=== PATIENT | female | born 2000 | race Caucasian/White ===

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

== ENCOUNTER → 2020-01-04 | Outpatient (REF) | payer MEDICAID ==
[~2020-01-04] MED LIST changes: +KEPP1TAB PO
[2020-01-05 14:49] LABS: HIV 1&2 SCREEN CENTAUR NEGATIVE (NEGATIVE)
[2020-01-05 15:18] LABS: CHLAMYDIA DNA AMPLIFICATION NEGATIVE (NEGATIVE); GC DNA AMPLIFICATION NEGATIVE (NEGATIVE)
[2020-01-06 07:16] LABS: HEPATITIS A IgG TOTAL Positive (Negative)
== END ==
LOC: M LAB REF 19:25
PROVIDERS: ATTEND Nurse Practitioner Family
DX: Z11.3 Encounter for screening for infections with a predominantly sexual mode of transmission (principal)

== ENCOUNTER 2020-01-13 01:25 | Emergency (ER) | payer MEDICAID ==
[~2020-01-13] VITALS: Ht 167.6 cm; Wt 99.4 kg
[2020-01-13] MEDS ORDERED: NEXP1IMP SC (01:35)
[2020-01-13] MEDS ORDERED: NS 1,000 ML IV ONE (01:45)
[2020-01-13 01:52] LABS: BASO % 0.3 % (0.0-1.0); EOS # 0.2 10^3/uL (0.0-0.5); EOS % 1.6 % (0.0-3.0); HEMATOCRIT 42.4 % (36.0-47.0); HEMOGLOBIN 13.8 g/dl (12.0-15.5); LYMPH # 3.4 10^3/uL (1.5-5.0); LYMPH % 30.9 % (24.0-44.0); MEAN CORPUSCULAR HEMOGLOBIN 29.2 pg (27.0-33.0); MEAN CORPUSCULAR HGB CONC 32.5 g/dl (32.0-36.5); MEAN CORPUSCULAR VOLUME 89.6 fl (80.0-96.0); MONO # 0.5 10^3/uL (0.0-0.8); MONO % 4.1 % (0.0-5.0); NEUTROPHILS # 6.9 10^3/uL (1.5-8.5); NEUTROPHILS % 62.8 % (36.0-66.0); PLATELET COUNT, AUTOMATED 289 10^3/uL (150-450); RED BLOOD COUNT 4.73 10^6/uL (4.00-5.40)
[2020-01-13 01:58] LABS: VENOUS BASE EXCESS -2.2 (-2.0-2.0); VENOUS HCO3 22.2 MEQ/L (23.0-27.0); VENOUS O2 SATURATION 94.4 % (60.0-80.0); VENOUS PARTIAL PRESSURE CO2 37.5 mmHg (38.0-50.0); VENOUS PARTIAL PRESSURE O2 72.3 mmHg (30.0-50.0); VENOUS PH 7.391 UNITS (7.330-7.430); VENOUS STANDARD HCO3 22.5 MEQ/L; VENOUS TOTAL CO2 23.4 MEQ/L (24.0-28.0)
[2020-01-13 02:17] LABS: OSMOLALITY SERUM 295 MOSM/KG (275-295)
[2020-01-13 02:19] LABS: AMPHETAMINES LEVEL URINE NEGATIVE (NEGATIVE); BARBITURATES URINE NEGATIVE (NEGATIVE); BENZODIAZEPINES URINE NEGATIVE (NEGATIVE); CANNABINOIDS URINE NEGATIVE (NEGATIVE); COCAINE METABOLITE URINE NEGATIVE (NEGATIVE); METHADONE URINE NEGATIVE (NEGATIVE); OPIATES URINE NEGATIVE (NEGATIVE); PHENCYCLIDINE URINE NEGATIVE (NEGATIVE)
[2020-01-13 02:31] LABS: ACETAMINOPHEN LEVEL < 2.0 UG/ML (10.0-30.0); ALBUMIN 3.7 GM/DL (3.2-5.2); ALT/SGPT < 6 U/L (12-78); BILIRUBIN,DIRECT < 0.1 MG/DL (0.0-0.2); BILIRUBIN,TOTAL 0.3 MG/DL (0.2-1.0); BLOOD UREA NITROGEN 9 MG/DL (7-18); CALCIUM LEVEL 8.4 MG/DL (8.5-10.1); CARBON DIOXIDE LEVEL 23 MEQ/L (21-32); CHLORIDE LEVEL 105 MEQ/L (98-107); CPK CREATINE PHOSPHOKINASE 141 U/L (26-192); CREATININE FOR GFR 0.68 MG/DL (0.55-1.30); ETHYL ALCOHOL (ETHANOL) 0.009 % (0.000-0.010); GLUCOSE, FASTING 114 MG/DL (70-100); POTASSIUM SERUM 3.8 MEQ/L (3.5-5.1); SALICYLATE LEVEL < 1.7 MG/DL (5.0-30.0); SODIUM LEVEL 137 MEQ/L (136-145); TOTAL PROTEIN 6.9 GM/DL (6.4-8.2)
[2020-01-13 02:39] VITALS: BP 122/67
--- NOTE | 2020-01-13 02:46 | REP ---
Clinical: Drug overdose . Comparison: 10/29/2018 . Findings: The mediastinum and cardiac silhouette are stable and within normal limits for portable technique. The lung benavides are clear without acute consolidation, effusion, or pneumothorax. Skeletal structures are intact. Impression: No acute cardiopulmonary process appreciated. Electronically Signed by Chandra Orr MD 01/13/2020 02:37 A
--- NOTE | 2020-01-13 03:21 | ECGEPIP ---
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
== END 2020-01-13 02:40 | disposition left against medical advice (07) ==
LOC: M ED 01:25
DX: G40.509 Epileptic seizures related to external causes, not intractable, without status epilepticus (principal); F19.129 Other psychoactive substance abuse with intoxication, unspecified; F10.129 Alcohol abuse with intoxication, unspecified; Z88.0 Allergy status to penicillin; Z88.8 Allergy status to other drugs, medicaments and biological substances; Z91.040 Latex allergy status; Z79.899 Other long term (current) drug therapy
CPT/HCPCS: 71045; 80048; 80076; 80307; 82550; 82803; 83930; 84443; 85025; 93005; 93041; 94760; 96360; 99285; G0480

== ENCOUNTER → 2020-03-06 | Outpatient (REF) | payer MEDICAID ==
[~2020-03-06] MED LIST changes: -CLIN300C5 PO; +CLIN300C6 PO; +MACR100C43 PO; +NEXP1IMP SC; +VENTAER INH
[2020-03-06 18:11] LABS: BASO % 0.5 % (0.0-1.0); EOS # 0.3 10^3/uL (0.0-0.5); EOS % 3.5 % (0.0-3.0); HEMATOCRIT 42.6 % (36.0-47.0); HEMOGLOBIN 13.9 g/dl (12.0-15.5); LYMPH # 2.1 10^3/uL (1.5-5.0); LYMPH % 26.9 % (24.0-44.0); MEAN CORPUSCULAR HEMOGLOBIN 29.8 pg (27.0-33.0); MEAN CORPUSCULAR HGB CONC 32.6 g/dl (32.0-36.5); MEAN CORPUSCULAR VOLUME 91.2 fl (80.0-96.0); MONO # 0.4 10^3/uL (0.0-0.8); MONO % 5.8 % (0.0-5.0); NEUTROPHILS # 4.8 10^3/uL (1.5-8.5); NEUTROPHILS % 62.9 % (36.0-66.0); PLATELET COUNT, AUTOMATED 323 10^3/uL (150-450); RED BLOOD COUNT 4.67 10^6/uL (4.00-5.40); WHITE BLOOD COUNT 7.6 10^3/uL (4.0-10.0)
[2020-03-06 18:37] LABS: HEMOGLOBIN A1c 5.7 %
[2020-03-06 18:48] LABS: ALBUMIN 3.8 GM/DL (3.2-5.2); ALT/SGPT 8 U/L (12-78); BILIRUBIN,TOTAL 0.3 MG/DL (0.2-1.0); BLOOD UREA NITROGEN 7 MG/DL (7-18); CALCIUM LEVEL 8.5 MG/DL (8.5-10.1); CARBON DIOXIDE LEVEL 27 MEQ/L (21-32); CHLORIDE LEVEL 108 MEQ/L (98-107); CHOLESTEROL LEVEL 147 MG/DL (<200); CHOLESTEROL RISK RATIO 4.741 (<5); CREATININE FOR GFR 0.77 MG/DL (0.55-1.30); FREE T4 1.35 NG/DL (0.78-1.33); GLUCOSE, FASTING 97 MG/DL (70-100); HDL CHOLESTEROL 31 MG/DL (>40); LDL CHOLESTEROL 93 MG/DL (<100); NON-HDL-C 116 MG/DL; SODIUM LEVEL 141 MEQ/L (136-145); TRIGLYCERIDES LEVEL 115 MG/DL (<150)
[2020-03-06 19:28] LABS: HIV 1&2 SCREEN CENTAUR NEGATIVE (NEGATIVE)
[2020-03-06 21:46] LABS: CHLAMYDIA DNA AMPLIFICATION NEGATIVE (NEGATIVE); GC DNA AMPLIFICATION NEGATIVE (NEGATIVE)
[2020-03-07 10:33] LABS: TOTAL 25(OH) VITAMIN D 27.5 NG/ML (30.0-100.0)
[2020-03-08 08:42] LABS: HEPATITIS B SURFACE ANTIGEN NEGATIVE (NEGATIVE)
[2020-03-08 09:09] LABS: HEPATITIS C VIRUS ABY INDEX 0.2 INDEX (<0.8)
[2020-03-08 09:10] LABS: HEPATITIS B CORE ANTIBODY IGM NEGATIVE (NEGATIVE)
[2020-03-08 09:12] LABS: HEPATITIS A ANTIBODY IGM NEGATIVE (NEGATIVE)
== END ==
LOC: M LAB REF 16:37
PROVIDERS: ATTEND Family Medicine Addiction Medicine
DX: Z20.2 Contact with and (suspected) exposure to infections with a predominantly sexual mode of transmission (principal)

== ENCOUNTER 2020-05-27 19:55 | Emergency (ER) | payer MEDICAID, OTHER ==
[~2020-05-27] VITALS: Ht 167.6 cm; Wt 87.8 kg
[~2020-05-27 19:55] MED LIST changes: +CLIN300C5 PO; -CLIN300C6 PO; -MACR100C43 PO; -VENTAER INH
[2020-05-27 23:00] VITALS: BP 112/70
--- NOTE | 2020-06-19 16:42 | REP ---
PORTABLE SINGLE VIEW CHEST HISTORY: Cough. FINDINGS: Single frontal view of the chest was performed and compared to prior study of 01/13/2020. There is no acute infiltrate. Lungs are clear. Heart is normal in size. The mediastinal silhouette is unremarkable. IMPRESSION: No acute pulmonary disease. MTDD
== END 2020-05-27 23:45 | disposition home or self-care (01) ==
LOC: M ED 19:55
DX: J06.9 Acute upper respiratory infection, unspecified (principal); F41.9 Anxiety disorder, unspecified; G40.909 Epilepsy, unspecified, not intractable, without status epilepticus; Z79.3 Long term (current) use of hormonal contraceptives; Z79.899 Other long term (current) drug therapy; Z88.0 Allergy status to penicillin; Z88.8 Allergy status to other drugs, medicaments and biological substances; Z91.040 Latex allergy status; Z91.048 Other nonmedicinal substance allergy status

== ENCOUNTER → 2020-05-31 | Outpatient (REF) | payer MEDICAID, OTHER | LOC: M LAB REF 18:55 | PROVIDERS: ATTEND Family Medicine Addiction Medicine | DX: J02.9 Acute pharyngitis, unspecified (principal) ==

== ENCOUNTER 2020-07-18 16:02 | Emergency (ER) | payer OTHER ==
[~2020-07-18] VITALS: Ht 167.6 cm; Wt 90.6 kg
[2020-07-18 17:56] LABS: BASO % 0.4 % (0.0-1.0); EOS # 0.3 10^3/uL (0.0-0.5); EOS % 2.6 % (0.0-3.0); HEMATOCRIT 43.2 % (36.0-47.0); HEMOGLOBIN 14.3 g/dl (12.0-15.5); LYMPH # 2.5 10^3/uL (1.5-5.0); MEAN CORPUSCULAR HEMOGLOBIN 30.2 pg (27.0-33.0); MEAN CORPUSCULAR HGB CONC 33.1 g/dl (32.0-36.5); MEAN CORPUSCULAR VOLUME 91.1 fl (80.0-96.0); MONO # 0.5 10^3/uL (0.0-0.8); MONO % 4.4 % (0.0-5.0); NEUTROPHILS # 7.2 10^3/uL (1.5-8.5); NEUTROPHILS % 67.9 % (36.0-66.0); PLATELET COUNT, AUTOMATED 297 10^3/uL (150-450); RED BLOOD COUNT 4.74 10^6/uL (4.00-5.40); WHITE BLOOD COUNT 10.6 10^3/uL (4.0-10.0)
[2020-07-18 18:30] LABS: BLOOD UREA NITROGEN 12 MG/DL (7-18); CALCIUM LEVEL 8.7 MG/DL (8.5-10.1); CARBON DIOXIDE LEVEL 26 MEQ/L (21-32); CHLORIDE LEVEL 107 MEQ/L (98-107); CREATININE FOR GFR 0.77 MG/DL (0.55-1.30); GLUCOSE, FASTING 103 MG/DL (70-100); HCG, SERUM QUANTITATIVE 22 MIU/ML; POTASSIUM SERUM 4.2 MEQ/L (3.5-5.1); SODIUM LEVEL 139 MEQ/L (136-145)
--- NOTE | 2020-07-18 18:44 | REPVR ---
PROCEDURE INFORMATION: Exam: US First Trimester, Transabdominal and US , Transvaginal Exam date and time: 07/18/2020 6:31 PM Age: 20 years old Clinical indication: complicated by abdominal or pelvic pain; Lower; First trimester; Gestational age or lmp: 06/19/2020; Additional info: Cramping/hcg indeterminate TECHNIQUE: Imaging protocol: Real-time transabdominal obstetrical ultrasound of the maternal pelvis and a first trimester , less than 14 weeks 0 days, with image documentation. Transvaginal imaging was used for better evaluation of the fetus, adnexa, and/or cervix. COMPARISON: No relevant prior studies available. FINDINGS: Gestation: No intrauterine gestation is visualized. MATERNAL: Uterus: Uterus measures 9.7 x 4.5 x 5.5 cm. Endometrium measures 1.7 cm. Cervix: Unremarkable. Right adnexa: Right ovary measures 3.5 x 1.4 x 1.7 cm. Right ovary appears within normal limits. Left adnexa: Left ovary measures 2.9 x 1.6 x 1.4 cm. Left adnexal cystic lesion measuring 4.0 x 2.7 x 2.6 cm. Intraperitoneal space: No intraperitoneal free fluid. IMPRESSION: 1. No intrauterine gestation is present. 2. Left adnexal cystic lesion measuring 4.0 x 2.7 x 2.6 cm. Possible paraovarian cyst, adnexal ectopic is not excluded and close follow-up is recommended. Electronically signed by: Steve Gallo On 07/18/2020 18:44:07 PM
[2020-07-18 19:24] VITALS: BP 127/72
--- NOTE | 2020-07-19 08:54 | IPNPDOC ---
Text Note Date of Service The patient was seen on 07/19/20. NOTE I was called regarding lab and ultrasound findings for Maranda. She presented for cramping, has history of 5 miscarriages and 1 live . hcg quant 22, Rh pos. Ultrasound shows no IUP (hcg too low) but paracystic lesion that is stable from images in 2018, likely para-ovarian cyst. Plan to repeat hcg in 48 hours. Pt is currently unregistered with a practice. I called the phone number listed in Summary and left a voicemail giving phone number to the [facility] clinic and instructing Maranda to call after her lab results to follow up (should see doubling of hcg over 48hr in a viable ). Also instructed to schedule a follow up visit in 2 weeks and we can repeat her u/s in clinic then, should see something in the uterus in a normal . She can follow up sooner for severe pain/bleeding/etc in the ER. Magi Sparks MD OBGYN VS,Mello, I+O VSMello I+O Laboratory Tests 07/18/20 17:42 Vital Signs Date Time Temp Pulse Resp B/P (MAP) Pulse Ox O2 Delivery O2 Flow Rate FiO2 07/18/20 19:24 98.3 85 18 127/72 (90) 97 07/18/20 16:02 Room Air Magi Sparks MD Jul 19, 2020 08:54
--- NOTE | 2020-07-21 18:34 | ED PDOC ---
Post-Departure Follow-Up jose manuel pena faxed formal report of 1st trimester us for fu Ashley Anderson MD Jul 21, 2020 18:34
== END 2020-07-18 19:26 | disposition home or self-care (01) ==
LOC: M ED 16:02
DX: O99.891 Other specified diseases and conditions complicating pregnancy (principal); R10.9 Unspecified abdominal pain; O99.511 Diseases of the respiratory system complicating pregnancy, first trimester; J45.909 Unspecified asthma, uncomplicated; Z88.0 Allergy status to penicillin; O99.331 Smoking (tobacco) complicating pregnancy, first trimester; F17.210 Nicotine dependence, cigarettes, uncomplicated; Z3A.00 Weeks of gestation of pregnancy not specified

== ENCOUNTER → 2020-07-20 | Outpatient (CLI) | payer OTHER | LOC: M LAB 15:02 | PROVIDERS: ATTEND Physician Assistant | DX: O99.891 Other specified diseases and conditions complicating pregnancy (principal); R10.2 Pelvic and perineal pain; Z3A.00 Weeks of gestation of pregnancy not specified ==

== ENCOUNTER → 2020-08-04 | Outpatient (REF) | payer OTHER | LOC: M PLALAB 14:52 | PROVIDERS: ATTEND Obstetrics & Gynecology | DX: Z3A.01 Less than 8 weeks gestation of pregnancy (principal) ==

== ENCOUNTER → 2020-09-18 | Outpatient (REF) | payer OTHER ==
[~2020-09-18] MED LIST changes: -CLIN300C5 PO; +CLIN300C6 PO
[2020-09-18 15:14] LABS: HEMATOCRIT 40.6 % (36.0-47.0); HEMOGLOBIN 14.1 g/dl (12.0-15.5); MEAN CORPUSCULAR HEMOGLOBIN 31.4 pg (27.0-33.0); MEAN CORPUSCULAR HGB CONC 34.7 g/dl (32.0-36.5); MEAN CORPUSCULAR VOLUME 90.4 fl (80.0-96.0); PLATELET COUNT, AUTOMATED 299 10^3/uL (150-450); RED BLOOD COUNT 4.49 10^6/uL (4.00-5.40); WHITE BLOOD COUNT 13.4 10^3/uL (4.0-10.0)
[2020-09-18 15:45] LABS: TOTAL PROTEIN,RANDOM URINE 28.8 MG/DL (0.0-12.0)
[2020-09-18 16:19] LABS: ALT/SGPT < 6 U/L (12-78); BILIRUBIN,TOTAL 0.3 MG/DL (0.2-1.0); CREATININE FOR GFR 0.59 MG/DL (0.55-1.30); GLUCOSE CHALLENGE TEST 1 HOUR 149 MG/DL (LESS THAN 140); LDH LACTATE DEHYDROGENASE 208 U/L (84-246); URIC ACID 2.6 MG/DL (2.6-6.0)
[2020-09-18 16:26] LABS: HEPATITIS C VIRUS ABY INDEX 0.1 INDEX (<0.8)
[2020-09-18 16:27] LABS: HIV 1&2 SCREEN CENTAUR NEGATIVE (NEGATIVE)
[2020-09-18 16:41] LABS: CHLAMYDIA DNA AMPLIFICATION NEGATIVE (NEGATIVE); GC DNA AMPLIFICATION NEGATIVE (NEGATIVE)
== END ==
LOC: M PLALAB 11:57
PROVIDERS: ATTEND Obstetrics & Gynecology
DX: Z34.80 Encounter for supervision of other normal pregnancy, unspecified trimester (principal); Z3A.00 Weeks of gestation of pregnancy not specified

== ENCOUNTER → 2020-09-18 | Outpatient (REF) | payer OTHER ==
[2020-09-18 17:16] LABS: BASO % 0.2 % (0.0-1.0); EOS # 0.3 10^3/uL (0.0-0.5); EOS % 2.2 % (0.0-3.0); HEMATOCRIT 43.2 % (36.0-47.0); HEMOGLOBIN 14.3 g/dl (12.0-15.5); LYMPH # 2.8 10^3/uL (1.5-5.0); LYMPH % 20.9 % (24.0-44.0); MEAN CORPUSCULAR HGB CONC 33.1 g/dl (32.0-36.5); MEAN CORPUSCULAR VOLUME 90.8 fl (80.0-96.0); MONO # 0.5 10^3/uL (0.0-0.8); MONO % 3.7 % (0.0-5.0); NEUTROPHILS # 9.5 10^3/uL (1.5-8.5); NEUTROPHILS % 72.2 % (36.0-66.0); PLATELET COUNT, AUTOMATED 316 10^3/uL (150-450); RED BLOOD COUNT 4.76 10^6/uL (4.00-5.40); WHITE BLOOD COUNT 13.2 10^3/uL (4.0-10.0)
[2020-09-18 17:34] LABS: HEMOGLOBIN A1c 4.9 %
[2020-09-18 17:49] LABS: ALBUMIN 3.3 GM/DL (3.2-5.2); ALT/SGPT < 6 U/L (12-78); BILIRUBIN,TOTAL 0.2 MG/DL (0.2-1.0); BLOOD UREA NITROGEN 6 MG/DL (7-18); CALCIUM LEVEL 8.6 MG/DL (8.5-10.1); CARBON DIOXIDE LEVEL 26 MEQ/L (21-32); CHLORIDE LEVEL 104 MEQ/L (98-107); CHOLESTEROL LEVEL 216 MG/DL (<200); CHOLESTEROL RISK RATIO 3.789 (<5); FREE T4 1.28 NG/DL (0.78-1.33); GLUCOSE, FASTING 83 MG/DL (70-100); HDL CHOLESTEROL 57 MG/DL (>40); LDL CHOLESTEROL 133 MG/DL (<100); NON-HDL-C 159 MG/DL; POTASSIUM SERUM 4.1 MEQ/L (3.5-5.1); SODIUM LEVEL 139 MEQ/L (136-145); TOTAL PROTEIN 6.9 GM/DL (6.4-8.2); TRIGLYCERIDES LEVEL 132 MG/DL (<150)
[2020-09-18 17:51] LABS: TOTAL 25(OH) VITAMIN D 9.6 NG/ML (30.0-100.0)
== END ==
LOC: M LAB REF 16:32
PROVIDERS: ATTEND Nurse Practitioner Family
DX: R73.03 Prediabetes (principal); F17.200 Nicotine dependence, unspecified, uncomplicated; F50.9 Eating disorder, unspecified

== ENCOUNTER → 2020-09-25 | Outpatient (REF) | payer OTHER | LOC: M PLALAB 08:14 | PROVIDERS: ATTEND Obstetrics & Gynecology | DX: O99.810 Abnormal glucose complicating pregnancy (principal) ==

== ENCOUNTER → 2020-09-28 | Outpatient (REF) | payer OTHER ==
[~2020-09-28] MED LIST changes: +MACR100C43 PO; +VENTAER INH
== END ==
LOC: M SFHCWAGY 13:27
PROVIDERS: ATTEND Advanced Practice Midwife
DX: Z34.82 Encounter for supervision of other normal pregnancy, second trimester (principal); Z3A.14 14 weeks gestation of pregnancy

== ENCOUNTER 2020-10-03 18:26 | Emergency (ER) | payer OTHER ==
[~2020-10-03] VITALS: Ht 167.6 cm; Wt 81.8 kg
[~2020-10-03 18:26] MED LIST changes: -MACR100C43 PO; -VENTAER INH
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
--- OUTSIDE RECORDS SUMMARY | 2020-10-03 19:35 | CCD ---
Author Author [facility] Organization [facility] Address Unknown Phone Unavailable Care Team Providers Care Telecommunications Administrator Name Role Phone Magi Sparks Unavailable PROBLEMS Type Condition ICD9-CM Code [id number] Code Onset Dates Condition S tatus SNOMED Code Notes Problem Personal history of gestational diabetes Z86.32 Active 777622295 Problem Supervision of other normal Z34.80 Ac tive 752074271 Problem Cigarette nicotine dependence in remission F17.211 Active 972539186 Problem Obesity complicating in first trimester O99.21 1 Active Problem Seizure disorder G40.909 Active 388786339 Problem Obesity E66.9 Active 217170880 ALLERGIES Allergen (clinical drug ingredient) Drug/Non Drug Allergy do cumented on EMR Reaction Allergy Type Onset Date Status augmentin Anaphylaxis Non Drug Allergy Active penicillin V Penicillin V Potassium(ND Code:[address]-27) U nknown Drug Allergy Active amoxicillin / clavulanate Augmentin(NDC Code:[address]-61) Unkn own Drug Allergy Active penicllin Anaphylaxis Non Drug Allergy Active latex Unknown Non Drug Allergy 08/04/2020 Active ENCOUNTERS from 2000 to 2020-09-25 Encounter Location Date Provider Diagnosis [facility] [place] [address] Sep, Magi Sparks Abnormal glucose aff ecting O99.810 IMMUNIZATIONS No Information SOCIAL HISTORY Tobacco Use: Social History Observation Description Date Details (start date - stop date) Current Smoker Sex Assigned At : Social History Observation Description Sex Assigned At Unknown Education: Question Answer Notes Level of Education: Not finished High School Language: Question Answer Notes Languages spoken: [place] Denominational: Question Answer Notes Denominational 33 None Sexual Hx: Question Answer Notes Had sex in the last 12 months (vaginal, oral, or anal)? Yes LMP: unknown Have you ever had an STD? No Prevention Strategies discussed: Other with Men only Use protection? Yes How often? All of the time Alcohol Screening: Question Answer Notes Did you have a drink containing alcohol in the past year? No Points 0 Interpretation Negative Tobacco Use: Question Answer Notes Are you a: current smoker Are you a: current smoker Patient counseled on the dangers of tobacco use and urged to quit: 03/15/2019 How many cigarettes a day do you smoke? 5 or less How many cigarettes a day do you smoke? 6-10 Are you interested in quitting? Ready to quit Are you interested in quitting? Not ready to quit Counseled the patient on tobacco use, cessation provided REASON FOR REFERRAL No Information VITAL SIGNS No information MEDICATIONS Medication SIG (Take, Route, Frequency, Duration) Notes Start Da te End Date Status Reglan 10 MG 1 tablet before meals Orally Twice a day for 30 day(s) Aug, Active PROCEDURES No Information RESULTS No Results REASON FOR VISIT No Information MEDICAL (GENERAL) HISTORY Type Description Date Medical History epilepsy Surgical History bilateral octoplasty 2009 Surgical History bilateral otoplasty Goals Section No Information Health Concerns No Information MEDICAL EQUIPMENT No Information MENTAL STATUS No Information FUNCTIONAL STATUS No Information ASSESSMENTS Encounter Date Diagnosis Assessment Notes Treatment Notes Treatm ent Clinical Notes Sep, Abnormal glucose affecting (ICD-10 - O 99.810) PLAN OF TREATMENT Medication Medication Name Sig Start Date Stop Date Reglan 10 MG 1 tablet before meals Orally Twice a day for 30 day(s) Aug, Treatment Notes Test Name Order Date GLUCOSE WALI 3 HR GESTATIONAL 2020-09-25 HEMOGLOBIN A1c 2020-09-25 Next Appt Details Provider Name:Susie Longoria, 2020-09-28 10:00:00 AM, [address] [place], [address], Provider Name:Sridevi Gonzalez, 01:00:00 PM, [address] [facility], [address], [place], [address], Insurance Providers Payer Name Payer Address Payer Phone Insured Name Patient Relati onship to Insured Coverage Start Date Coverage End Date [facility] [place] [address] [facility] [phone] PORTER CHOWDHURY self
--- OUTSIDE RECORDS SUMMARY | 2020-10-03 19:35 | CCD ---
Author Organization Unknown Address [address] [place] [address] Phone [phone] Care Team Providers Care Defense Travel Administrator Name Role Phone Carol Patino Unavailable Unavailable Allergies Code Code System Name Reaction Severity Status Onset 444868 RxNorm Augmentin Active 11/16/2019 6292362 RxNorm Latex Active 11/16/2019 Notes: PENNICILLIAN Medications Name Status Start Date Stop Date fluticasone propionate 50 mcg/actuation nasal spray,suspension A ctive Not available hydrocodone 5 mg-acetaminophen 325 mg tablet Active Not available hydroxyzine HCl 50 mg tablet TAKE ONE TABLET BY MOUTH THREE TIMES A DAY NEEDED Active Not available levetiracetam 500 mg tablet Active Not available Problems Name Status Onset [...] Norm al HCG, Serum Quantitative 45 mIU/mL Final [facility]: [address] [place] [address] 07/18/2020 Istat B-HCG Normal Istat B-HCG 23.8 F inal [facility]: [address] [facility] 07/18/2020 CBC W/ Auto Diff High White Blood Count 10.6 10 4.0-10.0 10 [facility]: [address] [place] [address] Normal Red Blood Count 4.74 10 4.00-5.40 10 [facility]: [address] [facility] Normal Hemoglobin 14.3 g/dL 12.0-15.5 g/dL [facility]: [address] [place] [address] Normal Hematocrit 43.2 % 36.0-47.0 % [facility]: [address] [place] [address] Normal Mean Corpuscular Volume 91.1 fL 80.0 -96.0 fL [facility]: [address] [place] [address] Normal Mean Corpuscular Hemoglobin 30.2 pg 27.0-33.0 pg [facility]: [address] [place] [address] Normal Mean Corpuscular HGB Conc 33.1 g/dL 32.0-36.5 g/dL [facility]: [address] [place] [address] Normal Red Cell Distribution Width 12.9 % 1 1.5-14.5 % [facility]: [address] [place] [address] Normal Platelet Count, Automated 297 10 150 -450 10 [facility]: 0 [facility] High Neutrophils % 67.9 % 36.0-66.0 % [facility]: [address] [facility] Normal Lymph % 24.0 % 24.0-44.0 % [facility]: [address] [facility] Normal [place] % 4.4 % 0.0-5.0 % [facility]: [address] [facility] Normal Eos % 2.6 % 0.0-3.0 % [facility]: 0 [facility] Normal Baso % 0.4 % 0.0-1.0 % [facility]: [address] [facility] Normal Immature Granulocyte % 0.7 % 0-3.0 % [facility]: [address] [facility] Normal Nucleated Red Blood Cell % 0.0 % 0- 0 % [facility]: [address] [facility] Normal Neutrophils # 7.2 10 1.5-8.5 10 [facility]: [address] [facility] Normal Lymph # 2.5 10 1.5-5.0 10 [facility]: [address] [facility] Normal [place] # 0.5 10 0.0-0.8 10 [facility]: [address] [facility] Normal Eos # 0.3 10 0.0-0.5 10 [facility]: [address] [facility] Normal Baso # 0.0 10 0.0-0.2 10 [facility]: [address] [facility] 07/18/2020 UA W/ Reflex to Culture Normal Appearance, Urine Rfx hazy clear [facility]: [address] [facility] Normal Color, Urine Rfx yellow yellow [facility]: [address] [facility] Normal pH,urine Rfx 6.0 units 5.0-9.0 units [facility]: [address] [facility] Normal Specific [place] Ur Auto Rfx 1.012 1.002-1.035 [facility]: [address] [facility] Normal Protein, Urine Auto Rfx negative mg/ dL negative mg/dL [facility]: [address] [facility] Normal Glucose, Urine (UA) Auto Rfx n egative mg/dL negative mg/dL [facility]: [address] [facility] Normal Ketone, Urine Auto Rfx negative mg/d L negative mg/dL [facility]: [address] [facility] Normal Urobilinogen, Urine Auto Rfx 0.2 mg/ dL 0.0-2.0 mg/dL [facility]: [address] [facility] Normal Bilirubin, Urine Auto Rfx negative n egative [facility]: [address] [facility] Normal Nitrite, Urine Auto Rfx negative neg ative [facility]: [address] [facility] Normal Leukocyte Esterase Ur Auto Rfx negat jose negative [facility]: [address] [facility] Normal Blood, Urine Blood Rfx negative nega tive [facility]: [address] [facility] Normal WBC, Urine Auto Rfx 3 /hpf 0-3 /hpf [facility]: [address] [facility] Normal RBC, Urine Auto Rfx 2 /hpf 0-3 /hpf [facility]: [address] [facility] Normal Bacteria, Urine Auto Rfx negative ne gative [facility]: [address] [facility] Normal Squam Epithelial Cell Ur Aurfx 4 /hp f 0-6 /hpf [facility]: [address] [facility] Normal Hyaline Cast, Urine Auto Rfx 0 /lpf 0-1 /lpf [facility]: [address] [facility] 07/18/2020 BMP, Serum or Plasma High Glucose, Fastin g 103 mg/dL 70-100 mg/dL [facility]: [address] [facility] Normal Blood Urea Nitrogen 12 mg/dL 7-18 mg /dL [facility]: [address] [facility] Normal Creatinine for GFR 0.77 mg/dL 0.55-1 .30 mg/dL [facility]: [address] [facility] Normal Sodium Level 139 mEq/L 136-145 mEq/L [facility]: [address] [facility] Normal Potassium Serum 4.2 mEq/L 3.5-5.1 mE q/L [facility]: [address] [facility] Normal Chloride Level 107 mEq/L 98-107 mEq/ L [facility]: [address] [facility] Normal Carbon Dioxide Level 26 mEq/L 21-32 mEq/L Final [facility]: [address] [facility] Low Anion Gap 6 mEq/L 8-16 mEq/L Final [facility]: 0 [facility] Normal Calcium Level 8.7 mg/dL 8.5-10.1 mg/ dL Final [facility]: [address] [facility] 07/18/2020 Choriogonadotropin, Quant, Serum or Plasma Norm al HCG, Serum Quantitative 22 mIU/mL Final [facility]: [address] [place] [address] Past Encounters 08/11/2020 Severe Recurrent Major Depression with Psychotic Features [facility] [address] [place] [address], Ph. 07/27/2020 Severe Recurrent Major Depression with Psychotic Features [facility] [address] [place] [address], Ph. Social History None recorded. Vaccine List [...]
--- OUTSIDE RECORDS SUMMARY | 2020-10-03 19:35 | CCD ---
Author Author [facility] Organization [facility] Address Unknown Phone Unavailable Care Team Providers Care Presiding Steward Name Role Phone Magi Sparks Unavailable PROBLEMS Type Condition ICD9-CM Code [id number] Code Onset Dates Condition S tatus SNOMED Code Notes Problem Personal history of gestational diabetes Z86.32 Active 233908591 Problem Supervision of other normal Z34.80 Ac tive 608262067 Problem Obesity complicating in first trimester O99.21 1 Active Problem Seizure disorder G40.909 Active 544397728 Problem Obesity E66.9 Active 485824061 ALLERGIES Allergen (clinical drug ingredient) Drug/Non Drug Allergy do cumented on EMR Reaction Allergy Type Onset Date Status latex Unknown Non Drug Allergy 08/04/2020 Active penicillin V Penicillin V Potassium([facility] Code:[address]-03) U nknown Drug Allergy Active amoxicillin / clavulanate Augmentin([facility] Code:[address]-11) Unkn own Drug Allergy Active ENCOUNTERS from 2000 to 2020-08-22 Encounter Location Date Provider Diagnosis [facility] [address] [place] [address] 13 Jul, 2020 Magi Sparks Diseases of the nerv ous system complicating , first trimester O99.351 ; Seizure disorder G40.909 ; Obesity complicating in first trimester O99.211 and 6 weeks gestation of Z3A.01 IMMUNIZATIONS No Information SOCIAL HISTORY Tobacco Use: Social History Observation Description Date Details (start date - stop date) Current Smoker Sex Assigned At : Social History Observation Description Sex Assigned At Unknown Tobacco Use: Question Answer Notes Are you a: current smoker How many cigarettes a day do you smoke? 6-10 Are you interested in quitting? Not ready to quit REASON FOR REFERRAL No Information VITAL SIGNS Weight 200 lbs Jul, Height 66 in Jul, BMI 32.28 kg/m2 Jul, Blood pressure systolic 102 mm Hg Jul, Blood pressure diastolic 68 mm Hg Jul, MEDICATIONS No Known Medications PROCEDURES No Information RESULTS No Results REASON FOR VISIT 1ST PN MEDICAL (GENERAL) HISTORY Type Description Date Medical History epilepsy Surgical History bilateral otoplasty Goals Section No Information Health Concerns No Information MEDICAL EQUIPMENT No Information MENTAL STATUS No Information FUNCTIONAL STATUS No Information ASSESSMENTS Encounter Date Diagnosis Assessment Notes Treatment Notes Treatm ent Clinical Notes Jul, Diseases of the nervous syst em complicating , first trimester (ICD-10 - O99.351) Jul, Seizure disorder (ICD-10 - G40.909) Jul, Obesity complicating pregnan cy in first trimester (ICD-10 - O99.211) Jul, 6 weeks gestation of (ICD-10 - Z3A.01) PLAN OF TREATMENT Treatment Notes Test Name Order Date Type and Screen Prenatal1 2020-08-22 CBC - Complete Blood Count 2020-08-22 CHLAMYDIA & GC DNA AMPLIFICAT 2020-08-22 HEPATITIS C ANTIBODY INDEX 2020-08-22 HIV 1&2 ANTIBODY SCREEN 2020-08-22 Pre Eclampsia Profile 2020-08-22 SYPHILIS ANTIBODY (RPR SCREEN) 2020-08-22 RUBELLA IMMUNE STATUS IgG 2020-08-22 CREATININE,RANDOM URINE 2020-08-22 TOTAL PROTEIN,RANDOM URINE 2020-08-22 URINE CULTURE 2020-08-22 Glucose Challenge Test 1 Hour 2020-08-22 HBSAG 2020-08-22 Next Appt Details 3 Weeks Reason:PN Follow Up:3 WeeksPN Insurance Providers Payer Name Payer Address Payer Phone Insured Name Patient Relati onship to Insured Coverage Start Date Coverage End Date [facility] COMMUNITY PLAN [facility] [address] [facility] [phone] PORTER CHOWDHURY self
--- OUTSIDE RECORDS SUMMARY | 2020-10-03 19:35 | CCD ---
Author Organization Unknown Address [address] [place] [address] Phone [phone] Care Team Providers Care Lemon Grower Name Role Phone Carol Patino Unavailable Unavailable Allergies Code Code System Name Reaction Severity Status Onset 695454 RxNorm Augmentin Active 11/16/2019 5634018 RxNorm Latex Active 11/16/2019 Notes: PENNICILLIAN Medications [...] Norm al HCG, Serum Quantitative 45 mIU/mL [facility]: [address] [place] [address] 07/18/2020 Istat B-HCG Normal Istat B-HCG 23.8 F inal [facility]: [address] [facility] 07/18/2020 CBC W/ Auto Diff High White Blood Count 10.6 10 4.0-10.0 10 [facility]: [address] [place] [address] Normal Red Blood Count 4.74 10 4.00-5.40 10 [facility]: [address] [place] [address] Normal Hemoglobin 14.3 g/dL 12.0-15.5 g/dL [facility]: [address] [place] [address] Normal Hematocrit 43.2 % 36.0-47.0 % [facility]: [address] [place] [address] Normal Mean Corpuscular Volume 91.1 fL 80.0 -96.0 fL [facility]: [address] [place] [address] Normal Mean Corpuscular Hemoglobin 30.2 pg 27.0-33.0 pg [facility]: [address] [place] [address] Normal Mean Corpuscular HGB Conc 33.1 g/dL 32.0-36.5 g/dL [facility]: [address] [place] [address] Normal Red Cell Distribution Width 12.9 % 1 1.5-14.5 % [facility]: [address] [place] [address] Normal Platelet Count, Automated 297 10 150 -450 10 [facility]: 0 [facility] High Neutrophils % 67.9 % 36.0-66.0 % Fin [facility]: 0 [facility] Normal Lymph % 24.0 % 24.0-44.0 % [facility]: [address] [facility] Normal [place]cd[place] % 4.4 % 0.0-5.0 % [facility]: [address] [facility] Normal Eos % 2.6 % 0.0-3.0 % [facility]: [address] [facility] Normal Baso % 0.4 % 0.0-1.0 % [facility]: [address] [facility] Normal Immature Granulocyte % 0.7 % 0-3.0 % [facility]: [address] [facility] Normal Nucleated Red Blood Cell % 0.0 % 0- 0 % [facility]: [address] [facility] Normal Neutrophils # 7.2 10 1.5-8.5 10 [facility]: [address] [facility] Normal Lymph # 2.5 10 1.5-5.0 10 [facility]: [address] [facility] Normal Mcdonough # 0.5 10 0.0-0.8 10 [facility]: [address] [facility] Normal Eos # 0.3 10 0.0-0.5 10 [facility]: [address] [facility] Normal Baso # 0.0 10 0.0-0.2 10 [facility]: [address] [facility] 07/18/2020 UA W/ Reflex to Culture Normal Appearance, Urine Rfx hazy clear [facility]: [address] [facility] Normal Color, Urine Rfx yellow yellow [facility]: [address] [facility] Normal pH,urine Rfx 6.0 units 5.0-9.0 units [facility]: [address] [facility] Normal Specific [place] Ur Auto Rfx 1.012 1.002-1.035 [facility]: [address] [facility] Normal Protein, Urine Auto Rfx negative mg/ dL negative mg/dL [facility]: [address] [facility] Normal Glucose, Urine (UA) Auto Rfx n egative mg/dL negative mg/dL [facility]: [address] [facility] Normal Ketone, Urine Auto Rfx negative mg/d L negative mg/dL [facility]: [address] [facility] Normal Urobilinogen, Urine Auto Rfx 0.2 mg/ dL 0.0-2.0 mg/dL [facility]: [address] [facility] Normal Bilirubin, Urine Auto Rfx negative n egative [facility]: [address] [facility] Normal Nitrite, Urine Auto Rfx negative neg ative [facility]: [address] [facility] Normal Leukocyte Esterase Ur Auto Rfx negat jose negative [facility]: [address] [facility] Normal Blood, Urine Blood Rfx negative nega tive [facility]: [address] [facility] Normal WBC, Urine Auto Rfx 3 /hpf 0-3 /hpf [facility]: [address] [facility] Normal RBC, Urine Auto Rfx 2 /hpf 0-3 /hpf [facility]: [address] [facility] Normal Bacteria, Urine Auto Rfx negative ne gative [facility]: [address] [facility] Normal Squam Epithelial Cell Ur Aurfx 4 /hp f 0-6 /hpf [facility]: [address] [facility] Normal Hyaline Cast, Urine Auto Rfx 0 /lpf 0-1 /lpf [facility]: [address] [facility] 07/18/2020 BMP, Serum or Plasma High Glucose, Fastin g 103 mg/dL 70-100 mg/dL [facility]: [address] [facility] Normal Blood Urea Nitrogen 12 mg/dL 7-18 mg /dL [facility]: [address] [facility] Normal Creatinine for GFR 0.77 mg/dL 0.55-1 .30 mg/dL [facility]: [address] [facility] Normal Sodium Level 139 mEq/L 136-145 mEq/L [facility]: [address] [facility] Normal Potassium Serum 4.2 mEq/L 3.5-5.1 mE q/L [facility]: [address] [facility] Normal Chloride Level 107 mEq/L 98-107 mEq/ L [facility]: [address] [facility] Normal Carbon Dioxide Level 26 mEq/L 21-32 mEq/L Final [facility]: [address] [facility] Low Anion Gap 6 mEq/L 8-16 mEq/L Final [facility]: [address] [facility] Normal Calcium Level 8.7 mg/dL 8.5-10.1 mg/ dL Final [facility]: [address] [facility] 07/18/2020 Choriogonadotropin, Quant, Serum or Plasma Norm al HCG, Serum Quantitative 22 mIU/mL Final [facility]: [address] [facility] Past Encounters 09/18/2020 Relationship Distress with Spouse or Intimate Partner; Generalized Anxiety Disorder Ngozi Joe [facility] [place]: [address] [place] [phone], Ph. 09/18/2020 [facility] [address] [place] [phone], Ph. 08/30/2020 Severe Recurrent Major Depression with Psychotic Features Vidasima Franco [facility] [place]: [address] [place] [phone], Ph. 08/11/2020 Severe Recurrent Major Depression with Psychotic Features Vidasima Franco [facility] [place]: [address] [place] [phone], Ph. 07/27/2020 Severe Recurrent Major Depression with Psychotic Features Vidasima Franco [facility] [place]: [address] [place] [phone], Ph. Social History None recorded. Vaccine List [...]
--- OUTSIDE RECORDS SUMMARY | 2020-10-03 19:35 | CCD ---
Author Organization Unknown Address [address] [place] [address] Phone [phone] Care Team Providers Care Hand Mica Plate Layer Name Role Phone Carol Patino Unavailable Unavailable Allergies Code Code System Name Reaction Severity Status Onset 569676 RxNorm Augmentin Active 11/16/2019 7758689 RxNorm Latex Active 11/16/2019 Notes: PENNICILLIAN Medications [...] al HCG, Serum Quantitative 45 mIU/mL Final [facility]: [address] [place] [address] 07/18/2020 Istat B-HCG Normal Istat B-HCG 23.8 F inal [facility]: [address] [facility] 07/18/2020 CBC W/ Auto Diff High White Blood Count 10.6 10 4.0-10.0 10 [facility]: [address] [place] [address] Normal Red Blood Count 4.74 10 4.00-5.40 10 [facility]: [address] [facility] Normal Hemoglobin 14.3 g/dL 12.0-15.5 g/dL [facility]: [address] [place] [address] Normal Hematocrit 43.2 % 36.0-47.0 % [facility]: [address] [place] [address] Normal Mean Corpuscular Volume 91.1 fL 80.0 -96.0 fL [facility]: [address] [place] [address] Normal Mean Corpuscular Hemoglobin 30.2 pg 27.0-33.0 pg [facility]: [address] [place] [address] Normal Mean Corpuscular HGB Conc 33.1 g/dL 32.0-36.5 g/dL [facility]: [address] [place] [address] Normal Red Cell Distribution Width 12.9 % 1 1.5-14.5 % [facility]: [address] [place] [address] Normal Platelet Count, Automated 297 10 150 -450 10 [facility]: 0 [facility] High Neutrophils % 67.9 % 36.0-66.0 % [facility]: [address] [facility] Normal Lymph % 24.0 % 24.0-44.0 % [facility]: [address] [facility] Normal Rhea % 4.4 % 0.0-5.0 % [facility]: [address] [facility] Normal Eos % 2.6 % 0.0-3.0 % [facility]: 0 [facility] Normal Baso % 0.4 % 0.0-1.0 % [facility]: [address] [facility] Normal Immature Granulocyte % 0.7 % 0-3.0 % [facility]: [address] [facility] Normal Nucleated Red Blood Cell % 0.0 % 0- 0 % [facility]: [address] [facility] Normal Neutrophils # 7.2 10 1.5-8.5 10 [facility]: [address] [facility] Normal Lymph # 2.5 10 1.5-5.0 10 [facility]: [address] [facility] Normal Rhea # 0.5 10 0.0-0.8 10 [facility]: [address] [facility] Normal Eos # 0.3 10 0.0-0.5 10 [facility]: [address] [facility] Normal Baso # 0.0 10 0.0-0.2 10 [facility]: [address] [facility] 07/18/2020 UA W/ Reflex to Culture Normal Appearance, Urine Rfx hazy clear [facility]: [address] [facility] Normal Color, Urine Rfx yellow yellow [facility]: [address] [facility] Normal pH,urine Rfx 6.0 units 5.0-9.0 units [facility]: [address] [facility] Normal Specific [place] Ur Auto Rfx 1.012 1.002-1.035 [facility]: [address] [facility] Normal Protein, Urine Auto Rfx negative mg/ dL negative mg/dL [facility]: [address] [facility] Normal Glucose, Urine (UA) Auto Rfx n egative mg/dL negative mg/dL [facility]: [address] [facility] Normal Ketone, Urine Auto Rfx negative mg/d L negative mg/dL [facility]: [address] [facility] Normal Urobilinogen, Urine Auto Rfx 0.2 mg/ dL 0.0-2.0 mg/dL [facility]: [address] [facility] Normal Bilirubin, Urine Auto Rfx negative n egative [facility]: [address] [facility] Normal Nitrite, Urine Auto Rfx negative neg ative [facility]: [address] [facility] Normal Leukocyte Esterase Ur Auto Rfx negat jose negative [facility]: [address] [facility] Normal Blood, Urine Blood Rfx negative nega tive [facility]: [address] [facility] Normal WBC, Urine Auto Rfx 3 /hpf 0-3 /hpf [facility]: [address] [facility] Normal RBC, Urine Auto Rfx 2 /hpf 0-3 /hpf [facility]: [address] [facility] Normal Bacteria, Urine Auto Rfx negative ne gative [facility]: [address] [facility] Normal Squam Epithelial Cell Ur Aurfx 4 /hp f 0-6 /hpf [facility]: [address] [facility] Normal Hyaline Cast, Urine Auto Rfx 0 /lpf 0-1 /lpf [facility]: [address] [facility] 07/18/2020 BMP, Serum or Plasma High Glucose, Fastin g 103 mg/dL 70-100 mg/dL [facility]: [address] [facility] Normal Blood Urea Nitrogen 12 mg/dL 7-18 mg /dL [facility]: [address] [facility] Normal Creatinine for GFR 0.77 mg/dL 0.55-1 .30 mg/dL [facility]: [address] [facility] Normal Sodium Level 139 mEq/L 136-145 mEq/L [facility]: [address] [facility] Normal Potassium Serum 4.2 mEq/L 3.5-5.1 mE q/L [facility]: [address] [facility] Normal Chloride Level 107 mEq/L 98-107 mEq/ L [facility]: [address] [facility] Normal Carbon Dioxide Level 26 mEq/L 21-32 mEq/L Final [facility]: [address] [facility] Low Anion Gap 6 mEq/L 8-16 mEq/L Final [facility]: 0 [facility] Normal Calcium Level 8.7 mg/dL 8.5-10.1 mg/ dL Final [facility]: [address] [facility] 07/18/2020 Choriogonadotropin, Quant, Serum or Plasma Norm al HCG, Serum Quantitative 22 mIU/mL Final [facility]: [address] [place] [address] Past Encounters 07/27/2020 Severe Recurrent Major Depression with Psychotic Features Vida Franco, [facility]: [address] [place] [phone], Ph. Social History None recorded. Vaccine List [...]
--- OUTSIDE RECORDS SUMMARY | 2020-10-03 19:35 | CCD ---
Author Author [facility] Organization [facility] Address Unknown Phone Unavailable Care Team Providers Care Electrician Front Name Role Phone Pablito Hyatt Unavailable PROBLEMS Type Condition ICD9-CM Code [id number] Code Onset Dates Condition S tatus SNOMED Code Notes Problem Personal history of gestational diabetes Z86.32 Active 588535964 Problem Supervision of other normal Z34.80 Ac tive 458691698 Problem Obesity complicating in first trimester O99.21 1 Active Problem Seizure disorder G40.909 Active 853366605 Problem Obesity E66.9 Active 359373513 ALLERGIES Allergen (clinical drug ingredient) Drug/Non Drug Allergy do cumented on EMR Reaction Allergy Type Onset Date Status latex Unknown Non Drug Allergy 08/04/2020 Active penicillin V Penicillin V Potassium([facility] Code:[address]-16) U nknown Drug Allergy Active amoxicillin / clavulanate Augmentin([facility] Code:[address]-18) Unkn own Drug Allergy Active ENCOUNTERS from 2000 to 2020-08-30 Encounter Location Date Provider Diagnosis [facility] [address] [place] [address] Aug, Pablito Edmar Encounter for superv ision of other normal , first trimester Z34.81 and 9 weeks gestation of Z3A.09 IMMUNIZATIONS No Information SOCIAL HISTORY Tobacco Use: [...] FOR REFERRAL No Information VITAL SIGNS Weight 203 lbs Aug, Height 66 in Aug, BMI 32.765 kg/m2 Aug, Blood pressure systolic 118 mm Hg Aug, Blood pressure diastolic 74 mm Hg Aug, MEDICATIONS Medication SIG (Take, Route, Frequency, Duration) Notes Start Da te End Date Status Reglan 10 MG 1 tablet before meals Orally Twice a day for 30 day(s) Aug, Active PROCEDURES No Information RESULTS No Results REASON FOR VISIT 3wk pn MEDICAL (GENERAL) HISTORY Type Description Date Medical History epilepsy Surgical History bilateral otoplasty Goals Section No Information Health Concerns No Information MEDICAL EQUIPMENT No Information MENTAL STATUS No Information FUNCTIONAL STATUS No Information ASSESSMENTS Encounter Date Diagnosis Assessment Notes Treatment Notes Treatm ent Clinical Notes Aug, Encounter for supervision of other normal , first trimester (ICD-10 - Z34.81) Aug, 9 weeks gestation of (ICD-10 - Z3A.09) PLAN OF TREATMENT Medication Medication Name Sig Start Date Stop Date Reglan 10 MG 1 tablet before meals Orally Twice a day for 30 day(s) Aug, Next Appt Details 4 Weeks Reason: Insurance Providers Payer Name Payer Address Payer Phone Insured Name Patient Relati onship to Insured Coverage Start Date Coverage End Date [facility] COMMUNITY PLAN [facility] [address] [facility] [phone] PORTER CHOWDHURY self
--- OUTSIDE RECORDS SUMMARY | 2020-10-03 19:35 | CCD ---
Author Organization Unknown Address [address] [place] [id number] Phone [phone] Care Team Providers Care Sizing Sponger Name Role Phone Carol Patino Unavailable Unavailable Allergies Code Code System Name Reaction Severity Status Onset 072732 RxNorm Augmentin Active 11/16/2019 6764831 RxNorm Latex Active 11/16/2019 Notes: PENNICILLIAN Medications [...] Norm al HCG, Serum Quantitative 45 mIU/mL [facility]: [address] [place] [address] 07/18/2020 Istat B-HCG Normal Istat B-HCG 23.[address] [facility]: [address] [facility] 07/18/2020 CBC W/ Auto Diff High White Blood Count 10.6 10 4.0-10.0 10 [facility]: [address] [place] [address] Normal Red Blood Count 4.74 10 4.00-5.40 10 [facility]: [address] [place] [address] Normal Hemoglobin 14.3 g/dL 12.0-15.5 g/dL [facility]: [address] [place] [address] Normal Hematocrit 43.2 % 36.0-47.0 % [facility]: [address] [place] [address] Normal Mean Corpuscular Volume 91.1 fL 80.0 -96.0 fL [facility]: [address] [place] [address] Normal Mean Corpuscular Hemoglobin 30.2 pg 27.0-33.0 pg [facility]: [address] [place] [address] Normal Mean Corpuscular HGB Conc 33.1 g/dL 32.0-36.5 g/dL [facility]: [address] [place] [address] Normal Red Cell Distribution Width 12.9 % 1 1.5-14.5 % [facility]: [address] [place] [address] Normal Platelet Count, Automated 297 10 150 -450 10 [facility]: 0 [facility] High Neutrophils % 67.9 % 36.0-66.0 % [facility]: 0 [facility] Normal Lymph % 24.0 % 24.0-44.0 % [facility]: [address] [facility] Normal [place] % 4.4 % 0.0-5.0 % [facility]: [address] [facility] Normal Eos % 2.6 % 0.0-3.0 % [facility]: [address] [facility] Normal Baso % 0.4 % 0.0-1.0 % [facility]: [address] [facility] Normal Immature Granulocyte % 0.7 % 0-3.0 % [facility]: [address] [facility] Normal Nucleated Red Blood Cell % 0.0 % 0- 0 % [facility]: [address] [facility] Normal Neutrophils # 7.2 10 1.5-8.[address] [facility]: [address] [facility] Normal Lymph # 2.5 10 1.5-5.0 10 [facility]: [address] [facility] Normal [place] # 0.5 10 0.0-0.8 10 [facility]: [address] [facility] Normal Eos # 0.3 10 0.0-0.5 10 [facility]: [address] [facility] Normal Baso # 0.0 10 0.0-0.2 10 [facility]: [address] [facility] 07/18/2020 UA W/ Reflex to Culture Normal Appearance, Urine Rfx hazy clear [facility]: 83 0 [facility] Normal Color, Urine Rfx yellow yellow [facility]: [address] [facility] Normal pH,urine Rfx 6.0 units 5.0-9.0 units [facility]: [address] [facility] Normal Specific [place] Ur Auto Rfx 1.012 1.002-1.035 [facility]: [address] [facility] Normal Protein, Urine Auto Rfx negative mg/ dL negative mg/dL [facility]: [address] [facility] Normal Glucose, Urine (UA) Auto Rfx n egative mg/dL negative mg/dL [facility]: [address] [facility] Normal Ketone, Urine Auto Rfx negative mg/d L negative mg/dL [facility]: [address] [facility] Normal Urobilinogen, Urine Auto Rfx 0.2 mg/ dL 0.0-2.0 mg/dL [facility]: [address] [facility] Normal Bilirubin, Urine Auto Rfx negative n egative [facility]: [address] [facility] Normal Nitrite, Urine Auto Rfx negative neg ative [facility]: [address] [facility] Normal Leukocyte Esterase Ur Auto Rfx negat jose negative [facility]: [address] [facility] Normal Blood, Urine Blood Rfx negative nega tive [facility]: [address] [facility] Normal WBC, Urine Auto Rfx 3 /hpf 0-3 /hpf [facility]: [address] [facility] Normal RBC, Urine Auto Rfx 2 /hpf 0-3 /hpf [facility]: [address] [facility] Normal Bacteria, Urine Auto Rfx negative ne gative [facility]: [address] [facility] Normal Squam Epithelial Cell Ur Aurfx 4 /hp f 0-6 /hpf [facility]: [address] [facility] Normal Hyaline Cast, Urine Auto Rfx 0 /lpf 0-1 /lpf [facility]: [address] [facility] 07/18/2020 BMP, Serum or Plasma High Glucose, Fastin g 103 mg/dL 70-100 mg/dL [facility]: 83 0 [facility] Normal Blood Urea Nitrogen 12 mg/dL 7-18 mg /dL [facility]: [address] [facility] Normal Creatinine for GFR 0.77 mg/dL 0.55-1 .30 mg/dL [facility]: [address] [facility] Normal Sodium Level 139 mEq/L 136-145 mEq/L [facility]: [address] [facility] Normal Potassium Serum 4.2 mEq/L 3.5-5.1 mE q/L [facility]: [address] [facility] Normal Chloride Level 107 mEq/L 98-107 mEq/ L [facility]: [address] [place] [address] Normal Carbon Dioxide Level 26 mEq/L 21-32 mEq/L Final [facility]: [address] [place] [address] Low Anion Gap 6 mEq/L 8-16 mEq/L Final [facility]: [address] [place] [address] Normal Calcium Level 8.7 mg/dL 8.5-10.1 mg/ dL Final [facility]: [address] [place] [address] 07/18/2020 Choriogonadotropin, Quant, Serum or Plasma Norm al HCG, Serum Quantitative 22 mIU/mL Final [facility]: [address] [place] [address] Past Encounters 08/30/2020 Severe Recurrent Major Depression with Psychotic Features Vida Franco [facility]: [address] [place] [address], Ph. 08/11/2020 Severe Recurrent Major Depression with Psychotic Features Vida Franco [facility]: [address] [place] [phone], Ph. 07/27/2020 Severe Recurrent Major Depression with Psychotic Features Vida Franco [facility]: [address] [place] [address], Ph. Social History None recorded. Vaccine List [...]
--- OUTSIDE RECORDS SUMMARY | 2020-10-03 19:36 | CCD ---
Author Author [facility] Organization [facility] Address Unknown Phone Unavailable Support Name Relationship Address Phone DANNY DE LEON Next Of Kin [address] [facility] [address] [place] [address] DANNY ZAMARRIPA Next Of Kin [address] [place] [address] Kristel Tobias Next Of Kin Unknown Unavailable JATINDER KRISTEL Next Of Kin [address] [place] [address] TRACY MASTERS Next Of Kin [address] [place] [address] CAMRON MASTERS Next Of Kin [address] [place] [address] ST Next Of Kin Unknown Unavailable NONE, PT PER Next Of Kin - -, - - - [employer] Next Of Kin [address] [place] [address] CELL LIZA HERNÁNDEZ Next Of Kin [address] [place] [address] PORTER STEEL Next Of Kin [address] [place] [address] JOSUE STEEL Next Of Kin [address] [place] [address] UE Next Of Kin Unknown Unavailable HAYES STEEL Next Of Kin [address] [place] [address] HALEY DANNY ECON [address] [facility] [address] [place] [address] Unavailable DANNY ZAMARRIPA ECON [address] [place] [address] Unavailable Jatinder Kristel ECON [address] [phone] [employer] ECON [address] [place] [address] Care Team Providers Care Piped Buttonhole Machine Operator Name Role Phone Sukumar, A Carol APARTMENT HOTEL MANAGER Unavailable Unavailable [place], A Carol APARTMENT HOTEL MANAGER Unavailable Unavailable [place], A Carol APARTMENT HOTEL MANAGER Unavailable Unavailable [place], A Carol APARTMENT HOTEL MANAGER Unavailable Unavailable [place], A Carol APARTMENT HOTEL MANAGER Unavailable Unavailable [place], A Carol APARTMENT HOTEL MANAGER Unavailable Unavailable [place], A Carol APARTMENT HOTEL MANAGER Unavailable Unavailable [place], A Carol APARTMENT HOTEL MANAGER Unavailable Unavailable [place], A Carol APARTMENT HOTEL MANAGER Unavailable Unavailable [place], A Carol APARTMENT HOTEL MANAGER Unavailable Unavailable [place], A Carol APARTMENT HOTEL MANAGER Unavailable Unavailable [place], A Carol APARTMENT HOTEL MANAGER Unavailable Unavailable [place], A Carol APARTMENT HOTEL MANAGER Unavailable Unavailable [place], A Carol APARTMENT HOTEL MANAGER Unavailable Unavailable [place], A Carol APARTMENT HOTEL MANAGER Unavailable Unavailable [place], A Carol APARTMENT HOTEL MANAGER Unavailable Unavailable [place], A Carol APARTMENT HOTEL MANAGER Unavailable Unavailable [place], A Carol APARTMENT HOTEL MANAGER Unavailable Unavailable [place], A Carol APARTMENT HOTEL MANAGER Unavailable Unavailable [place], A Carol APARTMENT HOTEL MANAGER Unavailable Unavailable [place], A Carol APARTMENT HOTEL MANAGER Unavailable Unavailable [place], A Carol APARTMENT HOTEL MANAGER Unavailable Unavailable [place], A Carol APARTMENT HOTEL MANAGER Unavailable Unavailable [place], A Carol APARTMENT HOTEL MANAGER Unavailable Unavailable [place], A Carol APARTMENT HOTEL MANAGER Unavailable Unavailable [place], A Carol APARTMENT HOTEL MANAGER Unavailable Unavailable [place], A Carol APARTMENT HOTEL MANAGER Unavailable Unavailable Vida Franco Unavailable [phone] Sukumar, A Carol APARTMENT HOTEL MANAGER Unavailable Unavailable [place], A Carol APARTMENT HOTEL MANAGER Unavailable Unavailable [place], A Carol APARTMENT HOTEL MANAGER Unavailable Unavailable [place], A Carol APARTMENT HOTEL MANAGER Unavailable Unavailable [place], A Carol APARTMENT HOTEL MANAGER Unavailable Unavailable [place], A Carol APARTMENT HOTEL MANAGER Unavailable Unavailable [place], A Carol APARTMENT HOTEL MANAGER Unavailable Unavailable [place], A Carol APARTMENT HOTEL MANAGER Unavailable Unavailable [place], A Carol APARTMENT HOTEL MANAGER Unavailable Unavailable [place], A Carol APARTMENT HOTEL MANAGER Unavailable Unavailable [place], A Carol APARTMENT HOTEL MANAGER Unavailable Unavailable [place], A Carol APARTMENT HOTEL MANAGER Unavailable Unavailable [place], A Carol APARTMENT HOTEL MANAGER Unavailable Unavailable [place], A Carol APARTMENT HOTEL MANAGER Unavailable Unavailable [place], A Carol APARTMENT HOTEL MANAGER Unavailable Unavailable [place], A Carol APARTMENT HOTEL MANAGER Unavailable Unavailable [place], A Carol APARTMENT HOTEL MANAGER Unavailable Unavailable [place], A Carol APARTMENT HOTEL MANAGER Unavailable Unavailable [place], A Carol APARTMENT HOTEL MANAGER Unavailable Unavailable Sukumar, A Carol APARTMENT HOTEL MANAGER Unavailable Unavailable Sukumar, A Carol APARTMENT HOTEL MANAGER Unavailable Unavailable Sukumar, A Carol APARTMENT HOTEL MANAGER Unavailable Unavailable Sukumar, A Carol APARTMENT HOTEL MANAGER Unavailable Unavailable Sukumar, A Carol APARTMENT HOTEL MANAGER Unavailable Unavailable Sukumar, A Carol APARTMENT HOTEL MANAGER Unavailable Unavailable Sukumar, A Carol APARTMENT HOTEL MANAGER Unavailable Unavailable Sukumar, A Carol APARTMENT HOTEL MANAGER Unavailable Unavailable Ngozi Joe Unavailable Ngozi Joe Unavailable Sukumar Carol APARTMENT HOTEL MANAGER APARTMENT HOTEL MANAGER Unavailable Unavailable Re-disclosure Warning The records that you are about to access may contain information from federally-assisted alcohol or drug abuse programs. If such information is present, then the following federally mandated warning applies: This information has been disclosed to you from records protected by federal confidentiality rules (42 CFR part 2). The federal rules prohibit you from making any further disclosure of this information unless further disclosure is expressly permitted by the written consent of the person to whom it pertains or as otherwise permitted by 42 CFR part 2. A general authorization for the release of medical or other information is NOT sufficient for this purpose. The Federal rules restrict any use of the information to criminally investigate or prosecute any alcohol or drug abuse patient.The records that you are about to access may contain highly sensitive health information, the redisclosure of which is protected by Article 27-F of the [facility] Public Health law. If you continue you may have access to information: Regarding HIV / AIDS; Provided by facilities licensed or operated by the [facility] Office of Mental Health; or Provided by the [facility] Office for People With Developmental Disabilities. If such information is present, then the following [facility] mandated warning applies: This information has been disclosed to you from confidential records which are protected by state law. State law prohibits you from making any further disclosure of this information without the specific written consent of the person to whom it pertains, or as otherwise permitted by law. Any unauthorized further disclosure in violation of state law may result in a fine or retirement sentence or both. A general authorization for the release of medical or other information is NOT sufficient authorization for further disc losure. Allergies and Adverse Reactions Type Description Substance Reaction Status Data Source(s ) Propensity to adverse reactions latex Propensity to adverse reactions Unknown [facility] Propensity to adverse reactions latex Propensity to adverse reactions Unknown Active [facility]) Propensity to adverse reactions latex Propensity to adverse reactions Unknown Active [facility]CW[facility]) Allergy to substance Allergy to substance Latex MANUEL ([facility]) Allergy to substance Allergy to substance Augmentin MANUEL ([facility]) Allergy to substance Allergy to substance Latex MANUEL ([facility]) Allergy to substance Allergy to substance Augmentin MANUEL ([facility]) Allergy to substance Allergy to substance Latex MANUEL ([facility]) Allergy to substance Allergy to substance Augmentin MANUEL ([facility]) Allergy to substance Allergy to substance Latex MANUEL ([facility]) Allergy to substance Allergy to substance Augmentin MANUEL ([facility]) Allergy to substance Allergy to substance Latex MANUEL ([facility]) Allergy to substance Allergy to substance Augmentin MANUEL ([facility]) Miscellaneous allergy LATEX LATEX [facility] Drug allergy AUGMENTIN AUGMENTIN [facility] Family History Family Member Name Family Member Gender Family Member Status Date o f Status Description Data Source(s) Unknown Unknown Problem MEDENT ([facility]) Encounters Encounter Providers Location Date Indications Data Source(s ) Unknown [address] [facility] [id number] 09/25/2020 12:00:00 AM EST eCW1 ([facility]) RUBY Cormier-: [address] [place] [address], Ph. Attender: Carol BELTRAN [facility] 09/18/2020 12:00:00 AM EST MANUEL ([facility]) Ngozi Joe LMSW: [address] [place] [address], Ph. Attender: Ngozi Joe [facility] 09/18/2020 12:00:00 AM EST MANUEL ([facility]) IVETTE CormierP-: [address] [place] [address], Ph. Attender: Carol BELTRAN [facility] 09/18/2020 12:00:00 AM EST MANUEL ([facility]) Ngozi Joe, [facility]: [address] [place] [address], Ph. Attender: Ngozi Joe [facility] 09/18/2020 12:00:00 AM EST MANUEL ([facility]) Vida Franco [facility]: [address] [place] [address], Ph. Attender: Vida Franco [facility] 08/30/2020 12:00:00 AM EST MANUEL ([facility]) Vida Franco [facility]: [address] [place] [address], Ph. Attender: Vida Franco [facility] Medical 08/30/2020 12:00:00 AM EST MANUEL ([facility]) Vida Franco, [facility]: [address] [place] [address], Ph. Attender: Vida Franco [facility] Medical 08/30/2020 12:00:00 AM EST MANUEL ([facility]) (WC ESTOB) [facility]Center Est OB [address] [place] [address] 08/25/2020 12:00:00 AM EST eCW1 ([facility]) Vida Franco [facility]: [address] [place] [address], Ph. Attender: Vida Franco [facility] Medical 08/11/2020 12:00:00 AM EST MANUEL ([facility]) [facility] [address] [place] [address], Ph. Attender: Vida Harrisonshelly [facility] 08/11/2020 12:00:00 AM EST MANUEL ([facility]) Vida Franco, [facility]: [address] [place] [address], Ph. Attender: Vida Harrisonshelly [facility] 08/11/2020 12:00:00 AM EST MANUEL ([facility]) Vida Franco [facility]: [address] [place] [address], Ph. Attender: Vida Harrisonshelly [facility] 08/11/2020 12:00:00 AM EST MANUEL ([facility]) ([facility]) [facility] OB Visit [address] [place] [address] 08/04/2020 12:00:00 AM EST eCW1 ([facility]) [facility] [address] [place] [address], Ph. Attender: Vida Harrisonshelly [facility] 07/27/2020 12:00:00 AM EST MANUEL ([facility]) Vida Franco [facility]: [address] [place] [address], Ph. Attender: Vida Harrisonshelly [facility] 07/27/2020 12:00:00 AM EST MANUEL ([facility]) Vida Franco [facility]: [address] [place] [address], Ph. Attender: Vida Huntershelly [facility] 07/27/2020 12:00:00 AM EST MANUEL ([facility]) Vidasima Franco, [facility]: [address] [place] [address], Ph. Attender: Vida Franco [facility] Medical 07/27/2020 12:00:00 AM EST MANUEL ([facility]) Vida Franco, [facility]: [address] [place] [address], Ph. Attender: Viad Franco [facility] Medical 07/27/2020 12:00:00 AM EST MANUEL ([facility]) Outpatient Attender: Carol BERNABE 07/19/2020 09:0 5:[address] [facility] Outpatient Attender: RUBY BERNABE 07/14/2020 11:39:[address] [facility] Outpatient Attender: RUBY BERNABE 07/11/2020 08:01:[address] [facility] Outpatient Attender: RUBY BERNABE 07/10/2020 02:26:[address] [facility] Outpatient [address] [facility], [facility] [address] 06/28/2020 12:00:00 AM EDT eC1 ([facility]) Outpatient Attender: RUBY BERNABE 06/27/2020 01:00:[address] [facility] Outpatient Attender: RUBY BERNABE 06/21/2020 08:01:[address] [facility] Outpatient Attender: RUBY BERNABE 06/20/2020 01:31:[address] [facility] Outpatient Attender: RUBY BERNABE 06/12/2020 08:01:[address] [facility] Outpatient Attender: RUBY BERNABE 06/10/2020 09:33:[address] [facility] Outpatient Attender: RUBY BERNABE 06/10/2020 09:32:[address] [facility] Outpatient Attender: RUBY BERNABE 06/06/2020 11:33:[address] [facility] Outpatient Attender: RUBY BERNABE 06/01/2020 05:22:02 P M EDT [facility] Outpatient Attender: Carol STEELEP FP 06/01/2020 05:2 2:01 PM EDT [facility] Outpatient Attender: Carol STEELEP FP 05/31/2020 03:4 3:01 PM EDT [facility] Outpatient Attender: RUBY STEELEP FP 05/31/2020 03:28:01 P M EDT [facility] Outpatient Attender: RUBY STEELEP FP 05/31/2020 02:17:00 P M EDT [facility] Outpatient Attender: Carol STEELEP FP 05/30/2020 02:3 8:00 PM EDT [facility] Outpatient Attender: Carol STEELEP FP 05/25/2020 01:5 4:03 PM EDT [facility] Outpatient Attender: RUBY STEELEP FP 05/24/2020 11:41:00 A M EDT [facility] Outpatient Attender: RUBY STEELEP FP 04/27/2020 03:56:00 P M EDT [facility] Outpatient Attender: RUBY STEELEP FP 04/21/2020 08:01:13 P M EDT [facility] Outpatient Attender: RUBY STEELEP FP 04/18/2020 08:36:00 A M EDT [facility] Outpatient Attender: RUBY STEELEP FP 04/11/2020 08:02:01 P M EDT [facility] Outpatient Attender: RUBY STEELEP FP 04/11/2020 04:40:01 P M EDT [facility] Outpatient Attender: RUBY STEELEP FP 04/10/2020 02:20:02 A M EDT [facility] Outpatient Attender: Carol STEELEP FP 04/10/2020 02:2 0:01 AM EDT [facility] Outpatient Attender: RUBY BELTRAN FP 04/07/2020 03:21:00 P M EDT [facility] Outpatient Attender: RUBY STEELEP FP 04/05/2020 05:36:02 P M EDT [facility] Outpatient Attender: RUBY STEELEP FP 04/04/2020 03:16:01 P M EDT [facility] Outpatient Attender: RUBY STEELEP FP 04/03/2020 08:01:02 P M EDT [facility] Outpatient Attender: RUBY STEELEP FP 03/23/2020 09:49:01 A M EDT [facility] Outpatient Attender: RUBY STEELEP FP 03/21/2020 08:02:04 P M EDT [facility] Outpatient Attender: Carol STEELEP FP 03/14/2020 09:4 5:04 AM EDT [facility] Outpatient Attender: RUBY Patino APARTMENT HOTEL MANAGER FP 03/09/2020 10:26:00 A M EDT [facility] Outpatient Attender: Carol STEELEP FP 03/08/2020 03:4 8:02 PM EDT [facility]patient Attender: RUBY STEELEP FP 03/08/2020 03:48:00 P M EDT [facility]patient Attender: Carol STEELEP FP 03/07/2020 11:5 2:01 AM EDT [facility]patient Attender: Carol STEELEP FP 03/07/2020 10:4 7:01 AM EDT [facility]patient Attender: RUBY Patino APARTMENT HOTEL MANAGER FP 03/07/2020 10:47:01 A M EDT [facility] Outpatient Attender: RUBY STEELEP FP 03/06/2020 08:01:01 P M EDT [facility] Outpatient Attender: Carol STEELEP FP 03/06/2020 04:3 0:14 PM EDT [facility]patient Attender: RUBY STEELEP FP 03/06/2020 11:22:03 A M EDT [facility] Outpatient Attender: Carol STEELEP FP 03/06/2020 11:2 2:03 AM EDT [facility] Outpatient Attender: RUBY STEELEP FP 03/06/2020 11:02:01 A M EDT [facility] Outpatient Attender: RUBY STEELEP FP 03/06/2020 08:39:00 A M EDT [facility] Outpatient Attender: RUBY STEELEP FP 02/29/2020 03:52:01 P M EDT [facility] Outpatient Attender: Carol STEELEP FP 02/28/2020 01:4 4:01 PM EDT [facility]patient Attender: RUBY STEELEP FP 02/11/2020 07:43:01 A M EDT [facility] Outpatient Attender: RUBY BELTRAN FP 02/10/2020 11:25:00 A M EDT [facility]patient Attender: RUBY STEELEP FP 02/10/2020 08:06:02 A M EDT [facility]patient Attender: RUBY STEELEP FP 02/09/2020 06:40:00 P M EDT [facility]patient Attender: Carol STEELEP FP 02/09/2020 06:3 8:59 PM EDT [facility]patient Attender: RUBY BELTRAN FP 02/09/2020 02:22:00 P M EDT [facility]patient Attender: Carol STEELEP FP 02/09/2020 10:3 3:01 AM EDT [facility]patient Attender: RUBY STEELEP FP 02/07/2020 10:01:01 A M EDT [facility] Outpatient Attender: RUBY STEELEP FP 01/31/2020 08:01:03 P M EDT [facility]patient Attender: Carol STEELEP FP 01/31/2020 04:0 5:02 PM EDT [facility] Outpatient Attender: RUBY BELTRAN FP 01/28/2020 03:30:02 P M EDT [facility]patient Attender: Carol STEELEP FP 01/27/2020 04:0 3:01 PM EDT [facility] 01/25/2020 05:23:00 AM EDT [facility] Outpatient Attender: RUBY STEELEP FP 01/24/2020 03:19:00 P M EDT [facility] Attender: Carol STEELEP FP 01/21/2020 11:2 5:01 PM EDT [facility]patient Attender: RUBY STEELEP FP 01/18/2020 08:01:02 P M EDT [facility]patient Attender: RUBY STEELEP FP 01/17/2020 04:46:00 P M EDT [facility] Outpatient Attender: RUBY STEELEP FP 01/17/2020 02:07:00 P M EDT [facility] Outpatient Attender: Carol BELTRAN FP 01/14/2020 02:5 7:00 PM EDT [facility] Outpatient Attender: Carol BELTRAN FP 01/14/2020 02:1 0:00 PM EDT [facility] Outpatient Attender: Carol Sukumar BELTRAN FP 01/14/2020 12:1 3:59 PM EDT [facility] 01/14/2020 05:53:00 AM EDT [facility] Outpatient Attender: RUBY STEELEP FP 01/10/2020 05:30:00 P M EDT [facility] Outpatient Attender: Carol BELTRAN FP 01/10/2020 11:1 2:01 AM EDT [facility] Outpatient Attender: RUBY BELTRAN FP 01/09/2020 12:06:03 A M EDT [facility]patient Attender: Carol BELTRAN FP 01/09/2020 12:0 6:01 AM EDT [facility] Outpatient Attender: RUBY BELTRAN FP 01/05/2020 08:01:01 P M EDT [facility] Outpatient Attender: RUBY STEELEP FP 01/05/2020 10:33:00 A M EDT [facility]patient Attender: RUBY BELTRAN FP 01/04/2020 05:38:01 P M EDT [facility] Outpatient Attender: RUBY BELTRAN FP 01/04/2020 04:53:00 P M EDT [facility]patient Attender: RUBY BELTRAN FP 01/04/2020 02:32:00 P M EDT [facility]patient Attender: RUBY BELTRAN FP 01/03/2020 08:20:01 A M EDT [facility] Outpatient Attender: Carol BELTRAN FP 12/30/2019 11:0 1:01 AM EDT [facility]patient Attender: RUBY BELTRAN FP 12/28/2019 03:56:00 P M EDT [facility] Outpatient Attender: RUBY BELTRAN FP 12/20/2019 12:43:01 P M EDT [facility]patient Attender: RUBY BELTRAN FP 12/16/2019 05:18:00 P M EDT [facility] Outpatient Attender: RUBY STEELEP FP 12/15/2019 08:01:05 P M EDT [facility] Outpatient Attender: RUBY STEELEP FP 12/15/2019 12:55:05 P M EDT [facility] Outpatient Attender: RUBY STEELEP FP 12/15/2019 12:16:00 P M EDT [facility] Outpatient Attender: Carol STEELEP FP 12/15/2019 10:2 0:01 AM EDT [facility] Outpatient Attender: RUBY STEELEP FP 12/14/2019 10:08:01 A M EDT [facility] Outpatient Attender: Carol BELTRAN FP 12/14/2019 10:0 7:02 AM EDT [facility] Outpatient Attender: RUBY STEELEP FP 12/13/2019 02:52:00 P M EDT [facility] Outpatient Attender: Carol STEELEP FP 12/13/2019 02:4 9:01 PM EDT [facility] Outpatient Attender: RUBY STEELEP FP 12/13/2019 09:44:00 A M EDT [facility] Outpatient Attender: RUBY STEELEP FP 12/03/2019 02:20:00 P M EDT [facility] Outpatient Attender: Carol STEELEP FP 12/03/2019 09:4 1:00 AM EDT [facility]patient Attender: Carol STEELEP FP 11/18/2019 10:0 5:00 PM EST [facility] Outpatient Attender: RUBY STEELEP FP 11/17/2019 12:00:36 A M EST [facility] Outpatient Attender: RUBY STEELEP FP 11/16/2019 02:12:02 P M [facility] Outpatient Attender: RUBY STEELEP FP 11/16/2019 01:50:01 P M [facility] Outpatient Attender: RUBY STEELEP FP 11/16/2019 01:49:01 P M EST [facility] Outpatient Attender: RUBY STEELEP FP 11/16/2019 01:47:01 P M EST [facility] Outpatient Attender: RUBY STEELEP FP 11/16/2019 12:26:02 P M [facility] Outpatient Attender: RUBY Patino [facility] 11/16/2019 11:11:00 A M [facility] Outpatient Attender: [facility]BY [facility]16/2019 11:10:01 A M [facility] Out[facility] Attender: RUBY [facility] 11/16/2019 11:09:00 A M [facility] Outpatient Attender: Carol [facility] 11/10/2019 03:0 9:02 PM [facility] Out[facility] Attender: RUBY Patino [facility] 10/26/2019 03:09:00 P M [facility] 10/19/2019 01:34:00 PM [facility] Medications Medication Brand Name Start Date Product Form Dose Route Admi nistrative Instructions Pharmacy Instructions Status Indications Reaction Description Data Source(s) 10 mg 08/26/2020 12:00:00 AM EST tablet 60 TAKE 1 TABLET BY MOUTH BEFORE MEALS TWICE A DAY TAKE 1 TABLET BY MOUTH BEFORE MEALS TWICE A DAY SOLD: 08/28/2020 [facility] Metoclopramide 10 MG Oral Tablet [Reglan] Reglan 10 MG Yelitza n 10 MG 08/25/2020 12:00:00 AM EST 1.0 {tablet_before_meals} active Reglan 10 MG [facility] Metoclopramide 10 MG Oral Tablet [Reglan] Reglan 10 MG Yelitza n 10 MG 08/25/2020 12:00:00 AM EST 1.0 {tablet_before_meals} active Reglan 10 MG [facility]) 50 mg 01/18/2020 12:00:00 AM EDT tablet 60 TAKE ONE TABLET BY MOUTH THREE TIMES A DAY NEEDED TAKE ONE TABLET BY MOUTH THREE TIMES A DAY NEEDED S OLD: 01/19/2020 [facility] 500 mg 12/30/2019 12:00:00 AM EDT tablet 60 TAKE 1 TABLET BY MOUTH TWO TIMES A DAY TAKE 1 TABLET BY MOUTH TWO TIMES A DAY SOLD: 01/18/2020 [facility] 50 mcg/actuation 11/21/2019 12:00:00 AM EST spray,suspension 16 USE 1 SPRAY IN EACH NOSTRIL TWO TIMES A DAY FOR 7 DAYS USE 1 SPRAY IN EACH NOSTRIL TWO TIMES A DAY FOR 7 DAYS SOLD: 11/21/2019 [facility] 5-325 mg 09/23/2019 12:00:00 AM EST tablet 16 TAKE 1 TABLET BY MOUTH EVERY 4-6 HOURS NEEDED FOR PAIN MAXIMUM DAILY DOSE = 4 TAKE 1 TABLET BY MOUTH EVERY 4-6 HOURS NEEDED FOR PAIN MAXIMUM DAILY DOSE = 4 SOLD: 09/23/2019 [facility] Insurance Providers Payer name Policy type / Coverage type Policy ID Covered libertarian ID Covered libertarian's relationship to vera Policy Vera Plan Information [facility] COMM[facility]AN [facility] [id number] SP [id number] [facility] COMM[facility]ITY [facility]AN [facility] [id number] SP [id number] [facility] O [id number] S [id number] [facility] [id number] SP [id number] Managed Care - [facility] Community Plan P [id number] S [id number] Medicaid S [id number] S [id number] MEDICAID M [id number] S [id number] D Managed Care [facility] P [id number] S [id number] [place] [id number] SP [id number] Medicaid P [id number] S [id number] MEDICAID [id number] SP [id number] Medicaid P [id number] S [id number] Managed Care - [facility] Community Plan S [id number] S [id number] Managed Care - [facility] Community Plan P [id number] S [id number] Managed Care - [facility] Community Plan P UNAVAILABLE S UNAVAILABLE Medicaid S UNAVAILABLE S UNAVAILA BLE ANSI-Medicaid [id number] ANSI-Not a Secondary Insurance [id number] [facility] Medicaid Health Maintenance Organization (HMO) [id number] Self [id number] [facility] [employer] [id number] FA2 [id number] [facility]NA [facility] O [id number] S [id number] [facility] Health Maintenance Organization (HMO) [id number] Family Dependent [id number] [facility] (2018) Health Maintenance Organization (HMO) [id number] Family Dependent [id number] [facility] HUMAN [id number] FA2 [id number] U [id number] Child [id number] [facility] HUMAN [id number] FA2 [id number] MEDICAID [id number] SP [id number] [facility] [id number] FA2 [id number] BCBS [facility] Other 0 F amily Dependent Camron Milvia 0 [facility] Health Maintenance Organization (HMO) [id number] Family Dependent [id number] [facility] (2018) Health Maintenance Organization (HMO) [id number] Family Dependent [id number] U [id number] Child [id number] SELF PAY ONLY UNAVAILABLE SP UNAV AILABLE Health [facility] Health Maintenance Organization (O) Family Dependent N REGIONAL CLAIMS [place] -O/P [id number] [facility] Self [facility] Problems, Conditions, and Diagnoses Code Display Name Description Problem Type Effective Dates Data Source(s) E66.9 Obesity Obesity Problem 08/04/2020 12:00:00 AM ES T [facility] G40.909 Seizure disorder Seizure disorder Problem 08/04/2020 12 :00:00 AM EST [facility]) O99.211 Obesity complicating , first tr imester Obesity complicating in first trimester Problem 08/04/2020 12:00:00 AM EST [facility]) Z34.80 care Supervision of other normal P roblem 08/04/2020 12:00:00 AM EST [facility]CW1 [facility]) Z86.32 History of gestational diabetes mellitus Personal history of gestational diabetes Problem 08/04/2020 12:00:00 AM EST eCW1 ([facility]) R22.1 Localized swelling, mass and lump, neck Mass of neck 05/31/2020 03:26:[address] [facility] [id number] Acute pharyngitis, unspecified Acute pharyngitis, unsp ecified 05/31/2020 03:26:[address] [facility] R73.03 Prediabetes Prediabetes 04/10/2020 02:19:[address] [facility] V65.8 Person consulting for explanation of exa mination or test findings Person consulting for explanation of examination or test findings 04/05/2020 05:35:[address] [facility] [id number] Patient asked to attend Patient Asked to Attend Proble 04/05/2020 12:00:00 AM EDT [facility] ([facility]) [id number] Prediabetes Prediabetes Problem 04/05/2020 12:00:00 AM EDT [facility] ([facility]) [id number] Patient asked to attend Patient Asked to Attend Proble 04/05/2020 12:00:00 AM EDT [facility] ([facility]) [id number] Prediabetes Prediabetes Problem 04/05/2020 12:00:00 AM EDT [facility] ([facility]) [id number] Patient asked to attend Patient Asked to Attend Proble 04/05/2020 12:00:00 AM EDT [facility] ([facility]) [id number] Prediabetes Prediabetes Problem 04/05/2020 12:00:00 AM EDT [facility] ([facility]) [id number] Patient asked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 ([facility]) Body weight 3328 [oz_av] 3328 [oz_av] MANUEL ([facility]) Systolic blood pressure 123 mm[Hg] 123 mm[Hg] [facility] Body height 66 [in_i] 66 [in_i] MANUEL ([facility]) Diastolic blood pressure 73 mm[Hg] 73 mm[Hg] MANUEL ([facility]) Body weight 3328 [oz_av] 3328 [oz_av] MANUEL ([facility]) Systolic blood pressure 123 mm[Hg] 123 mm[Hg] [facility] Body height 66 [in_i] 66 [in_i] MANUEL ([facility]) Diastolic blood pressure 73 mm[Hg] 73 mm[Hg] MANUEL ([facility]) Body weight 3328 [oz_av] 3328 [oz_av] MANUEL ([facility]) Systolic blood pressure 123 mm[Hg] 123 mm[Hg] [facility] Body height 66 [in_i] 66 [in_i] MANUEL ([facility]) Diastolic blood pressure 73 mm[Hg] 73 mm[Hg] MANUEL ([facility]) Body weight 3328 [oz_av] 3328 [oz_av] MANUEL ([facility]) Systolic blood pressure 123 mm[Hg] 123 mm[Hg] [facility] Body height 66 [in_i] 66 [in_i] MANUEL ([facility]) Diastolic blood pressure 73 mm[Hg] 73 mm[Hg] MANUEL ([facility]) Body weight 3510.08 [oz_av] 3510.08 [oz_av] ATH SONDRA ([facility]) Systolic blood pressure 125 mm[Hg] 125 mm[Hg] A [facility] ([facility]) Body height 66 [in_i] 66 [in_i] MANUEL ([facility]) Diastolic blood pressure 80 mm[Hg] 80 mm[Hg] MANUEL ([facility]) Body weight 3510.08 [oz_av] 3510.08 [oz_av] A[facility] SONDRA ([facility]) Systolic blood pressure 125 mm[Hg] 125 mm[Hg] [facility] Body height 66 [in_i] 66 [in_i] MANUEL ([facility]) Diastolic blood pressure 80 mm[Hg] 80 mm[Hg] MANUEL ([facility]) Body weight 3510.08 [oz_av] 3510.08 [oz_av] ATH SONDRA ([facility]) Systolic blood pressure 125 mm[Hg] 125 mm[Hg] [facility] Body height 66 [in_i] 66 [in_i] MANUEL ([facility]) Diastolic blood pressure 80 mm[Hg] 80 mm[Hg] MANUEL ([facility]) Body weight 3510.08 [oz_av] 3510.08 [oz_av] ATH SONDRA ([facility]) Systolic blood pressure 125 mm[Hg] 125 mm[Hg] A ROSAS ([facility]) Body height 66 [in_i] 66 [in_i] MANUEL ([facility]) Diastolic blood pressure 80 mm[Hg] 80 mm[Hg] MANUEL ([facility]) Body weight 3510.08 [oz_av] 3510.08 [oz_av] ATH SONDRA ([facility]) Systolic blood pressure 125 mm[Hg] 125 mm[Hg] A ROSAS ([facility]) Body height 66 [in_i] 66 [in_i] MANUEL ([facility]) Diastolic blood pressure 80 mm[Hg] 80 mm[Hg] MANUEL ([facility]) Patient Treatment Plan of Care Planned Activity Planned Date Details Description Data Source (s) Metoclopramide 10 MG Oral Tablet [Reglan] 08/25/2020 12:00:00 AM [facility]ENNA Krishnan [email or web address] Metoclopramide 10 MG Oral Tablet [Reglan] 08/25/2020 12:00:00 AM BRENNA Krishnan [email or web address])
--- OUTSIDE RECORDS SUMMARY | 2020-10-03 19:36 | CCD ---
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 [id number] ALLERGIES Allergen (clinical drug ingredient) Drug/Non Drug Allergy do cumented on EMR Reaction Allergy Type Onset Date Status penicllin Anaphylaxis Non Drug Allergy Active augmentin Anaphylaxis Non Drug Allergy Active ENCOUNTERS from 2000 to 2020-07-10 Encounter Location Date Provider Diagnosis [facility] Dermatology [facility] [place] [address] 0 7 Jun, 2020 Sridevi Gonzalez 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 IMMUNIZATIONS No Information SOCIAL HISTORY Tobacco Use: Social History Observation Description Date Details (start date - stop date) Current Smoker Sex Assigned At : Social History Observation Description Sex Assigned At Unknown Education: Question Answer Notes Level of Education: Not finished High School Language: Question Answer Notes Languages spoken: Jordanian Yazidi: Question Answer Notes Yazidi 33 None Sexual Hx: Question Answer Notes [...] Answer Notes Are you a: current smoker Patient counseled on the dangers of tobacco use and urged to quit: 03/15/2019 How many cigarettes a day do you smoke? 5 or less Are you interested in quitting? Ready to quit Counseled the patient on tobacco use, cessation provided REASON FOR REFERRAL No Information VITAL SIGNS Weight 198.4 lbs Jun, Height 5'6" in Jun, BMI 32.02 kg/m2 Jun, Blood pressure systolic 118 mm Hg Jun, Blood pressure diastolic 72 mm Hg Jun, MEDICATIONS No Known Medications PROCEDURES No Information RESULTS No Results REASON FOR VISIT ED&C MEDICAL (GENERAL) HISTORY Type Description Date Surgical History bilateral octoplasty 2009 Goals Section No Information Health Concerns No Information MEDICAL EQUIPMENT No Information MENTAL STATUS No Information FUNCTIONAL STATUS No Information ASSESSMENTS Encounter Date Diagnosis Notes Jun, Squamous cell carcinoma in s itu of skin of scapular region (ICD-10 - D04.5) PLAN OF TREATMENT Treatment Notes Assessment Notes Clinical Notes 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 [place] protocol requirements were met per [facility] standard protocol. The patient''s identification was checked (Name and ). Procedure and site(s), side (if applicable) matches the consent form. The area was prepped with alcohol. Local anesthesia was administered via a 30G needle with approximately 2mL of 1% lidocaine with epinephrine. Lesion was then cur ettage and electrodessicated x3 in standard fashion. Good margins and dermal toughness appreciated. No specimen was sent to pathology. Sterile dressing applied. Estimated blood loss was minimal. Wound care discussed. Next Appt Details 3 Months Reason:Recheck EDC site Provider Name:Sridevi Gonzalez, 01:00:00 PM, [address] [facility], [place], [place], [id number], [facility] Providers Payer Name Payer Address Payer Phone Insured Name Patient Relati onship to Insured Coverage Start Date Coverage End Date [facility] [address] [facility] [phone] PORTER CHOWDHURY self
[2020-10-03 20:36] LABS: BASO % 0.2 % (0.0-1.0); EOS # 0.2 10^3/uL (0.0-0.5); EOS % 1.4 % (0.0-3.0); HEMATOCRIT 35.7 % (36.0-47.0); LYMPH # 2.8 10^3/uL (1.5-5.0); LYMPH % 26.9 % (24.0-44.0); MEAN CORPUSCULAR HEMOGLOBIN 30.9 pg (27.0-33.0); MEAN CORPUSCULAR HGB CONC 33.6 g/dl (32.0-36.5); MONO # 0.4 10^3/uL (0.0-0.8); MONO % 3.9 % (0.0-5.0); PLATELET COUNT, AUTOMATED 238 10^3/uL (150-450); RED BLOOD COUNT 3.88 10^6/uL (4.00-5.40); WHITE BLOOD COUNT 10.5 10^3/uL (4.0-10.0)
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
[2020-10-03 21:06] LABS: BLOOD UREA NITROGEN 6 MG/DL (7-18); CALCIUM LEVEL 8.1 MG/DL (8.5-10.1); CARBON DIOXIDE LEVEL 25 MEQ/L (21-32); CHLORIDE LEVEL 109 MEQ/L (98-107); CREATININE FOR GFR 0.57 MG/DL (0.55-1.30); GLUCOSE, FASTING 107 MG/DL (70-100); POTASSIUM SERUM 3.6 MEQ/L (3.5-5.1); SODIUM LEVEL 141 MEQ/L (136-145)
[2020-10-03] MEDS ORDERED: MACR100C43 PO (21:41)
[2020-10-03] MEDS ORDERED: VENTAER INH (21:41)
[2020-10-03] MEDS ORDERED: NITROFURANTOIN (MACROBID) 100 MG CAP PO ONE (21:45)
[2020-10-03 22:00] VITALS: BP 109/57
== END 2020-10-03 22:12 | disposition home or self-care (01) ==
LOC: M ED 18:26 → EDBD 18:26 → M ED 22:12
DX: O9A.212 Injury, poisoning and certain other consequences of external causes complicating pregnancy, second trimester (principal); Y04.0XXA Assault by unarmed brawl or fight, initial encounter; Y92.9 Unspecified place or not applicable; Y93.9 Activity, unspecified; Y99.9 Unspecified external cause status; O23.42 Unspecified infection of urinary tract in pregnancy, second trimester; O99.352 Diseases of the nervous system complicating pregnancy, second trimester; O24.419 Gestational diabetes mellitus in pregnancy, unspecified control; O99.332 Smoking (tobacco) complicating pregnancy, second trimester; Z3A.15 15 weeks gestation of pregnancy; Z91.040 Latex allergy status; Z88.0 Allergy status to penicillin

== ENCOUNTER → 2020-11-07 | Outpatient (CLI) | payer OTHER ==
[~2020-11-07] MED LIST changes: +MACR100C43 PO; +VENTAER INH
--- NOTE | 2020-11-08 03:10 | REP ---
INDICATION: ANATOMY COMPARISON: None. TECHNIQUE: Transabdominal obstetrical ultrasound with color Doppler evaluation. FINDINGS: Examination demonstrates a single live intrauterine in cephalic presentation. motion is identified by technologist. Placenta is noted anterior and grade 0 without evidence for placenta previa or abruption. Amniotic fluid volume is normal. Cervix measures 4.1 cm in length and appears closed.. Gestational age by LMP 20 weeks 1 day with CORNELIUS 03/26/2021. Gestational age by current measurements 20 weeks 1 day with CORNELIUS 03/26/2021. FHR equals 130 beats per minute. BPD: 4.8 cm 20 weeks 3 days HC: 17.6 cm 20 weeks 1 day AC: 14.8 cm 20 weeks 1 day FL: 3.1 cm 19 weeks 5 days HL: 3.1 cm 20 weeks 2 days HC/AC: 1.19 Estimated weight 321 grams (33rdpercentile). Anatomical assessment demonstrates normal structures including cranium, cavum, cerebellum/posterior fossa, facial profile, lungs, four-chamber heart/ventricular outflow tracts, diaphragm, stomach, cord insertion/three-vessel cord, kidneys/bladder, spine, and extremities. 6 mm choroid plexus cyst noted. Limited evaluation of the nose/lips. IMPRESSION: Single live intrauterine in cephalic presentation. Appropriate interval growth noted. Anatomical limitations as described above may warrant follow-up examination. <Electronically signed by Chandra Orr > 11/08/20 2325
== END ==
LOC: M WHC 14:22
PROVIDERS: ATTEND Advanced Practice Midwife
DX: O99.352 Diseases of the nervous system complicating pregnancy, second trimester (principal)

== ENCOUNTER → 2020-11-22 | Outpatient (REF) | payer OTHER | LOC: M PLALAB 01:36 | PROVIDERS: ATTEND Obstetrics & Gynecology | DX: Z53.9 Procedure and treatment not carried out, unspecified reason (principal); Z3A.22 22 weeks gestation of pregnancy ==

== ENCOUNTER 2020-12-12 23:34 | Outpatient (CLI) | payer OTHER ==
[2020-12-13] MEDS ORDERED: ACETAMINOPHEN 500 MG TAB PO ONE (00:05)
[2020-12-13 00:32] LABS: AMORPHOUS SEDIMENT SMALL (NEGATIVE); APPEARANCE, URINE CLOUDY (CLEAR); BACTERIA, URINE AUTO 1+ (NEGATIVE); BILIRUBIN, URINE AUTO NEGATIVE (NEGATIVE); BLOOD, URINE BLOOD NEGATIVE (NEGATIVE); COLOR, URINE YELLOW (YELLOW); GLUCOSE, URINE (UA) AUTO 1+ mg/dL (NEGATIVE); KETONE, URINE AUTO NEGATIVE (NEGATIVE); LEUKOCYTE ESTERASE, URINE AUTO NEGATIVE (NEGATIVE); MUCUS, URINE SMALL (NEGATIVE); NITRITE, URINE AUTO POSITIVE (NEGATIVE); PROTEIN, URINE AUTO NEGATIVE (NEGATIVE); RBC, URINE AUTO 1 /HPF (0-3); SPECIFIC GRAVITY URINE AUTO 1.018 (1.002-1.035); SQUAMOUS EPITHELIAL CELL UR AU 5 /HPF (0-6); UROBILINOGEN, URINE AUTO 0.2 mg/dL (0.0-2.0); WBC, URINE AUTO 5 /HPF (0-3)
--- NOTE | 2020-12-13 04:40 | IPNPDOC ---
Text Note Date of Service The patient was seen on 12/13/20. NOTE L&D Triage Note: S: 20yo at 25w3d presents with c/o lower back pain. Denies F/C/N/V, ctx, LOF or ctx. O: vss, AF Reassuring tracing, appropriate for dates Gen: well appearing back: negative CVA tenderness abd: gravid, nttp UA: +1 bacteria, otherwise neg A/P: 20yo at 25w3d with lower back pain, resolved with 1000mg Tylenol. reassuring status -home with PTL -maternal belt to aid with lower back -f/u at next OB appt. MD SUMANTH Mccracken KENYA MD. Dec 13, 2020 04:40
== END 2020-12-13 04:40 | disposition home or self-care (01) ==
LOC: M LDO 23:34
PROVIDERS: ATTEND Obstetrics & Gynecology
DX: O26.892 Other specified pregnancy related conditions, second trimester (principal); M54.5 Low back pain; Z3A.25 25 weeks gestation of pregnancy

== ENCOUNTER → 2020-12-29 | Outpatient (CLI) | payer OTHER ==
--- NOTE | 2020-12-29 14:53 | REP ---
INDICATION: F/U ANATOMY. COMPARISON: 11/07/2020. TECHNIQUE: Real-time sonographic evaluation of the gravid uterus performed. FINDINGS: Estimated gestational age is27 weeks 4 days, EDC 03/26/2021. Today's measurements indicate appropriate growth. Closed cervical length is measured at 3.6 cm. Biometry chart: BPD: 72 mm, 28 weeks 6 days, 76th percentile. HC: 257 mm, 27 weeks 6 days, 57th percentile AC: 227 mm, 27 weeks 1 days, 41st percentile Femur length: 51 mm, 27 weeks 3 days, 45th percentile HC to AC ratio: 1.13, normal range 1.00-1.18. Estimated weight: 1067g, 31st percentile. The facial structures are visualized and are grossly unremarkable. IMPRESSION: Viable single intrauterine gestation as above. <Electronically signed by Warner Phillip > 12/29/20 [id number]
== END ==
LOC: M WHC 13:23
PROVIDERS: ATTEND Obstetrics & Gynecology
DX: Z36.2 Encounter for other antenatal screening follow-up (principal); Z3A.27 27 weeks gestation of pregnancy

== ENCOUNTER → 2021-01-11 | Outpatient (REF) | payer OTHER ==
[2021-01-11 18:09] LABS: HEMATOCRIT 36.4 % (36.0-47.0); MEAN CORPUSCULAR HEMOGLOBIN 31.5 pg (27.0-33.0); MEAN CORPUSCULAR VOLUME 95.5 fl (80.0-96.0); PLATELET COUNT, AUTOMATED 326 10^3/uL (150-450); RED BLOOD COUNT 3.81 10^6/uL (4.00-5.40); WHITE BLOOD COUNT 12.3 10^3/uL (4.0-10.0)
[2021-01-11 19:09] LABS: HEMOGLOBIN A1c 5.4 %
== END ==
LOC: M PLALAB 17:12
PROVIDERS: ATTEND Advanced Practice Midwife
DX: Z86.32 Personal history of gestational diabetes (principal)

== ENCOUNTER → 2021-02-07 | Outpatient (REF) | payer OTHER | LOC: M SFHCWAGY 16:43 | PROVIDERS: ATTEND Advanced Practice Midwife | DX: Z36.89 Encounter for other specified antenatal screening (principal); Z3A.33 33 weeks gestation of pregnancy ==

== ENCOUNTER → 2021-02-07 | Outpatient (CLI) | payer OTHER ==
--- NOTE | 2021-02-07 14:44 | REP ---
INDICATION: GROWTH CORNELIUS 03/26/2021. CORNELIUS March 26, 2021. Vaginal bleeding. COMPARISON: Comparison obstetric sonography December 29, 2020.. TECHNIQUE: Transabdominal obstetric sonography. FINDINGS: Scanning through the gravid uterus demonstrates a viable single intrauterine gestation in cephalic lie. motion is observed and heart rate is recorded at 133 beats per minute. A anterior placenta is seen, grade 2, without evidence of placenta previa. Closed cervical length is measured at 4.8 cm transabdominally. No extrauterine abnormality is observed. Amniotic fluid is subjectively normal. JAG is normal at 23.0 cm (8.2-24.6 cm).. anatomic survey is not performed with this exam.. Biometry chart: BPD 9.2 cm, 37 weeks 2 days Head circumference 32.5 cm, 36 weeks 5 days Abdominal circumference 31.7 cm, 35 weeks 4 days Femur length 6.8 cm, 35 weeks 1 day Humeral length 6.1 cm, 35 weeks 2 days HC AC ratio normal 1.02 Cephalic index normal 0.81 Estimated weight 2766 g, 6 lb 1 oz greater than 97th percentile for 33 weeks 2 days. SD ratio in the umbilical cord artery by Doppler normal 2.02 IMPRESSION: Viable single intrauterine gestation at 36 weeks 0 days by today's composite sonographic criteria. CORNELIUS by today's sonography March 07, 2021. No complication identified. Expected gestational age estimate based on prior sonography March 26, 2021 33 weeks 2 days. Estimated weight greater than 97th percentile. <Electronically signed by Reji Puckett > 02/07/21 [id number]
== END ==
LOC: M WHC 13:46
PROVIDERS: ATTEND Advanced Practice Midwife
DX: Z36.2 Encounter for other antenatal screening follow-up (principal); Z3A.36 36 weeks gestation of pregnancy

== ENCOUNTER → 2021-03-07 | Outpatient (CLI) | payer OTHER ==
--- NOTE | 2021-03-07 19:06 | REP ---
INDICATION: PREG DIABETIC NON REACITVE NST BPP. COMPARISON: None. TECHNIQUE: Transabdominal FINDINGS: Limited OB ultrasound shows a single living intrauterine gestation in the cephalic presentation. The placenta is anterior and not low lying. Doppler interrogation of the heart shows a heart rate of 142 beats per minute. The subjective amniotic fluid volume is within normal limits. The cervix measures 3.2 cm in length and is closed. The calculated amniotic fluid index is 20.9 within expected range 7.4 to 24.3. Doppler interrogation of the umbilical artery shows an AB ratio of 2.56. This is within the normal range. biophysical profile score is 2 for breathing, 2 for movement, 2 for tone, and 2 for amniotic fluid volume giving a sum total of 8/8. IMPRESSION: Limited OB ultrasound as described above. <Electronically signed by Yandel Pike > 03/07/21 [id number]
== END ==
LOC: M RAD 16:52
PROVIDERS: ATTEND Obstetrics & Gynecology
DX: O24.419 Gestational diabetes mellitus in pregnancy, unspecified control (principal)

== ENCOUNTER 2021-03-13 23:42 | Outpatient (CLI) | payer OTHER ==
[~2021-03-13] VITALS: Ht 167.6 cm; Wt 110.2 kg
[2021-03-14 00:05] VITALS: BP 134/85
--- NOTE | 2021-03-14 01:52 | IPNPDOC ---
Text Note Date of Service The patient was seen on 03/14/21. NOTE Triage Note Pt is a 21yo with SIUP at 38w2d presenting with CC of low back pain. She notes the pain is dull and located in her lower back. No obvious ctx. No LOF. No vaginal bleeding. Good movement. Vitals wnl, afebrile Gen: WDWN, resting comfortably in bed Abdomen: soft, gravid, NTTP Extremities: no edema BLE SCE: 3/75/-2, posterior Reactive NST, bl 130, +accels, -decels, mod gracia Broxton: uterine irritability Assessment: Pt is a 21yo with SIUP at 38w2d with NO e/o labor. Favorable cervix to start IOL tomorrow. Vitals wnl, benign exam. Reassuring assessment. Plan: -Provided reassurance -Discharge to home -Will likely call patient to return in the am for scheduled IOL -good hydration -discussed return precautions MD Bridger Hernandez Katrina D MD Mar 14, 2021 00:44
== END 2021-03-14 00:40 | disposition home or self-care (01) ==
LOC: M LDO 23:42
PROVIDERS: ATTEND Obstetrics & Gynecology
DX: O26.893 Other specified pregnancy related conditions, third trimester (principal); M54.5 Low back pain; Z3A.38 38 weeks gestation of pregnancy; Z88.0 Allergy status to penicillin; Z88.1 Allergy status to other antibiotic agents; Z91.040 Latex allergy status; Z88.8 Allergy status to other drugs, medicaments and biological substances

== ENCOUNTER 2021-03-14 11:05 | Inpatient (IN) | payer OTHER ==
[2021-03-14] VITALS (19 sets, daily range): BP systolic 126–183; BP diastolic 58–109
[~2021-03-14] VITALS: Ht 167.6 cm; Wt 109.8 kg
[2021-03-14] MEDS ORDERED: LR 1,000 ML IV SCH ×2 (12:00→18:15)
[2021-03-14 13:43] LABS: AMPHETAMINES URINE REFLEX NEGATIVE (NEGATIVE); BARBITURATES URINE REFLEX NEGATIVE (NEGATIVE); BENZODIAZEPINES URINE REFLEX NEGATIVE (NEGATIVE); CANNABINOIDS URINE REFLEX NEGATIVE (NEGATIVE); COCAINE METABOLITE URINE REFLE NEGATIVE (NEGATIVE); METHADONE URINE REFLEX NEGATIVE (NEGATIVE); OPIATES URINE REFLEX NEGATIVE (NEGATIVE); PHENCYCLIDINE URINE REFLEX NEGATIVE (NEGATIVE)
--- NOTE | 2021-03-14 13:45 | REP ---
INDICATION: LGA fetus, evaluate growth and JAG, Diabetes. COMPARISON: None. TECHNIQUE: Transabdominal scanning to evaluate JAG and growth FINDINGS: Multiple ultrasonographic images of the gravid uterus shows a single living intrauterine gestation in the cephalic presentation. Doppler interrogation of the heart is a heart rate of 130 beats per minute. The placenta is anterior and not low-lying. The subjective amniotic fluid volume is within normal limits. The calculated amniotic fluid index is 16.3 within expected range 7.3 to 23.5. Secondary to the low position of the head inaccurate cervical length measurement could not be obtained. BPD: 10 cm 41 weeks 1 day HC: 34.9 cm 40 weeks 4 days AC: 35.8 cm 39 weeks 5 days FL: 7.3 cm 37 weeks 3 days The estimated weight is 3709 and g which is at the 88th percentile for a 38 week 2 day gestational age. IMPRESSION: Single living intrauterine gestation as described above with an estimated gestational age of 39 weeks 5 days via composite criteria an estimated date of delivery of 03/16/2021 by today's exam. <Electronically signed by Yandel Pike > 03/14/21 0651
[2021-03-14] MEDS ORDERED: LIDOCAINE 1% MDV 20ML VIAL INFIL PRN (14:20)
[2021-03-14] MEDS ORDERED: OXYTOCIN DRIP 30 UNITS in IV 1 EA IV PRN (14:20)
[2021-03-14] MEDS ORDERED: OXYTOCIN INJ 10 UNITS/ML VIAL (J2590) IM PRN (14:20)
[2021-03-14] MEDS ORDERED: METHYLERGONOVINE MALEATE 0.2 MG/ML VIAL (J2210) IM PRN (14:20)
[2021-03-14] MEDS ORDERED: miSOPROStol 50MCG 1/2 TABLET PO ONE (14:20)
[2021-03-14 15:13] LABS: HEMATOCRIT 36.4 % (36.0-47.0); HEMOGLOBIN 11.9 g/dl (12.0-15.5); MEAN CORPUSCULAR HEMOGLOBIN 29.3 pg (27.0-33.0); MEAN CORPUSCULAR HGB CONC 32.7 g/dl (32.0-36.5); MEAN CORPUSCULAR VOLUME 89.7 fl (80.0-96.0); PLATELET COUNT, AUTOMATED 286 10^3/uL (150-450); RED BLOOD COUNT 4.06 10^6/uL (4.00-5.40); WHITE BLOOD COUNT 13.1 10^3/uL (4.0-10.0)
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
[2021-03-14] MEDS: VANCOMYCIN HCL 1,000 MG, VIAL MATE ADAPTER 1 EACH in NS 250 ML IV SCH (16:13)
[2021-03-14 18:00] LABS: ALT/SGPT < 6 U/L (12-78); BILIRUBIN,TOTAL 0.3 MG/DL (0.2-1.0); CREATININE FOR GFR 0.44 MG/DL (0.55-1.30); GLOMERULAR FILTRATION RATE > 60.0 (>60); LDH LACTATE DEHYDROGENASE 257 U/L (84-246); URIC ACID 3.7 MG/DL (2.6-6.0)
[2021-03-14 18:03] LABS: CREATININE,RANDOM URINE 83.8 MG/DL; TOTAL PROTEIN,RANDOM URINE 19.4 MG/DL (0.0-12.0)
[2021-03-14] MEDS ORDERED: OXYTOCIN DRIP 30 UNITS in IV 1 EA IV SCH (18:15)
[2021-03-14] MEDS ORDERED: FENTANYL 2MCG/ML ROPIVACAINE 0.2% IN 0.9% NACL 100ML IVBAG As Ordered ONE (22:45)
[2021-03-14] MEDS ORDERED: LACTATED RINGER'S 1000 ML IV PRN (23:59)
[2021-03-14] MEDS ORDERED: ONDANSETRON 4MG/2ML VIAL IV PRN (23:59)
[2021-03-14] MEDS ORDERED: EPIDURAL COMMENT XX SCH (23:59)
[2021-03-14] MEDS ORDERED: FENTANYL/ROPIVACAINE/NACL BAG 100 ML EPIDURAL SCH (23:59)
[2021-03-14] MEDS ORDERED: REFRIGERATOR IV KEYS XX PRN (23:59)
[2021-03-14] MEDS ORDERED: ePHEDrine SULFATE 25 MG/5 ML(5MG/ML) SYRINGE IV PRN (23:59)
[2021-03-14] MEDS ORDERED: EPIDURAL/PCA KEYS XX PRN (23:59)
[2021-03-14] MEDS ORDERED: NALOXONE INJ 0.4MG/1ML VIAL (J2310 PER 1MG) IV PRN (23:59)
[2021-03-14] MEDS ORDERED: diphenhydrAMINE 50MG/ML VIAL (J1200) IV PRN (23:59)
[2021-03-15] VITALS (34 sets, daily range): BP systolic 99–158; BP diastolic 52–90
[2021-03-15] MEDS: VANCOMYCIN HCL 1,000 MG, VIAL MATE ADAPTER 1 EACH in NS 250 ML IV SCH (03:28)
[2021-03-15 03:57] LABS: CORD GAS ABE A -2.1; CORD GAS ABE V 1.3; CORD GAS HCO3 A 26.8 MEQ/L; CORD GAS HCO3 V 26.8 MEQ/L; CORD GAS O2 SAT A 58.2 %; CORD GAS O2 SAT V 78.5 %; CORD GAS PCO2 A 62.9 mmHg; CORD GAS PCO2 V 45.4 mmHg; CORD GAS PH A 7.248 UNITS; CORD GAS PH V 7.389 UNITS; CORD GAS PO2 A 26.1 mmHg; CORD GAS SBC A 21.6 MEQ/L; CORD GAS TCO2 A 28.8 MEQ/L; CORD GAS TCO2 V 28.2 MEQ/L
[2021-03-15] MEDS ORDERED: DOCUSATE SODIUM 100MG CAPSULE PO PRN (04:10)
[2021-03-15] MEDS ORDERED: RHOGAM 300 MCG (1500 IU) INJ (J2790) IM SCH (04:10)
[2021-03-15] MEDS ORDERED: IBUPROFEN 600MG TAB PO PRN (04:10)
[2021-03-15] MEDS ORDERED: ACETAMINOPHEN TAB 650MG DOSE (2X325MG) PO PRN (04:10)
[2021-03-15] MEDS ORDERED: DIBUCAINE 1% OINTMENT 30GM TOP PRN (04:10)
[2021-03-15] MEDS ORDERED: MEASLES,MUMPS,RUBELLA VACCINE INJ (MMR-II) (90707) SC SCH (04:10)
[2021-03-15] MEDS ORDERED: METHYLERGONOVINE MALEATE 0.2 MG TAB PO PRN (04:10)
[2021-03-15] MEDS: PRENATAL VITAMINS CHEWABLE TABLET PO SCH (08:02)
--- NOTE | 2021-03-15 08:39 | DN ---
DELIVERY NOTE DATE OF DELIVERY: 03/15/2021 TIME OF : 0340 GENDER: Male APGARS: 8 and 9 LACERATIONS: Periurethral ANESTHESIA: Epidural ESTIMATED BLOOD LOSS: 300 mL COUNTS: Correct and verified DESCRIPTION OF DELIVERY: Maranda is a 21-year-old 4, para 2-0-4-2 now who was admitted to labor and delivery for induction of labor due to uncontrolled gestational diabetes. Misoprostol and IV Pitocin was used and labor did ensue. She utilized an epidural for her labor coping. She reached complete dilation at 0333. She pushed to a normal spontaneous vaginal delivery of a live male infant in occiput anterior (OA) position with restitution to right occiput transverse (ROT) position at 0340. There was a nuchal cord x1 loose that was reduced manually at the time of delivery. The shoulders delivered spontaneously and the corpus immediately followed. The male was placed on the maternal abdomen after mouth and nares were bulb suctioned for bonding and stimulation. The cord was clamped x2 and cut by the father of the baby under my direction. Cord gases were obtained. Arterial cord pH 7.248 with a base excess of -2.1. Venous cord pH of 7.389 with a base excess of 1.3. Spontaneous expulsion of an intact placenta with three-vessel cord by Flowers mechanism was at 0349. Uterine hemostasis was achieved with IV Pitocin rapid infusion and uterine fundal massage. Estimated blood loss 300 mL. The perineum and vagina were inspected noted to have a periurethral laceration. The laceration was repaired with 3-0 Vicryl Rapide and three interrupted sutures. The male weighed 3800 grams (8 pounds 6 ounces). Apgars 8 and 9. Mom plans to breastfeed the baby and the family has named him Jaxx. At the close of delivery lap counts, needle counts, and instrument counts were correct and verified.
[2021-03-16 06:00] VITALS: BP 123/57
[2021-03-16] MEDS: PRENATAL VITAMINS CHEWABLE TABLET PO SCH (08:02)
[2021-03-16] MEDS: ACETAMINOPHEN 500 MG TAB PO PRN (08:07)
[2021-03-16] MEDS: IBUPROFEN 800 MG TAB PO PRN (12:27)
[2021-03-16 18:00] VITALS: BP 148/70
[2021-03-17] MEDS: IBUPROFEN 800 MG TAB PO PRN (03:02)
[2021-03-17 06:00] VITALS: BP 128/66
[2021-03-17] MEDS: PRENATAL VITAMINS CHEWABLE TABLET PO SCH (07:53)
[2021-03-17] MEDS: ACETAMINOPHEN 500 MG TAB PO PRN (07:54)
== END 2021-03-17 09:35 | disposition home or self-care (01) | DRG 560 ==
LOC: M LDI 11:05 → UNDOADMIN 11:05 → M LDI 11:56 → M OBS 03-15 06:05
PROVIDERS: ADMIT Advanced Practice Midwife; ATTEND Advanced Practice Midwife
PROC: 10E0XZZ Delivery of Products of Conception, External Approach (ICD-10-PCS; principal; 2021-03-15)
PROC: 3E0P7GC Introduction of Other Therapeutic Substance into Female Reproductive, Via Natural or Artificial Opening (ICD-10-PCS; 2021-03-15)
PROC: 0UQMXZZ Repair Vulva, External Approach (ICD-10-PCS; 2021-03-15)
PROC: 10907ZC Drainage of Amniotic Fluid, Therapeutic from Products of Conception, Via Natural or Artificial Opening (ICD-10-PCS; 2021-03-15)
DX: O24.414 Gestational diabetes mellitus in pregnancy, insulin controlled (principal); Z3A.38 38 weeks gestation of pregnancy; Z37.0 Single live birth; Z91.19 Patient's noncompliance with other medical treatment and regimen; O99.334 Smoking (tobacco) complicating childbirth; O69.81X0 Labor and delivery complicated by cord around neck, without compression, not applicable or unspecified; O71.82 Other specified trauma to perineum and vulva; F17.210 Nicotine dependence, cigarettes, uncomplicated

== ENCOUNTER 2021-04-13 16:09 | Emergency (ER) | payer OTHER ==
[~2021-04-13] VITALS: Ht 167.6 cm; Wt 90.9 kg
[2021-04-13 16:20] VITALS: BP 122/71
== END 2021-04-13 16:49 | disposition left against medical advice (07) ==
LOC: M ED 16:09
DX: G40.909 Epilepsy, unspecified, not intractable, without status epilepticus (principal); Z88.0 Allergy status to penicillin; Z88.8 Allergy status to other drugs, medicaments and biological substances; Z91.040 Latex allergy status; Z91.048 Other nonmedicinal substance allergy status

== ENCOUNTER 2021-05-19 00:56 | Emergency (ER) | payer OTHER ==
[~2021-05-19] VITALS: Ht 167.6 cm; Wt 77.3 kg
[2021-05-19 05:33] LABS: HEMATOCRIT 45.4 % (36.0-47.0); HEMOGLOBIN 14.6 g/dl (12.0-15.5); MEAN CORPUSCULAR HEMOGLOBIN 28.5 pg (27.0-33.0); MEAN CORPUSCULAR HGB CONC 32.2 g/dl (32.0-36.5); MEAN CORPUSCULAR VOLUME 88.7 fl (80.0-96.0); PLATELET COUNT, AUTOMATED 330 10^3/uL (150-450); RED BLOOD COUNT 5.12 10^6/uL (4.00-5.40); WHITE BLOOD COUNT 12.5 10^3/uL (4.0-10.0)
[2021-05-19 05:49] LABS: AMPHETAMINES LEVEL URINE NEGATIVE (NEGATIVE); BARBITURATES URINE NEGATIVE (NEGATIVE); BENZODIAZEPINES URINE NEGATIVE (NEGATIVE); CANNABINOIDS URINE NEGATIVE (NEGATIVE); COCAINE METABOLITE URINE NEGATIVE (NEGATIVE); METHADONE URINE NEGATIVE (NEGATIVE); OPIATES URINE NEGATIVE (NEGATIVE); PHENCYCLIDINE URINE NEGATIVE (NEGATIVE)
[2021-05-19 05:59] LABS: ACETAMINOPHEN LEVEL < 2.0 UG/ML (10.0-30.0); ALBUMIN 3.8 GM/DL (3.2-5.2); ALT/SGPT 12 U/L (12-78); BILIRUBIN,DIRECT < 0.1 MG/DL (0.0-0.2); BILIRUBIN,TOTAL 0.4 MG/DL (0.2-1.0); BLOOD UREA NITROGEN 8 MG/DL (7-18); CALCIUM LEVEL 8.8 MG/DL (8.5-10.1); CARBON DIOXIDE LEVEL 32 MEQ/L (21-32); CHLORIDE LEVEL 106 MEQ/L (98-107); ETHYL ALCOHOL (ETHANOL) < 0.003 % (0.000-0.010); GLOMERULAR FILTRATION RATE > 60.0 (>60); GLUCOSE, FASTING 84 MG/DL (70-100); POTASSIUM SERUM 4.2 MEQ/L (3.5-5.1); SALICYLATE LEVEL < 1.7 MG/DL (5.0-30.0); SODIUM LEVEL 140 MEQ/L (136-145); TOTAL PROTEIN 7.4 GM/DL (6.4-8.2)
[2021-05-19 06:02] LABS: HCG, SERUM QUALITATIVE NEGATIVE (NEGATIVE)
[2021-05-19 12:48] VITALS: BP 119/57
== END 2021-05-19 13:32 | disposition home or self-care (01) ==
LOC: M ED 00:56
DX: F43.0 Acute stress reaction (principal); F17.200 Nicotine dependence, unspecified, uncomplicated

== ENCOUNTER → 2021-09-10 | Outpatient (CLI) | payer OTHER ==
[~2021-09-10] MED LIST changes: +CLIN-250 PO; -CLIN300C6 PO
--- NOTE | 2021-09-10 14:06 | REP ---
INDICATION: LEFT ANKLE R/O FX. COMPARISON: None. TECHNIQUE: Four views FINDINGS: No acute fracture or destructive osseous lesion. The mortise is intact. IMPRESSION: There is no acute osseous abnormality. <Electronically signed by Yandel Pike > 09/10/21 1943
== END ==
LOC: M RAD 13:42
PROVIDERS: ATTEND Physician Assistant Medical
DX: S99.912A Unspecified injury of left ankle, initial encounter (principal); X58.XXXA Exposure to other specified factors, initial encounter; Y92.89 Other specified places as the place of occurrence of the external cause

== ENCOUNTER 2021-09-21 19:20 | Emergency (ER) | payer OTHER ==
[~2021-09-21] VITALS: Ht 167.6 cm; Wt 90.9 kg
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
[2021-09-21] MEDS ORDERED: IBUPROFEN 800 MG TAB PO ONE (20:55)
[2021-09-21 21:10] VITALS: BP 124/60
== END 2021-09-21 21:30 | disposition home or self-care (01) ==
LOC: M ED 19:20
DX: S93.602A Unspecified sprain of left foot, initial encounter (principal); X50.9XXA Other and unspecified overexertion or strenuous movements or postures, initial encounter; Y92.018 Other place in single-family (private) house as the place of occurrence of the external cause; J45.909 Unspecified asthma, uncomplicated; F33.9 Major depressive disorder, recurrent, unspecified; F41.9 Anxiety disorder, unspecified; R51.9 Headache, unspecified; R56.9 Unspecified convulsions; Z88.0 Allergy status to penicillin; Z88.8 Allergy status to other drugs, medicaments and biological substances; Z91.040 Latex allergy status; Z91.048 Other nonmedicinal substance allergy status; F17.210 Nicotine dependence, cigarettes, uncomplicated

== ENCOUNTER → 2021-11-27 | Outpatient (REF) | payer OTHER ==
[2021-11-27 13:09] LABS: HEMATOCRIT 31.7 % (36.0-47.0); HEMOGLOBIN 10.1 g/dl (12.0-15.5); MEAN CORPUSCULAR HGB CONC 31.9 g/dl (32.0-36.5); MEAN CORPUSCULAR VOLUME 91.1 fl (80.0-96.0); PLATELET COUNT, AUTOMATED 272 10^3/uL (150-450); RED BLOOD COUNT 3.48 10^6/uL (4.00-5.40); WHITE BLOOD COUNT 18.7 10^3/uL (4.0-10.0)
[2021-11-27 17:58] LABS: HEPATITIS B SURFACE ANTIGEN NEGATIVE (NEGATIVE); HIV 1&2 SCREEN CENTAUR NEGATIVE (NEGATIVE)
== END ==
LOC: M LAB REF 12:12
PROVIDERS: ATTEND Obstetrics & Gynecology
DX: Z32.01 Encounter for pregnancy test, result positive (principal)

== ENCOUNTER → 2021-12-05 | Outpatient (REF) | payer OTHER ==
[2021-12-06 18:21] LABS: URINE TOTAL PROTEIN 16.6 MG/DL (0-12)
[2021-12-07 20:11] LABS: TOTAL PROTEIN 24 HOUR URINE 182.6 MG/24HR (50-150)
== END ==
LOC: M LAB REF 17:37
PROVIDERS: ATTEND Obstetrics & Gynecology
DX: O09.92 Supervision of high risk pregnancy, unspecified, second trimester (principal)

== ENCOUNTER → 2021-12-06 | Outpatient (REF) | payer OTHER ==
[2021-12-06 18:14] LABS: HEMATOCRIT 33.3 % (36.0-47.0); HEMOGLOBIN 10.7 g/dl (12.0-15.5); MEAN CORPUSCULAR HEMOGLOBIN 28.8 pg (27.0-33.0); MEAN CORPUSCULAR HGB CONC 32.1 g/dl (32.0-36.5); MEAN CORPUSCULAR VOLUME 89.8 fl (80.0-96.0); PLATELET COUNT, AUTOMATED 277 10^3/uL (150-450); RED BLOOD COUNT 3.71 10^6/uL (4.00-5.40); WHITE BLOOD COUNT 15.5 10^3/uL (4.0-10.0)
[2021-12-06 18:28] LABS: ALT/SGPT 8 U/L (12-78); BILIRUBIN,TOTAL 0.2 MG/DL (0.2-1.0); CREATININE FOR GFR 0.48 MG/DL (0.55-1.30); GLOMERULAR FILTRATION RATE > 60.0 (>60); LDH LACTATE DEHYDROGENASE 169 U/L (84-246); URIC ACID 3.3 MG/DL (2.6-6.0)
[2021-12-06 19:30] LABS: ANISOCYTOSIS 1+; BASOPHILS 1 % (0-1); LYMPHOCYTES 32 % (16-44); MONOCYTES 1 % (0-5); NEUTROPHILS 63 % (28-66); PLATELET ESTIMATE NORMAL (NORMAL); POLYCHROMASIA 1+
== END ==
LOC: M LAB REF 17:34
PROVIDERS: ATTEND Obstetrics & Gynecology
DX: Z34.03 Encounter for supervision of normal first pregnancy, third trimester (principal); L29.9 Pruritus, unspecified

== ENCOUNTER → 2022-01-09 | Outpatient (REF) | payer OTHER | LOC: M LAB REF 16:21 | PROVIDERS: ATTEND Obstetrics & Gynecology | DX: Z34.83 Encounter for supervision of other normal pregnancy, third trimester (principal) ==

== ENCOUNTER → 2022-01-23 | Outpatient (CLI) | payer OTHER ==
[~2022-01-23] MED LIST changes: +ADME100I; +BD I1MIS12; +BD P31MI2; +GLYB2.5T7; +GLYB5TAB6; +INSU100I14; +INSU100I14 SQ; +ONETKIT; +ONETTES13; +ONETTES6; +[UNRECOGNIZED DRUG - CODE]; +[UNRECOGNIZED DRUG - SUPPLY]
== END ==
LOC: M WHC 09:54
PROVIDERS: ATTEND Obstetrics & Gynecology
DX: O99.891 Other specified diseases and conditions complicating pregnancy (principal)

== ENCOUNTER 2022-08-20 21:36 | Emergency (ER) | payer OTHER ==
[~2022-08-20] VITALS: Ht 157.5 cm; Wt 103.5 kg
[~2022-08-20 21:36] MED LIST changes: +ETON68IM SC; -NEXP1IMP SC
[2022-08-20 21:38] VITALS: BP 144/66
== END 2022-08-20 23:35 | disposition left against medical advice (07) ==
LOC: M ED 21:36
DX: Z53.21 Procedure and treatment not carried out due to patient leaving prior to being seen by health care provider (principal)

== ENCOUNTER 2022-08-24 13:28 | Emergency (ER) | payer OTHER ==
[~2022-08-24] VITALS: Ht 167.6 cm; Wt 103.9 kg
[2022-08-24 14:31] LABS: BASO % 0.4 % (0.0-1.0); EOS # 0.2 10^3/uL (0.0-0.5); EOS % 2.2 % (0.0-3.0); HEMOGLOBIN 12.8 g/dl (12.0-15.5); LYMPH # 2.7 10^3/uL (1.5-5.0); LYMPH % 25.2 % (24.0-44.0); MEAN CORPUSCULAR HEMOGLOBIN 28.8 pg (27.0-33.0); MEAN CORPUSCULAR VOLUME 90.1 fl (80.0-96.0); MONO # 0.3 10^3/uL (0.0-0.8); MONO % 2.8 % (2.0-8.0); NEUTROPHILS # 7.3 10^3/uL (1.5-8.5); NEUTROPHILS % 68.7 % (36.0-66.0); PLATELET COUNT, AUTOMATED 267 10^3/uL (150-450); RED BLOOD COUNT 4.44 10^6/uL (4.00-5.40); WHITE BLOOD COUNT 10.5 10^3/uL (4.0-10.0)
[2022-08-24 15:08] LABS: BLOOD UREA NITROGEN 15 MG/DL (9-23); CALCIUM LEVEL 8.3 MG/DL (8.5-10.1); CARBON DIOXIDE LEVEL 26 MMOL/L (20-31); CHLORIDE LEVEL 104 MMOL/L (98-107); CREATININE FOR GFR 0.68 MG/DL (0.55-1.30); GLOMERULAR FILTRATION RATE > 60.0 (>60); GLUCOSE, FASTING 179 MG/DL (60-100); POTASSIUM SERUM 3.9 MMOL/L (3.5-5.1); SODIUM LEVEL 140 MMOL/L (136-145)
[2022-08-24 16:28] VITALS: BP 145/74
== END 2022-08-24 16:30 | disposition home or self-care (01) ==
LOC: M ED 13:28
DX: N93.9 Abnormal uterine and vaginal bleeding, unspecified (principal); N83.02 Follicular cyst of left ovary; G40.89 Other seizures; F41.9 Anxiety disorder, unspecified; F17.200 Nicotine dependence, unspecified, uncomplicated; F12.10 Cannabis abuse, uncomplicated; Z87.42 Personal history of other diseases of the female genital tract; Z91.040 Latex allergy status; Z88.0 Allergy status to penicillin; Z88.1 Allergy status to other antibiotic agents; Z91.048 Other nonmedicinal substance allergy status

== ENCOUNTER 2022-09-21 14:45 | Emergency (ER) | payer OTHER ==
[2022-09-21] MEDS ORDERED: ZITHTAB PO (15:02)
[2022-09-21 16:25] VITALS: BP 124/71
[2022-09-21] MEDS ORDERED: ACETAMINOPHEN 500 MG TAB PO ONE (16:40)
== END 2022-09-21 17:25 | disposition home or self-care (01) ==
LOC: M ED 14:45
DX: H66.90 Otitis media, unspecified, unspecified ear (principal); H72.90 Unspecified perforation of tympanic membrane, unspecified ear; S00.33XA Contusion of nose, initial encounter; S61.411A Laceration without foreign body of right hand, initial encounter; S60.221A Contusion of right hand, initial encounter; Y04.8XXA Assault by other bodily force, initial encounter; Y92.099 Unspecified place in other non-institutional residence as the place of occurrence of the external cause; R56.9 Unspecified convulsions; J45.909 Unspecified asthma, uncomplicated; F41.9 Anxiety disorder, unspecified; F32.9 Major depressive disorder, single episode, unspecified; F17.200 Nicotine dependence, unspecified, uncomplicated; Z91.040 Latex allergy status; Z88.0 Allergy status to penicillin

== ENCOUNTER 2022-11-07 07:28 | Inpatient (IN) | payer MEDICAID, OTHER ==
[~2022-11-07] VITALS: Ht 167.6 cm; Wt 89.7 kg
[~2022-11-07 07:28] MED LIST changes: +ZITHTAB PO
[2022-11-07] MEDS ORDERED: NS 1,000 ML IV ONE ×3 (07:35→14:40)
[2022-11-07 08:17] LABS: VENOUS BASE EXCESS -4.5 (-2.0-2.0); VENOUS HCO3 20.4 MEQ/L (23.0-27.0); VENOUS O2 SATURATION 97.8 % (60.0-80.0); VENOUS PARTIAL PRESSURE CO2 37.2 mmHg (38.0-50.0); VENOUS PARTIAL PRESSURE O2 110.7 mmHg (30.0-50.0); VENOUS PH 7.356 UNITS (7.330-7.430); VENOUS STANDARD HCO3 20.8 MEQ/L; VENOUS TOTAL CO2 21.5 MEQ/L (24.0-28.0)
[2022-11-07 08:33] LABS: BASO % 0.5 % (0.0-1.0); EOS # 0.1 10^3/uL (0.0-0.5); HEMATOCRIT 40.8 % (36.0-47.0); HEMOGLOBIN 13.6 g/dl (12.0-15.5); LYMPH % 33.6 % (24.0-44.0); MEAN CORPUSCULAR HEMOGLOBIN 29.8 pg (27.0-33.0); MEAN CORPUSCULAR HGB CONC 33.3 g/dl (32.0-36.5); MEAN CORPUSCULAR VOLUME 89.5 fl (80.0-96.0); MONO # 0.4 10^3/uL (0.0-0.8); NEUTROPHILS # 5.3 10^3/uL (1.5-8.5); NEUTROPHILS % 60.7 % (36.0-66.0); PLATELET COUNT, AUTOMATED 253 10^3/uL (150-450); RED BLOOD COUNT 4.56 10^6/uL (4.00-5.40); WHITE BLOOD COUNT 8.8 10^3/uL (4.0-10.0)
[2022-11-07 08:39] LABS: ETHYL ALCOHOL (ETHANOL) < 0.003 % (0.000-0.010)
[2022-11-07 08:41] LABS: ACETAMINOPHEN LEVEL < 2.0 UG/ML (10.0-20.0); ALBUMIN 3.6 G/DL (3.2-5.2); ALKALINE PHOSPHATASE 77 U/L (46-116); ALT/SGPT < 9 U/L (7.0-40); AST/SGOT 33 U/L (<34); BILIRUBIN,DIRECT 0.2 MG/DL (<0.4); BILIRUBIN,TOTAL 0.7 MG/DL (0.3-1.2); BLOOD UREA NITROGEN 9 MG/DL (9-23); CALCIUM LEVEL 8.5 MG/DL (8.5-10.1); CARBON DIOXIDE LEVEL 20 MMOL/L (20-31); CHLORIDE LEVEL 105 MMOL/L (98-107); CREATININE FOR GFR 0.61 MG/DL (0.55-1.30); GLOMERULAR FILTRATION RATE > 60.0 (>60); GLUCOSE, FASTING 100 MG/DL (60-100); POTASSIUM SERUM 4.5 MMOL/L (3.5-5.1); SALICYLATE LEVEL < 3.0 MG/DL (<30); SODIUM LEVEL 139 MMOL/L (136-145); TOTAL PROTEIN 6.4 G/DL (5.7-8.2)
[2022-11-07 08:41] LABS: RSV AMPLIFICATION NEGATIVE (NEGATIVE)
[2022-11-07 08:44] LABS: THYROID STIMULATING HORMONE 6.431 uIU/ML (0.55-4.78)
[2022-11-07 08:46] LABS: CPK CREATINE PHOSPHOKINASE 140 U/L (34-145)
[2022-11-07 09:10] LABS: BARBITURATES URINE NEGATIVE (NEGATIVE); BENZODIAZEPINES URINE NEGATIVE (NEGATIVE); COCAINE METABOLITE URINE NEGATIVE (NEGATIVE); METHADONE URINE NEGATIVE (NEGATIVE); OPIATES URINE NEGATIVE (NEGATIVE); PHENCYCLIDINE URINE NEGATIVE (NEGATIVE)
[2022-11-07 09:14] LABS: AMPHETAMINES LEVEL URINE POSITIVE (NEGATIVE); CANNABINOIDS URINE POSITIVE (NEGATIVE)
[2022-11-07 09:15] LABS: OSMOLALITY SERUM 301 MOSM/KG (275-295)
[2022-11-07 10:14] LABS: HEMOGLOBIN A1c 5.4 % (4.0-6.0)
[2022-11-07] MEDS ORDERED: BANO25TA PO (20:27)
[2022-11-07] MEDS ORDERED: HOME MED LIST COMPLETE! XX SCH (20:30)
[2022-11-08] MEDS ORDERED: MAALOX 30 ML SUSP *UDC PO PRN (17:30)
[2022-11-08] MEDS ORDERED: MOM 30ML SUSPENSION UDC PO PRN (17:30)
[2022-11-08] MEDS ORDERED: ACETAMINOPHEN TAB 650MG DOSE (2X325MG) PO PRN (17:30)
[2022-11-08] MEDS: traZODone 50 MG TAB PO PRN (21:53)
[2022-11-09 06:24] VITALS: BP 105/52
[2022-11-09 16:32] VITALS: BP 113/60
[2022-11-09] MEDS ORDERED: diphenhydrAMINE 50MG CAP PO ONE (19:45)
[2022-11-10 06:06] VITALS: BP 130/62
[2022-11-10] MEDS: NICOTINE 21MG/24HR 1 EA TRANSDERMAL TD SCH (11:23)
[2022-11-10 16:06] VITALS: BP 138/82
[2022-11-10] MEDS: traZODone 50 MG TAB PO PRN (22:28)
[2022-11-11 06:33] VITALS: BP 116/56
[2022-11-11] MEDS: NICOTINE 21MG/24HR 1 EA TRANSDERMAL TD SCH (08:37)
[2022-11-11] MEDS: FLUoxetine 10 MG CAP PO SCH (10:41)
[2022-11-11 18:02] VITALS: BP 143/79
[2022-11-11] MEDS: traZODone 50 MG TAB PO PRN (20:18)
[2022-11-12 06:12] VITALS: BP 126/82
[2022-11-12 07:55] LABS: CHOLESTEROL RISK RATIO 4.2 (<5); HDL CHOLESTEROL 47.8 MG/DL (>40); LDL CHOLESTEROL 125.4 MG/DL (<100)
[2022-11-12 08:03] LABS: HEMOGLOBIN A1c 5.5 % (4.0-6.0)
[2022-11-12] MEDS: FLUoxetine 10 MG CAP PO SCH (08:49)
[2022-11-12] MEDS: NICOTINE 21MG/24HR 1 EA TRANSDERMAL TD SCH (08:49)
[2022-11-12] MEDS ORDERED: cloNIDine 0.1MG TABLET PO PRN (09:30)
[2022-11-12] MEDS ORDERED: FLUoxetine 10 MG CAP PO ONE (10:45)
[2022-11-12 15:44] VITALS: BP 159/85
[2022-11-12] MEDS: QUEtiapine FUMARATE 25 MG TAB PO SCH (20:10)
[2022-11-12] MEDS: traZODone 50 MG TAB PO PRN (20:10)
[2022-11-13 07:00] VITALS: BP 102/51
[2022-11-13] MEDS: FLUoxetine 20MG CAP PO SCH (09:06)
[2022-11-13] MEDS: NICOTINE 21MG/24HR 1 EA TRANSDERMAL TD SCH (09:07)
[2022-11-13 16:55] VITALS: BP 130/69
[2022-11-13] MEDS: traZODone 50 MG TAB PO PRN (20:24)
[2022-11-13] MEDS: QUEtiapine FUMARATE 25 MG TAB PO SCH (20:24)
[2022-11-14 06:25] VITALS: BP 113/58
[2022-11-14] MEDS: FLUoxetine 20MG CAP PO SCH (08:29)
[2022-11-14] MEDS: NICOTINE 21MG/24HR 1 EA TRANSDERMAL TD SCH (08:30)
[2022-11-14] MEDS ORDERED: NICO21PAT TD (10:29)
[2022-11-14] MEDS ORDERED: QUET1TAB17 PO (10:29)
[2022-11-14] MEDS ORDERED: FLUO20CA22 PO (10:29)
[2022-11-14] MEDS ORDERED: TRAZ-252 PO (10:29)
== END 2022-11-14 13:15 | disposition home or self-care (01) | DRG 754 ==
LOC: M ED 07:28 → M ED INP 11-08 17:27 → M PSY 11-08 21:03
PROVIDERS: ADMIT Student in an Organized Health Care Education/Training Program; ATTEND Student in an Organized Health Care Education/Training Program
DX: F43.21 Adjustment disorder with depressed mood (principal); F60.89 Other specific personality disorders; F15.90 Other stimulant use, unspecified, uncomplicated; R45.851 Suicidal ideations; G40.909 Epilepsy, unspecified, not intractable, without status epilepticus; F17.210 Nicotine dependence, cigarettes, uncomplicated; Z79.899 Other long term (current) drug therapy; Z20.822 Contact with and (suspected) exposure to COVID-19; Z88.0 Allergy status to penicillin; Z88.1 Allergy status to other antibiotic agents; Z88.8 Allergy status to other drugs, medicaments and biological substances; Z91.040 Latex allergy status; Z91.048 Other nonmedicinal substance allergy status; Z91.52 Personal history of nonsuicidal self-harm; Z91.411 Personal history of adult psychological abuse; Z65.3 Problems related to other legal circumstances

== ENCOUNTER 2022-12-09 05:29 | Emergency (ER) | payer MEDICAID, OTHER ==
[~2022-12-09] VITALS: Ht 167.6 cm; Wt 94.3 kg
[~2022-12-09 05:29] MED LIST changes: +BANO25TA PO; +FLUO20CA22 PO; +NICO21PAT TD; +QUET1TAB17 PO; +TRAZ-252 PO
[2022-12-09] MEDS ORDERED: ACETAMINOPHEN 325 MG TAB PO ONE (07:15)
[2022-12-09 08:18] LABS: HCG, SERUM QUALITATIVE NEGATIVE (NEGATIVE)
[2022-12-09] MEDS ORDERED: ISOVUE-370 76% 100ML VIAL As Ordered ONE (09:20)
[2022-12-09 10:48] VITALS: BP 138/61
== END 2022-12-09 10:50 | disposition home or self-care (01) ==
LOC: M ED 05:29 → EDBD 05:29 → M ED 10:50
DX: S00.83XA Contusion of other part of head, initial encounter (principal); S10.93XA Contusion of unspecified part of neck, initial encounter; Y04.0XXA Assault by unarmed brawl or fight, initial encounter; Y92.039 Unspecified place in apartment as the place of occurrence of the external cause; Y93.89 Activity, other specified; Y99.8 Other external cause status; J35.2 Hypertrophy of adenoids; Z88.0 Allergy status to penicillin; Z88.1 Allergy status to other antibiotic agents; Z91.040 Latex allergy status; Z79.899 Other long term (current) drug therapy
CPT/HCPCS: 36415; 70450; 70486; 70490; 70498; 72125; 80047; 84703; 99284; Q9967

== ENCOUNTER 2023-01-16 00:04 | Emergency (ER) | payer OTHER ==
[~2023-01-16 00:04] MED LIST changes: +BLOO-85; -ONETKIT
[2023-01-16 04:22] VITALS: BP 143/82
[2023-01-16] MEDS ORDERED: ETON1VAG3 (22:01)
[2023-01-17] MEDS ORDERED: BACT800T5 PO (00:30)
[2023-01-17] MEDS ORDERED: HYDR-3363 PO (00:31)
== END 2023-01-16 05:00 | disposition left against medical advice (07) ==
LOC: EDBD 00:04 → M ED 00:04
DX: R21 Rash and other nonspecific skin eruption (principal); Z53.21 Procedure and treatment not carried out due to patient leaving prior to being seen by health care provider

== ENCOUNTER 2023-01-16 20:00 | Emergency (ER) | payer OTHER ==
[~2023-01-16] VITALS: Ht 167.6 cm; Wt 81.1 kg
[2023-01-16] MEDS ORDERED: NS 1,000 ML IV ONE (22:00)
[2023-01-16] MEDS ORDERED: ETON1VAG3 (22:01)
[2023-01-16 22:05] LABS: BASO % 0.3 % (0.0-1.0); EOS # 0.3 10^3/uL (0.0-0.5); EOS % 2.2 % (0.0-3.0); HEMATOCRIT 40.5 % (36.0-47.0); HEMOGLOBIN 13.7 g/dl (12.0-15.5); LYMPH # 2.5 10^3/uL (1.5-5.0); LYMPH % 21.6 % (24.0-44.0); MEAN CORPUSCULAR HGB CONC 33.8 g/dl (32.0-36.5); MEAN CORPUSCULAR VOLUME 88.6 fl (80.0-96.0); MONO # 0.5 10^3/uL (0.0-0.8); MONO % 4.3 % (2.0-8.0); NEUTROPHILS # 8.3 10^3/uL (1.5-8.5); NEUTROPHILS % 70.8 % (36.0-66.0); PLATELET COUNT, AUTOMATED 317 10^3/uL (150-450); RED BLOOD COUNT 4.57 10^6/uL (4.00-5.40); WHITE BLOOD COUNT 11.7 10^3/uL (4.0-10.0)
[2023-01-16 22:48] LABS: BLOOD UREA NITROGEN 7 MG/DL (9-23); CALCIUM LEVEL 8.4 MG/DL (8.5-10.1); CARBON DIOXIDE LEVEL 22 MMOL/L (20-31); CHLORIDE LEVEL 102 MMOL/L (98-107); CREATININE FOR GFR 0.59 MG/DL (0.55-1.30); GLOMERULAR FILTRATION RATE > 60.0 (>60); GLUCOSE, FASTING 90 MG/DL (60-100); POTASSIUM SERUM 4.6 MMOL/L (3.5-5.1); SODIUM LEVEL 137 MMOL/L (136-145)
[2023-01-16 23:51] LABS: GC DNA AMPLIFICATION NEGATIVE (NEGATIVE)
[2023-01-17 00:21] VITALS: BP 136/77
[2023-01-17] MEDS ORDERED: BACT800T5 PO (00:30)
[2023-01-17] MEDS ORDERED: HYDR-3363 PO (00:31)
[2023-01-18] MEDS ORDERED: AZIT500T5 PO (19:28)
[2023-01-18] MEDS ORDERED: ONDA4TAB6 PO (20:03)
== END 2023-01-17 01:13 | disposition home or self-care (01) ==
LOC: M ED 20:00
DX: R21 Rash and other nonspecific skin eruption (principal); S90.821A Blister (nonthermal), right foot, initial encounter; X58.XXXA Exposure to other specified factors, initial encounter; Y92.89 Other specified places as the place of occurrence of the external cause; Y93.89 Activity, other specified; Y99.8 Other external cause status; N39.0 Urinary tract infection, site not specified

== ENCOUNTER 2023-01-18 17:30 | Emergency (ER) | payer OTHER ==
[~2023-01-18] VITALS: Ht 167.6 cm; Wt 89.7 kg
[~2023-01-18 17:30] MED LIST changes: +BACT800T5 PO; +ETON1VAG3; +HYDR-3363 PO
[2023-01-18] MEDS ORDERED: ONDANSETRON 4MG 2ML VIAL IV ONE (18:00)
[2023-01-18] MEDS ORDERED: NS 1,000 ML IV ONE (18:00)
[2023-01-18 18:25] LABS: BASO % 0.4 % (0.0-1.0); EOS # 0.2 10^3/uL (0.0-0.5); EOS % 2.1 % (0.0-3.0); HEMATOCRIT 42.6 % (36.0-47.0); HEMOGLOBIN 14.3 g/dl (12.0-15.5); LYMPH # 1.7 10^3/uL (1.5-5.0); MEAN CORPUSCULAR HEMOGLOBIN 29.4 pg (27.0-33.0); MEAN CORPUSCULAR HGB CONC 33.6 g/dl (32.0-36.5); MEAN CORPUSCULAR VOLUME 87.7 fl (80.0-96.0); MONO # 0.4 10^3/uL (0.0-0.8); MONO % 3.7 % (2.0-8.0); NEUTROPHILS # 7.7 10^3/uL (1.5-8.5); NEUTROPHILS % 76.1 % (36.0-66.0); PLATELET COUNT, AUTOMATED 335 10^3/uL (150-450); RED BLOOD COUNT 4.86 10^6/uL (4.00-5.40); WHITE BLOOD COUNT 10.1 10^3/uL (4.0-10.0)
[2023-01-18 18:54] LABS: LIPASE 18 U/L (12-53)
[2023-01-18] MEDS ORDERED: AZITHROMYCIN INJ 500 MG, VIAL MATE ADAPTER 1 EACH in NS 250 ML IV ONE (18:55)
[2023-01-18 18:56] LABS: ALBUMIN 2.8 G/DL (3.2-5.2); ALKALINE PHOSPHATASE 86 U/L (46-116); ALT/SGPT 14 U/L (7.0-40); AST/SGOT 86 U/L (<34); BILIRUBIN,TOTAL 0.5 MG/DL (0.3-1.2); BLOOD UREA NITROGEN 6 MG/DL (9-23); CALCIUM LEVEL 8.3 MG/DL (8.5-10.1); CARBON DIOXIDE LEVEL 27 MMOL/L (20-31); CHLORIDE LEVEL 100 MMOL/L (98-107); CREATININE FOR GFR 0.68 MG/DL (0.55-1.30); GLOMERULAR FILTRATION RATE > 60.0 (>60); GLUCOSE, FASTING 108 MG/DL (60-100); MAGNESIUM LEVEL 1.6 MG/DL (1.8-2.4); POTASSIUM SERUM 3.8 MMOL/L (3.5-5.1); SODIUM LEVEL 136 MMOL/L (136-145); TOTAL PROTEIN 6.7 G/DL (5.7-8.2)
[2023-01-18 19:12] LABS: HCG, SERUM QUALITATIVE NEGATIVE (NEGATIVE)
[2023-01-18] MEDS ORDERED: AZIT500T5 PO (19:28)
[2023-01-18] MEDS ORDERED: ONDA4TAB6 PO (20:03)
[2023-01-18 20:29] VITALS: BP 137/86
== END 2023-01-18 20:45 | disposition home or self-care (01) ==
LOC: EDBD 17:30 → M ED 17:30
DX: A09 Infectious gastroenteritis and colitis, unspecified (principal); N83.202 Unspecified ovarian cyst, left side; J02.0 Streptococcal pharyngitis; Z88.0 Allergy status to penicillin; Z91.040 Latex allergy status; Z88.1 Allergy status to other antibiotic agents
CPT/HCPCS: 74176; 80053; 83605; 83690; 83735; 84703; 85025; 87486; 87581; 87633; 87798; 87880; 96365; 96375; 99284; J0456; J2405

== ENCOUNTER 2023-01-21 10:25 | Inpatient (IN) | payer MEDICAID, OTHER ==
[~2023-01-21 10:25] MED LIST changes: +AZIT500T5 PO; +ONDA4TAB6 PO
[2023-01-21 11:15] LABS: HEMATOCRIT 44.8 % (36.0-47.0); HEMOGLOBIN 15.3 g/dl (12.0-15.5); MEAN CORPUSCULAR HEMOGLOBIN 29.8 pg (27.0-33.0); MEAN CORPUSCULAR HGB CONC 34.2 g/dl (32.0-36.5); MEAN CORPUSCULAR VOLUME 87.2 fl (80.0-96.0); PLATELET COUNT, AUTOMATED 335 10^3/uL (150-450); RED BLOOD COUNT 5.14 10^6/uL (4.00-5.40); WHITE BLOOD COUNT 13.5 10^3/uL (4.0-10.0)
[2023-01-21 11:34] LABS: ETHYL ALCOHOL (ETHANOL) 0.008 % (0.000-0.010)
[2023-01-21 11:36] LABS: ACETAMINOPHEN LEVEL < 2.0 UG/ML (10.0-20.0); ALBUMIN 2.7 G/DL (3.2-5.2); ALKALINE PHOSPHATASE 85 U/L (46-116); ALT/SGPT 13 U/L (7.0-40); AST/SGOT 59 U/L (<34); BILIRUBIN,DIRECT 0.2 MG/DL (<0.4); BILIRUBIN,TOTAL 0.4 MG/DL (0.3-1.2); BLOOD UREA NITROGEN 6 MG/DL (9-23); CARBON DIOXIDE LEVEL 28 MMOL/L (20-31); CHLORIDE LEVEL 101 MMOL/L (98-107); CREATININE FOR GFR 0.68 MG/DL (0.55-1.30); GLOMERULAR FILTRATION RATE > 60.0 (>60); GLUCOSE, FASTING 118 MG/DL (60-100); POTASSIUM SERUM 3.6 MMOL/L (3.5-5.1); SALICYLATE LEVEL < 3.0 MG/DL (<30); SODIUM LEVEL 135 MMOL/L (136-145); TOTAL PROTEIN 6.6 G/DL (5.7-8.2)
[2023-01-21 11:39] LABS: THYROID STIMULATING HORMONE 3.215 uIU/ML (0.55-4.78)
[2023-01-21 16:12] LABS: AMPHETAMINES LEVEL URINE NEGATIVE (NEGATIVE); BARBITURATES URINE NEGATIVE (NEGATIVE); BENZODIAZEPINES URINE NEGATIVE (NEGATIVE); COCAINE METABOLITE URINE NEGATIVE (NEGATIVE); METHADONE URINE NEGATIVE (NEGATIVE); OPIATES URINE NEGATIVE (NEGATIVE); PHENCYCLIDINE URINE NEGATIVE (NEGATIVE)
[2023-01-21 16:14] LABS: CANNABINOIDS URINE POSITIVE (NEGATIVE)
[2023-01-21] MEDS ORDERED: AZIT500T5 PO (17:18)
[2023-01-21] MEDS ORDERED: BACT800T5 PO (17:18)
[2023-01-21] MEDS ORDERED: ONDA4TAB6 PO (17:18)
[2023-01-21] MEDS ORDERED: HYDR-3363 PO (17:18)
[2023-01-21] MEDS ORDERED: HOME MED LIST COMPLETE! XX SCH (17:20)
[2023-01-21] MEDS ORDERED: GI COCKTAIL 50ML BTL(HYOSCYAMINE/MAALOX/LIDOCAINE VISCOUS)(1:3:1) PO ONE (19:40)
[2023-01-21] MEDS ORDERED: ACETAMINOPHEN TAB 650MG DOSE (2X325MG) PO PRN (22:25)
[2023-01-21] MEDS ORDERED: MOM 30ML SUSPENSION UDC PO PRN (22:25)
[2023-01-21] MEDS ORDERED: MAALOX 30 ML SUSP *UDC PO PRN (22:25)
[2023-01-21] MEDS ORDERED: OLANZapine ORAL DISINTEGRATING TAB 5MG PO PRN (22:25)
[2023-01-21] MEDS: traZODone 50 MG TAB PO PRN (23:17)
[2023-01-22 06:00] VITALS: BP 138/71
[2023-01-22] MEDS: NICOTINE 21MG/24HR 1 EA TRANSDERMAL TD SCH (08:57)
[2023-01-22] MEDS ORDERED: FAMOTIDINE 20 MG TAB PO SCH (09:00)
[2023-01-22] MEDS: FLUoxetine 20MG CAP PO SCH (10:29)
[2023-01-22 10:55] LABS: LIPASE 20 U/L (12-53)
[2023-01-22 11:11] LABS: HEPATITIS B SURFACE ANTIGEN NEGATIVE (NEGATIVE)
[2023-01-22 11:33] LABS: HEPATITIS B CORE ANTIBODY IGM NEGATIVE (NEGATIVE)
[2023-01-22] MEDS: BACTRIM 160MG/800MG DS TAB PO SCH ×2 (11:34→21:14)
[2023-01-22] MEDS: PANTOPRAZOLE 40MG TAB (PROTONIX) PO SCH (11:42)
[2023-01-22] MEDS ORDERED: GI COCKTAIL 50ML BTL(HYOSCYAMINE/MAALOX/LIDOCAINE VISCOUS)(1:3:1) PO ONE ×2 (12:00→18:00)
[2023-01-22] MEDS: AZITHROMYCIN 250MG TABLET PO SCH (12:59)
[2023-01-22] MEDS: GASTROGRAFIN SOLUTION 30ML PO SCH ×2 (14:23→14:54)
[2023-01-22] MEDS ORDERED: ISOVUE-370 76% 100ML VIAL As Ordered ONE (14:32)
[2023-01-22 17:39] VITALS: BP 144/67
[2023-01-22] MEDS ORDERED: QUEtiapine FUMARATE 25 MG TAB PO SCH (21:00)
[2023-01-22] MEDS: traZODone 50 MG TAB PO PRN (21:14)
[2023-01-23 07:50] LABS: CHOLESTEROL RISK RATIO 4.56 (<5); HDL CHOLESTEROL 32.4 MG/DL (>40); LDL CHOLESTEROL 84.6 MG/DL (<100); NON-HDL-C 115.6 MG/DL
[2023-01-23] MEDS ORDERED: E-Z-PAQUE 96% w/w SUSP 176GM BTL As Ordered ONE (08:34)
[2023-01-23] MEDS ORDERED: E-Z-HD 98% w/w 340GM SUSP BTL As Ordered ONE (08:34)
[2023-01-23] MEDS ORDERED: E-Z-GAS II EFFERVESCENT PACKET (SODIUM BICARB./CITRIC ACID/SIMETHICONE) As Ordered ONE (08:34)
[2023-01-23] MEDS ORDERED: DOCUSATE SODIUM 100MG CAPSULE PO SCH (09:00)
[2023-01-23] MEDS: NICOTINE 21MG/24HR 1 EA TRANSDERMAL TD SCH (09:00)
[2023-01-23] MEDS: BACTRIM 160MG/800MG DS TAB PO SCH (09:28)
[2023-01-23] MEDS: FLUoxetine 20MG CAP PO SCH (09:28)
[2023-01-23] MEDS: AZITHROMYCIN 250MG TABLET PO SCH (09:29)
[2023-01-23] MEDS: PANTOPRAZOLE 40MG TAB (PROTONIX) PO SCH (09:29)
[2023-01-23] MEDS ORDERED: QUET1TAB17 PO (11:38)
[2023-01-23] MEDS ORDERED: FLUO20CA22 PO (11:38)
[2023-01-23] MEDS ORDERED: TRAZ-252 PO (11:38)
[2023-01-23] MEDS ORDERED: COLA100C5 PO (11:38)
[2023-01-23] MEDS ORDERED: PANT40TA29 PO (11:38)
== END 2023-01-23 13:26 | disposition short-term general hospital (02) | DRG 754 ==
LOC: M ED 10:25 → M ED INP 21:47 → M PSY 23:15
PROVIDERS: ADMIT Psychiatry & Neurology Psychiatry; ATTEND Psychiatry & Neurology Psychiatry
DX: F32.A Depression, unspecified (principal); R45.851 Suicidal ideations; F60.89 Other specific personality disorders; J02.0 Streptococcal pharyngitis; K21.9 Gastro-esophageal reflux disease without esophagitis; R21 Rash and other nonspecific skin eruption; R74.01 Elevation of levels of liver transaminase levels; F17.210 Nicotine dependence, cigarettes, uncomplicated; Z20.822 Contact with and (suspected) exposure to COVID-19; Z62.810 Personal history of physical and sexual abuse in childhood; Z91.410 Personal history of adult physical and sexual abuse; Z79.2 Long term (current) use of antibiotics; Z79.899 Other long term (current) drug therapy; Z88.0 Allergy status to penicillin; Z88.1 Allergy status to other antibiotic agents; Z88.8 Allergy status to other drugs, medicaments and biological substances; Z91.048 Other nonmedicinal substance allergy status; Z91.040 Latex allergy status; Z91.52 Personal history of nonsuicidal self-harm; Z59.00 Homelessness unspecified

== ENCOUNTER 2023-01-23 12:11 | Observation (INO) | payer OTHER, MEDICAID ==
[~2023-01-23] VITALS: Ht 167.6 cm; Wt 92.9 kg
[~2023-01-23 12:11] MED LIST changes: +COLA100C5 PO; +PANT40TA29 PO; +UNRESOLVED CLARIFICATION ENTRY XX SCH
[2023-01-23 13:38] VITALS: BP 140/72
[2023-01-23] MEDS ORDERED: HOME MED LIST COMPLETE! XX SCH (13:55)
[2023-01-23] MEDS ORDERED: metroNIDAZOLE (FLAGYL) 500MG TABLET PO SCH (14:00)
[2023-01-23] MEDS ORDERED: NS 1,000 ML IV ONE (14:00)
[2023-01-23] MEDS: NS 1,000 ML IV SCH ×2 (15:00→23:39)
[2023-01-23 15:56] LABS: ALBUMIN 2.4 G/DL (3.2-5.2); ALKALINE PHOSPHATASE 81 U/L (46-116); ALT/SGPT 15 U/L (7.0-40); AST/SGOT 55 U/L (<34); BILIRUBIN,TOTAL 0.3 MG/DL (0.3-1.2); BLOOD UREA NITROGEN 9 MG/DL (9-23); CALCIUM LEVEL 7.8 MG/DL (8.5-10.1); CARBON DIOXIDE LEVEL 28 MMOL/L (20-31); CHLORIDE LEVEL 102 MMOL/L (98-107); CREATININE FOR GFR 0.76 MG/DL (0.55-1.30); GLOMERULAR FILTRATION RATE > 60.0 (>60); GLUCOSE, FASTING 117 MG/DL (60-100); POTASSIUM SERUM 3.6 MMOL/L (3.5-5.1); SODIUM LEVEL 136 MMOL/L (136-145); TOTAL PROTEIN 5.8 G/DL (5.7-8.2)
[2023-01-23 16:00] VITALS: BP 129/69
[2023-01-23 16:39] LABS: HEMOGLOBIN A1c 5.2 % (4.0-6.0)
[2023-01-23] MEDS: SUCRALFATE SUSP 1GM/10ML UD PO SCH ×2 (18:27→20:02)
[2023-01-23 18:45] LABS: C REACTIVE PROTEIN QUANTITATIV 3.3 MG/DL (<1.0); INR 0.88; PROTHROMBIN TIME 12.1 SECONDS (12.5-14.5)
[2023-01-23 18:46] LABS: IMMUNOGLOBULIN A 275.8 MG/DL (40-350); PARTIAL THROMBOPLASTIN TIME 28.6 SECONDS (24.8-34.2)
[2023-01-23 18:47] LABS: IMMUNOGLOBULIN G 1201 MG/DL (650-1600); IMMUNOGLOBULIN M 105.4 MG/DL (50-300)
[2023-01-23 18:57] LABS: COMPLEMENT C3 116.3 MG/DL (82.0-160.0)
[2023-01-23 19:13] LABS: HIV 1&2 SCREEN CENTAUR NEGATIVE (NEGATIVE)
[2023-01-23 20:00] VITALS: BP 135/69
[2023-01-23] MEDS: DOCUSATE SODIUM 100MG CAPSULE PO SCH (20:02)
[2023-01-23] MEDS: methylPREDNISolone 125MG 2ML VIAL IV SCH (20:03)
[2023-01-23] MEDS ORDERED: CIPROFLOXACIN 500MG TABLET PO SCH (21:00)
[2023-01-23] MEDS: HEPARIN SOD (PORCINE) 5000UNITS/ML 1ML VIAL/SYRINGE SC SCH (22:02)
[2023-01-23] MEDS: traZODone 50 MG TAB PO PRN (22:05)
[2023-01-23 23:55] VITALS: BP 115/54
[2023-01-24 04:56] VITALS: BP 112/64
[2023-01-24] MEDS: HEPARIN SOD (PORCINE) 5000UNITS/ML 1ML VIAL/SYRINGE SC SCH ×3 (05:18→21:27)
[2023-01-24] MEDS ORDERED: LIDOCAINE 1% MDV 20ML VIAL As Ordered ONE (06:44)
[2023-01-24 06:48] LABS: BASO % 0.3 % (0.0-1.0); EOS % 0.1 % (0.0-3.0); HEMOGLOBIN 11.4 g/dl (12.0-15.5); LYMPH # 1.5 10^3/uL (1.5-5.0); LYMPH % 20.5 % (24.0-44.0); MEAN CORPUSCULAR HEMOGLOBIN 29.5 pg (27.0-33.0); MEAN CORPUSCULAR HGB CONC 32.6 g/dl (32.0-36.5); MEAN CORPUSCULAR VOLUME 90.7 fl (80.0-96.0); MONO # 0.1 10^3/uL (0.0-0.8); MONO % 1.4 % (2.0-8.0); NEUTROPHILS # 5.5 10^3/uL (1.5-8.5); NEUTROPHILS % 77.1 % (36.0-66.0); PLATELET COUNT, AUTOMATED 298 10^3/uL (150-450); RED BLOOD COUNT 3.86 10^6/uL (4.00-5.40); WHITE BLOOD COUNT 7.2 10^3/uL (4.0-10.0)
[2023-01-24 07:26] VITALS: BP 118/55
[2023-01-24 07:26] LABS: ALBUMIN 2.2 G/DL (3.2-5.2); ALKALINE PHOSPHATASE 68 U/L (46-116); ALT/SGPT < 9 U/L (7.0-40); AST/SGOT 46 U/L (<34); BILIRUBIN,TOTAL 0.3 MG/DL (0.3-1.2); BLOOD UREA NITROGEN 7 MG/DL (9-23); CALCIUM LEVEL 7.4 MG/DL (8.5-10.1); CARBON DIOXIDE LEVEL 24 MMOL/L (20-31); CHLORIDE LEVEL 108 MMOL/L (98-107); CREATININE FOR GFR 0.62 MG/DL (0.55-1.30); GLOMERULAR FILTRATION RATE > 60.0 (>60); GLUCOSE, FASTING 113 MG/DL (60-100); MAGNESIUM LEVEL 1.8 MG/DL (1.8-2.4); POTASSIUM SERUM 4.9 MMOL/L (3.5-5.1); SODIUM LEVEL 139 MMOL/L (136-145); TOTAL PROTEIN 5.2 G/DL (5.7-8.2)
[2023-01-24] MEDS: NS 1,000 ML IV SCH ×3 (07:45→21:34)
[2023-01-24] MEDS: FLUoxetine 20MG CAP PO SCH (08:09)
[2023-01-24] MEDS: methylPREDNISolone 125MG 2ML VIAL IV SCH ×2 (08:09→21:27)
[2023-01-24] MEDS: PANTOPRAZOLE 40MG TAB (PROTONIX) PO SCH (08:09)
[2023-01-24] MEDS: SUCRALFATE SUSP 1GM/10ML UD PO SCH ×4 (08:09→21:27)
[2023-01-24] MEDS: DOCUSATE SODIUM 100MG CAPSULE PO SCH ×2 (08:09→21:28)
[2023-01-24] MEDS ORDERED: E-Z-PAQUE 96% w/w SUSP 176GM BTL As Ordered ONE (09:30)
[2023-01-24] MEDS ORDERED: LIDOCAINE 1% MDV 20ML VIAL SC ONE (12:10)
[2023-01-24 12:44] VITALS: BP 121/60
[2023-01-24 15:52] VITALS: BP 108/58
[2023-01-24] MEDS: LISINOPRIL *2.5 MG* TAB PO SCH (16:00)
[2023-01-24 19:50] LABS: APPEARANCE, URINE CLEAR (CLEAR); BACTERIA, URINE AUTO NEGATIVE (NEGATIVE); BILIRUBIN, URINE AUTO NEGATIVE (NEGATIVE); BLOOD, URINE BLOOD 1+ (NEGATIVE); COLOR, URINE YELLOW (YELLOW); GLUCOSE, URINE (UA) AUTO NEGATIVE (NEGATIVE); KETONE, URINE AUTO NEGATIVE (NEGATIVE); LEUKOCYTE ESTERASE, URINE AUTO NEGATIVE (NEGATIVE); NITRITE, URINE AUTO NEGATIVE (NEGATIVE); PROTEIN, URINE AUTO NEGATIVE (NEGATIVE); RBC, URINE AUTO 2 /HPF (0-3); SPECIFIC GRAVITY URINE AUTO 1.008 (1.002-1.035); SQUAMOUS EPITHELIAL CELL UR AU 5 /HPF (0-6); UROBILINOGEN, URINE AUTO 0.2 mg/dL (0.0-2.0); WBC, URINE AUTO 1 /HPF (0-3)
[2023-01-24 20:00] VITALS: BP 116/60
[2023-01-24] MEDS: QUEtiapine FUMARATE 25 MG TAB PO SCH (21:27)
[2023-01-24] MEDS: MUPIROCIN 2% OINT 22 GM TUBE TOP SCH (21:27)
[2023-01-24 23:52] VITALS: BP 127/78
[2023-01-25 03:51] VITALS: BP 116/59
[2023-01-25] MEDS: HEPARIN SOD (PORCINE) 5000UNITS/ML 1ML VIAL/SYRINGE SC SCH ×3 (06:00→21:09)
[2023-01-25] MEDS: NS 1,000 ML IV SCH (06:01)
[2023-01-25 08:00] VITALS: BP 122/66
[2023-01-25] MEDS: LISINOPRIL *2.5 MG* TAB PO SCH (08:35)
[2023-01-25] MEDS: methylPREDNISolone 125MG 2ML VIAL IV SCH (08:35)
[2023-01-25] MEDS: DOCUSATE SODIUM 100MG CAPSULE PO SCH ×2 (08:35→21:08)
[2023-01-25] MEDS: SUCRALFATE SUSP 1GM/10ML UD PO SCH ×4 (08:35→21:08)
[2023-01-25] MEDS: MUPIROCIN 2% OINT 22 GM TUBE TOP SCH ×2 (08:36→21:09)
[2023-01-25] MEDS: FLUoxetine 20MG CAP PO SCH (08:36)
[2023-01-25] MEDS: PANTOPRAZOLE 40MG TAB (PROTONIX) PO SCH (08:36)
[2023-01-25] MEDS ORDERED: COLA100C5 PO (09:05)
[2023-01-25] MEDS ORDERED: MUPI2OI TOP (09:05)
[2023-01-25] MEDS ORDERED: LISI2.5T9 PO (09:05)
[2023-01-25] MEDS ORDERED: SUCR1ORA PO (09:05)
[2023-01-25 09:28] LABS: HEMATOCRIT 33.4 % (36.0-47.0); HEMOGLOBIN 10.9 g/dl (12.0-15.5); MEAN CORPUSCULAR HEMOGLOBIN 29.9 pg (27.0-33.0); MEAN CORPUSCULAR HGB CONC 32.6 g/dl (32.0-36.5); MEAN CORPUSCULAR VOLUME 91.5 fl (80.0-96.0); PLATELET COUNT, AUTOMATED 314 10^3/uL (150-450); RED BLOOD COUNT 3.65 10^6/uL (4.00-5.40); WHITE BLOOD COUNT 12.2 10^3/uL (4.0-10.0)
[2023-01-25 10:03] LABS: ALBUMIN 2.1 G/DL (3.2-5.2); ALKALINE PHOSPHATASE 78 U/L (46-116); ALT/SGPT 13 U/L (7.0-40); AST/SGOT 54 U/L (<34); BILIRUBIN,TOTAL 0.2 MG/DL (0.3-1.2); BLOOD UREA NITROGEN 8 MG/DL (9-23); CALCIUM LEVEL 7.5 MG/DL (8.5-10.1); CARBON DIOXIDE LEVEL 25 MMOL/L (20-31); CHLORIDE LEVEL 107 MMOL/L (98-107); CREATININE FOR GFR 0.57 MG/DL (0.55-1.30); GLOMERULAR FILTRATION RATE > 60.0 (>60); GLUCOSE, FASTING 139 MG/DL (60-100); MAGNESIUM LEVEL 1.6 MG/DL (1.8-2.4); POTASSIUM SERUM 3.7 MMOL/L (3.5-5.1); SODIUM LEVEL 139 MMOL/L (136-145); TOTAL PROTEIN 5.1 G/DL (5.7-8.2)
[2023-01-25] MEDS: MAG SULF 1GM/100ML (MAG RUN) 1 GM in IV 1 EA IV SCH ×2 (11:13→12:22)
[2023-01-25 11:52] VITALS: BP 132/71
[2023-01-25 19:34] VITALS: BP 138/73
[2023-01-25] MEDS: traZODone 50 MG TAB PO PRN (21:08)
[2023-01-25] MEDS: QUEtiapine FUMARATE 25 MG TAB PO SCH (21:08)
[2023-01-26] MEDS: HEPARIN SOD (PORCINE) 5000UNITS/ML 1ML VIAL/SYRINGE SC SCH ×3 (05:32→21:10)
[2023-01-26 06:15] LABS: HEMATOCRIT 34.7 % (36.0-47.0); HEMOGLOBIN 11.2 g/dl (12.0-15.5); MEAN CORPUSCULAR HEMOGLOBIN 29.2 pg (27.0-33.0); MEAN CORPUSCULAR HGB CONC 32.3 g/dl (32.0-36.5); MEAN CORPUSCULAR VOLUME 90.4 fl (80.0-96.0); PLATELET COUNT, AUTOMATED 332 10^3/uL (150-450); RED BLOOD COUNT 3.84 10^6/uL (4.00-5.40); WHITE BLOOD COUNT 13.7 10^3/uL (4.0-10.0)
[2023-01-26 06:43] LABS: C REACTIVE PROTEIN QUANTITATIV < 0.40 MG/DL (<1.0)
[2023-01-26 06:45] LABS: ALKALINE PHOSPHATASE 63 U/L (46-116); ALT/SGPT 10 U/L (7.0-40); AST/SGOT 33 U/L (<34); BILIRUBIN,TOTAL 0.2 MG/DL (0.3-1.2); BLOOD UREA NITROGEN 7 MG/DL (9-23); CARBON DIOXIDE LEVEL 26 MMOL/L (20-31); CHLORIDE LEVEL 106 MMOL/L (98-107); CREATININE FOR GFR 0.66 MG/DL (0.55-1.30); GLOMERULAR FILTRATION RATE > 60.0 (>60); GLUCOSE, FASTING 95 MG/DL (60-100); POTASSIUM SERUM 2.9 MMOL/L (3.5-5.1); SODIUM LEVEL 141 MMOL/L (136-145); TOTAL PROTEIN 4.8 G/DL (5.7-8.2)
[2023-01-26 06:54] LABS: ERYTHROCYTE SEDIMENTATION RATE 19 mm/hr (0-20)
[2023-01-26] MEDS ORDERED: POTASSIUM CHLORIDE 10% LIQ 20MEQ/15ML UDC PO ONE ×2 (08:00→10:00)
[2023-01-26] MEDS ORDERED: KCL 10MEQ/100ML SWI (KRUN) 10 MEQ in IV 1 EA IV SCH (08:00)
[2023-01-26] MEDS: DOCUSATE SODIUM 100MG CAPSULE PO SCH ×2 (08:35→21:10)
[2023-01-26] MEDS: POTASSIUM CHLORIDE 10MEQ SR TABLET PO SCH ×2 (08:35→11:32)
[2023-01-26] MEDS: FLUoxetine 20MG CAP PO SCH (08:35)
[2023-01-26] MEDS: SUCRALFATE SUSP 1GM/10ML UD PO SCH ×4 (08:35→21:10)
[2023-01-26] MEDS: PANTOPRAZOLE 40MG TAB (PROTONIX) PO SCH (08:36)
[2023-01-26] MEDS: LISINOPRIL *2.5 MG* TAB PO SCH (08:36)
[2023-01-26] MEDS: predniSONE 20 MG TAB PO SCH (08:36)
[2023-01-26] MEDS: MUPIROCIN 2% OINT 22 GM TUBE TOP SCH ×2 (08:36→22:11)
[2023-01-26] MEDS ORDERED: ONDANSETRON 4MG TAB PO PRN (09:45)
[2023-01-26 10:37] LABS: MAGNESIUM LEVEL 1.5 MG/DL (1.8-2.4)
[2023-01-26] MEDS ORDERED: MAGNESIUM OXIDE 400MG TAB (MAG-OX) PO ONE (11:30)
[2023-01-26] MEDS: QUEtiapine FUMARATE 25 MG TAB PO SCH (21:10)
[2023-01-26] MEDS: traZODone 50 MG TAB PO PRN (21:12)
[2023-01-27] MEDS: HEPARIN SOD (PORCINE) 5000UNITS/ML 1ML VIAL/SYRINGE SC SCH ×2 (05:51→14:00)
[2023-01-27 06:00] VITALS: BP 136/68
[2023-01-27] MEDS: SUCRALFATE SUSP 1GM/10ML UD PO SCH ×2 (07:52→12:05)
[2023-01-27] MEDS: DOCUSATE SODIUM 100MG CAPSULE PO SCH (07:52)
[2023-01-27] MEDS: MUPIROCIN 2% OINT 22 GM TUBE TOP SCH (07:52)
[2023-01-27 07:53] VITALS: BP 165/85
[2023-01-27] MEDS: LISINOPRIL *2.5 MG* TAB PO SCH (07:53)
[2023-01-27] MEDS: predniSONE 20 MG TAB PO SCH (07:53)
[2023-01-27] MEDS: FLUoxetine 20MG CAP PO SCH (07:53)
[2023-01-27] MEDS: PANTOPRAZOLE 40MG TAB (PROTONIX) PO SCH (07:53)
[2023-01-27] MEDS ORDERED: PRED10TA2 PO (14:09)
[2023-01-27] MEDS ORDERED: PANT40TA29 PO (14:12)
[2023-01-28 15:09] LABS: ANTINUCLEAR ANTIBODIES DIRECT Negative (Negative)
== END 2023-01-27 14:51 | disposition home or self-care (01) ==
LOC: EEVIPCON 13:30 → INTOOBSV 13:30 → M ICU 13:30 → M PCU 23:52 → M MSPAV 01-26 18:31
PROVIDERS: ADMIT Internal Medicine; ATTEND Student in an Organized Health Care Education/Training Program
DX: K29.80 Duodenitis without bleeding (principal); K50.00 Crohn's disease of small intestine without complications; R10.13 Epigastric pain; R21 Rash and other nonspecific skin eruption; E87.20 Acidosis, unspecified; R45.851 Suicidal ideations; Z59.00 Homelessness unspecified; K21.9 Gastro-esophageal reflux disease without esophagitis; K56.1 Intussusception; R80.9 Proteinuria, unspecified; J02.0 Streptococcal pharyngitis; R74.01 Elevation of levels of liver transaminase levels; E87.8 Other disorders of electrolyte and fluid balance, not elsewhere classified; L98.9 Disorder of the skin and subcutaneous tissue, unspecified; F39 Unspecified mood [affective] disorder; F19.10 Other psychoactive substance abuse, uncomplicated; F17.210 Nicotine dependence, cigarettes, uncomplicated; Z88.0 Allergy status to penicillin; Z91.040 Latex allergy status; Z79.899 Other long term (current) drug therapy; Z91.148 Patient's other noncompliance with medication regimen for other reason; Z62.819 Personal history of unspecified abuse in childhood; Z91.419 Personal history of unspecified adult abuse
CPT/HCPCS: 11104; 36415; 74250; 80053; 81001; 82784; 83036; 83605; 83735; 84100; 85025; 85027; 85610; 85652; 85730; 86037; 86038; 86140; 86160; 86162; 86235; 86431; 86704; 87040; 87070; 87077; 87186; 87205; 87389; 87507; 87641; 88305; 96361; 96372; 96374; 96376; 97161; 97165; J2930; J3475; J7512

== ENCOUNTER 2023-02-09 19:27 | Emergency (ER) | payer MEDICAID, OTHER ==
[~2023-02-09] VITALS: Ht 167.6 cm; Wt 94.1 kg
[~2023-02-09 19:27] MED LIST changes: +LISI2.5T9 PO; +MUPI2OI TOP; +PRED10TA2 PO; +SUCR1ORA PO; -UNRESOLVED CLARIFICATION ENTRY XX SCH
[2023-02-09 19:29] VITALS: BP 126/78
[2023-02-09 21:26] LABS: BASO % 0.7 % (0.0-1.0); EOS # 0.3 10^3/uL (0.0-0.5); EOS % 5.2 % (0.0-3.0); HEMATOCRIT 36.5 % (36.0-47.0); HEMOGLOBIN 11.8 g/dl (12.0-15.5); LYMPH # 2.6 10^3/uL (1.5-5.0); LYMPH % 44.3 % (24.0-44.0); MEAN CORPUSCULAR HEMOGLOBIN 29.4 pg (27.0-33.0); MEAN CORPUSCULAR HGB CONC 32.3 g/dl (32.0-36.5); MONO # 0.4 10^3/uL (0.0-0.8); MONO % 6.9 % (2.0-8.0); NEUTROPHILS # 2.4 10^3/uL (1.5-8.5); NEUTROPHILS % 41.9 % (36.0-66.0); PLATELET COUNT, AUTOMATED 257 10^3/uL (150-450); RED BLOOD COUNT 4.01 10^6/uL (4.00-5.40); WHITE BLOOD COUNT 5.8 10^3/uL (4.0-10.0)
[2023-02-09] MEDS ORDERED: FAMOTIDINE 20MG/2ML VIAL IVP ONE (21:35)
[2023-02-09] MEDS ORDERED: NS 1,000 ML IV ONE (21:35)
[2023-02-09 21:39] LABS: LIPASE 25 U/L (12-53)
[2023-02-09 21:41] LABS: ALBUMIN 2.6 G/DL (3.2-5.2); ALKALINE PHOSPHATASE 62 U/L (46-116); ALT/SGPT < 9 U/L (7.0-40); AST/SGOT 16 U/L (<34); BILIRUBIN,DIRECT < 0.1 MG/DL (<0.4); BILIRUBIN,TOTAL 0.3 MG/DL (0.3-1.2); TOTAL PROTEIN 5.4 G/DL (5.7-8.2)
[2023-02-09] MEDS ORDERED: BACT800T5 PO (23:07)
[2023-02-10] MEDS ORDERED: BACTRIM 160MG/800MG DS TAB PO ONE
== END 2023-02-09 23:36 | disposition home or self-care (01) ==
LOC: M ED 19:27
DX: N39.0 Urinary tract infection, site not specified (principal); R11.2 Nausea with vomiting, unspecified; Z85.828 Personal history of other malignant neoplasm of skin; F41.9 Anxiety disorder, unspecified; F32.A Depression, unspecified; R56.9 Unspecified convulsions; R51.9 Headache, unspecified; F17.200 Nicotine dependence, unspecified, uncomplicated; Z88.0 Allergy status to penicillin; Z91.040 Latex allergy status; Z79.899 Other long term (current) drug therapy; Z79.52 Long term (current) use of systemic steroids
CPT/HCPCS: 36415; 80047; 80076; 81001; 83605; 83690; 84702; 85025; 87086; 96374; 99284; S0028

== ENCOUNTER 2023-02-17 21:49 | Emergency (ER) | payer OTHER ==
[~2023-02-17] VITALS: Ht 167.6 cm; Wt 91.3 kg
[2023-02-17] MEDS ORDERED: NS 1,000 ML IV ONE (21:50)
[2023-02-17 22:22] LABS: BASO # 0.1 10^3/uL (0.0-0.2); BASO % 0.4 % (0.0-1.0); EOS # 0.2 10^3/uL (0.0-0.5); EOS % 1.3 % (0.0-3.0); HEMATOCRIT 36.5 % (36.0-47.0); HEMOGLOBIN 12.1 g/dl (12.0-15.5); LYMPH % 31.3 % (24.0-44.0); MEAN CORPUSCULAR HGB CONC 33.2 g/dl (32.0-36.5); MEAN CORPUSCULAR VOLUME 90.6 fl (80.0-96.0); MONO # 0.5 10^3/uL (0.0-0.8); MONO % 3.9 % (2.0-8.0); NEUTROPHILS # 7.9 10^3/uL (1.5-8.5); NEUTROPHILS % 62.5 % (36.0-66.0); PLATELET COUNT, AUTOMATED 276 10^3/uL (150-450); RED BLOOD COUNT 4.03 10^6/uL (4.00-5.40); WHITE BLOOD COUNT 12.7 10^3/uL (4.0-10.0)
[2023-02-17 22:41] LABS: ETHYL ALCOHOL (ETHANOL) 0.068 % (0.000-0.010)
[2023-02-17 22:43] LABS: ACETAMINOPHEN LEVEL < 2.0 UG/ML (10.0-20.0); ALKALINE PHOSPHATASE 70 U/L (46-116); ALT/SGPT < 9 U/L (7.0-40); AST/SGOT 16 U/L (<34); BILIRUBIN,DIRECT < 0.1 MG/DL (<0.4); BILIRUBIN,TOTAL 0.2 MG/DL (0.3-1.2); BLOOD UREA NITROGEN 11 MG/DL (9-23); CALCIUM LEVEL 7.7 MG/DL (8.5-10.1); CARBON DIOXIDE LEVEL 26 MMOL/L (20-31); CHLORIDE LEVEL 108 MMOL/L (98-107); CREATININE FOR GFR 0.73 MG/DL (0.55-1.30); GLOMERULAR FILTRATION RATE > 60.0 (>60); GLUCOSE, FASTING 118 MG/DL (60-100); POTASSIUM SERUM 3.9 MMOL/L (3.5-5.1); SALICYLATE LEVEL < 3.0 MG/DL (<30); SODIUM LEVEL 141 MMOL/L (136-145); TOTAL PROTEIN 5.9 G/DL (5.7-8.2)
[2023-02-17 22:45] LABS: THYROID STIMULATING HORMONE 3.733 uIU/ML (0.55-4.78)
[2023-02-17 22:46] LABS: CPK CREATINE PHOSPHOKINASE 40 U/L (34-145)
[2023-02-17 22:47] LABS: OSMOLALITY SERUM 305 MOSM/KG (275-295)
[2023-02-17 23:07] LABS: AMPHETAMINES LEVEL URINE NEGATIVE (NEGATIVE); BARBITURATES URINE NEGATIVE (NEGATIVE); BENZODIAZEPINES URINE NEGATIVE (NEGATIVE); COCAINE METABOLITE URINE NEGATIVE (NEGATIVE); METHADONE URINE NEGATIVE (NEGATIVE); OPIATES URINE NEGATIVE (NEGATIVE); PHENCYCLIDINE URINE NEGATIVE (NEGATIVE)
[2023-02-17 23:08] LABS: CANNABINOIDS URINE POSITIVE (NEGATIVE)
[2023-02-18 00:15] VITALS: BP 126/76
== END 2023-02-18 00:43 | disposition home or self-care (01) ==
LOC: M ED 21:49 → EDBD 21:49 → M ED 02-18 00:43
DX: F19.10 Other psychoactive substance abuse, uncomplicated (principal); Z88.0 Allergy status to penicillin; Z91.040 Latex allergy status; Z79.899 Other long term (current) drug therapy; Z79.52 Long term (current) use of systemic steroids

== ENCOUNTER 2023-03-24 14:48 | Emergency (ER) | payer OTHER ==
[~2023-03-24] VITALS: Ht 167.6 cm; Wt 96.3 kg
[2023-03-24 14:57] VITALS: BP 132/73; TEMP 98.6; O2SAT 97
== END 2023-03-24 18:31 | disposition left against medical advice (07) ==
LOC: M ED 14:48
DX: Z04.41 Encounter for examination and observation following alleged adult rape (principal); I10 Essential (primary) hypertension; K21.9 Gastro-esophageal reflux disease without esophagitis; F17.200 Nicotine dependence, unspecified, uncomplicated; Z88.0 Allergy status to penicillin; Z91.040 Latex allergy status; Z79.899 Other long term (current) drug therapy

== ENCOUNTER 2023-05-02 19:38 | Emergency (ER) | payer OTHER ==
[~2023-05-02] VITALS: Ht 167.6 cm; Wt 99.5 kg
[2023-05-02 19:40] VITALS: BP 133/76; TEMP 98.3; O2SAT 98
[2023-05-02 20:21] LABS: URINE PREG TEST POSITIVE (NEGATIVE)
== END 2023-05-02 20:29 | disposition left against medical advice (07) ==
LOC: M ED 19:38
DX: R10.9 Unspecified abdominal pain (principal); Z53.21 Procedure and treatment not carried out due to patient leaving prior to being seen by health care provider

== ENCOUNTER 2023-11-05 23:52 | Outpatient (CLI) | payer OTHER ==
[~2023-11-05] VITALS: Ht 167.6 cm; Wt 123.6 kg
[2023-11-06 00:17] VITALS: BP 117/59; O2SAT 97
[2023-11-06 00:32] VITALS: BP 129/62
[2023-11-06 00:46] VITALS: BP 126/61
[2023-11-06 01:01] VITALS: BP 113/53; O2SAT 96
[2023-11-06 01:08] LABS: HEMATOCRIT 29.7 % (36.0-47.0); HEMOGLOBIN 9.1 g/dl (12.0-15.5); MEAN CORPUSCULAR HEMOGLOBIN 25.6 pg (27.0-33.0); MEAN CORPUSCULAR HGB CONC 30.6 g/dl (32.0-36.5); MEAN CORPUSCULAR VOLUME 83.7 fl (80.0-96.0); PLATELET COUNT, AUTOMATED 268 10^3/uL (150-450); RED BLOOD COUNT 3.55 10^6/uL (4.00-5.40); WHITE BLOOD COUNT 12.8 10^3/uL (4.0-10.0)
[2023-11-06 01:36] LABS: ALBUMIN 2.5 G/DL (3.2-5.2); ALKALINE PHOSPHATASE 122 U/L (46-116); ALT/SGPT < 9 U/L (7.0-40); AST/SGOT 11 U/L (<34); BILIRUBIN,TOTAL 0.2 MG/DL (0.3-1.2); BLOOD UREA NITROGEN 8 MG/DL (9-23); CALCIUM LEVEL 8.3 MG/DL (8.5-10.1); CARBON DIOXIDE LEVEL 22 MMOL/L (20-31); CHLORIDE LEVEL 106 MMOL/L (98-107); CREATININE FOR GFR 0.44 MG/DL (0.55-1.30); GLOMERULAR FILTRATION RATE > 60.0 (>60); GLUCOSE, FASTING 157 MG/DL (60-100); POTASSIUM SERUM 3.9 MMOL/L (3.5-5.1); SODIUM LEVEL 136 MMOL/L (136-145); TOTAL PROTEIN 5.7 G/DL (5.7-8.2)
[2023-11-06] MEDS ORDERED: HUMU1INJ2 SC (02:09)
[2023-11-06] MEDS ORDERED: INSUHUMDS SC (02:09)
[2023-11-06] MEDS ORDERED: HOME MED LIST COMPLETE! XX SCH (02:10)
== END 2023-11-06 02:58 | disposition home or self-care (01) ==
LOC: M LDO 23:52
PROVIDERS: ATTEND Advanced Practice Midwife
DX: O26.893 Other specified pregnancy related conditions, third trimester (principal); R42 Dizziness and giddiness; O99.353 Diseases of the nervous system complicating pregnancy, third trimester; G40.919 Epilepsy, unspecified, intractable, without status epilepticus; O24.113 Pre-existing type 2 diabetes mellitus, in pregnancy, third trimester; Z79.4 Long term (current) use of insulin; O99.213 Obesity complicating pregnancy, third trimester; E66.9 Obesity, unspecified; Z87.59 Personal history of other complications of pregnancy, childbirth and the puerperium; O99.343 Other mental disorders complicating pregnancy, third trimester; F41.8 Other specified anxiety disorders; Z3A.32 32 weeks gestation of pregnancy
CPT/HCPCS: 36415; 59025; 76815; 76819; 76820; 80053; 85027; G0463

== ENCOUNTER 2023-11-09 00:43 | Outpatient (CLI) | payer OTHER ==
[~2023-11-09] VITALS: Ht 167.6 cm; Wt 125.1 kg
[~2023-11-09 00:43] MED LIST changes: +HUMU1INJ2 SC; +INSUHUMDS SC
[2023-11-09 01:49] LABS: APPEARANCE, URINE MANUAL CLEAR (CLEAR); COLOR, URINE MANUAL YELLOW (YELLOW)
[2023-11-09 01:50] LABS: BILIRUBIN, URINE MANUAL NEGATIVE (NEGATIVE); BLOOD URINE MANUAL TRACE (NEGATIVE); GLUCOSE, URINE (UA) MANUAL 3+(500 MG/DL) mg/dL (NEGATIVE); KETONE, URINE MANUAL NEGATIVE (NEGATIVE); LEUKOCYTE ESTERASE, URINE MAN TRACE (NEGATIVE); NITRITE, URINE MANUAL POSITIVE (NEGATIVE); UROBILINOGEN, URINE MANUAL NORMAL (NORMAL)
[2023-11-09 01:51] LABS: PROTEIN, URINE MANUAL TRACE mg/dL (NEGATIVE)
[2023-11-09 01:54] LABS: HEMATOCRIT 31.7 % (36.0-47.0); HEMOGLOBIN 9.8 g/dl (12.0-15.5); MEAN CORPUSCULAR HEMOGLOBIN 25.9 pg (27.0-33.0); MEAN CORPUSCULAR HGB CONC 30.9 g/dl (32.0-36.5); MEAN CORPUSCULAR VOLUME 83.9 fl (80.0-96.0); PLATELET COUNT, AUTOMATED 254 10^3/uL (150-450); RED BLOOD COUNT 3.78 10^6/uL (4.00-5.40); WHITE BLOOD COUNT 15.4 10^3/uL (4.0-10.0)
[2023-11-09 02:02] LABS: SQUAMOUS EPITHELIAL CELL URINE MOD AMOUNT /hpf (SMALL AMT)
[2023-11-09 02:03] LABS: BACTERIA, URINE MOD AMOUNT; HYALINE CAST, URINE NONE SEEN /lpf (0-1); MUCUS, URINE SMALL AMOUNT (NEGATIVE)
[2023-11-09 02:21] LABS: ALBUMIN 2.5 G/DL (3.2-5.2); ALKALINE PHOSPHATASE 133 U/L (46-116); ALT/SGPT < 9 U/L (7.0-40); AST/SGOT 16 U/L (<34); BILIRUBIN,TOTAL 0.3 MG/DL (0.3-1.2); BLOOD UREA NITROGEN 8 MG/DL (9-23); CALCIUM LEVEL 8.1 MG/DL (8.5-10.1); CARBON DIOXIDE LEVEL 22 MMOL/L (20-31); CHLORIDE LEVEL 106 MMOL/L (98-107); CREATININE FOR GFR 0.56 MG/DL (0.55-1.30); GLOMERULAR FILTRATION RATE > 60.0 (>60); GLUCOSE, FASTING 161 MG/DL (60-100); POTASSIUM SERUM 3.7 MMOL/L (3.5-5.1); SODIUM LEVEL 137 MMOL/L (136-145); TOTAL PROTEIN 5.9 G/DL (5.7-8.2)
[2023-11-09] MEDS: NITROFURANTOIN (MACROBID) 100 MG CAP PO SCH (03:50)
[2023-11-09] MEDS ORDERED: MACR100C43 PO (09:04)
[2023-11-09] MEDS ORDERED: HUMU1INJ2 SC (16:23)
[2023-11-09] MEDS ORDERED: INSUHUMDS SC ×2 (16:23)
[2023-11-10] MEDS ORDERED: METF500T13 PO (14:18)
== END 2023-11-09 04:10 | disposition home or self-care (01) ==
LOC: M LDO 00:43
PROVIDERS: ATTEND Obstetrics & Gynecology
DX: O26.893 Other specified pregnancy related conditions, third trimester (principal); R25.2 Cramp and spasm; Z3A.33 33 weeks gestation of pregnancy; O99.333 Smoking (tobacco) complicating pregnancy, third trimester; F17.290 Nicotine dependence, other tobacco product, uncomplicated; O99.343 Other mental disorders complicating pregnancy, third trimester; F32.A Depression, unspecified; F41.9 Anxiety disorder, unspecified; O24.113 Pre-existing type 2 diabetes mellitus, in pregnancy, third trimester; Z88.0 Allergy status to penicillin; Z88.8 Allergy status to other drugs, medicaments and biological substances; Z91.040 Latex allergy status; Z91.048 Other nonmedicinal substance allergy status
CPT/HCPCS: 59025; 76816; 76820; 80053; 81000; 82731; 85027; G0463

== ENCOUNTER 2023-11-09 14:56 | Inpatient (IN) | payer OTHER ==
[~2023-11-09] VITALS: Ht 167.6 cm; Wt 125.1 kg
[2023-11-09] MEDS ORDERED: LR 1,000 ML IV SCH (15:15)
[2023-11-09] MEDS ORDERED: OXYTOCIN 30UNITS IN 0.9% NaCl 500ML IV BAG As Ordered ONE (15:19)
[2023-11-09] MEDS ORDERED: OXYTOCIN INJ 10UNITS/ML 1ML VIAL As Ordered ONE (15:19)
[2023-11-09] MEDS: OXYTOCIN INJ 10UNITS/ML 1ML VIAL IM PRN (15:22)
[2023-11-09] MEDS ORDERED: ACETAMINOPHEN TAB 650MG DOSE (2X325MG) PO PRN (15:40)
[2023-11-09] MEDS ORDERED: IBUPROFEN 800 MG TAB PO PRN (15:40)
[2023-11-09] MEDS ORDERED: DIBUCAINE 1% OINTMENT 30GM TOP PRN (15:40)
[2023-11-09] MEDS ORDERED: RHOGAM 300MCG (1500IU) INJ IM SCH (15:40)
[2023-11-09] MEDS ORDERED: ACETAMINOPHEN 500 MG TAB PO PRN (15:40)
[2023-11-09] MEDS ORDERED: DOCUSATE SODIUM 100MG CAPSULE PO PRN (15:40)
[2023-11-09] MEDS ORDERED: IBUPROFEN 600MG TAB PO PRN (15:40)
[2023-11-09] MEDS ORDERED: METHYLERGONOVINE MALEATE 0.2 MG TAB PO PRN (15:40)
[2023-11-09] MEDS: OXYTOCIN DRIP 30 UNITS in IV 1 EA IV SCH (16:02)
[2023-11-09 16:15] LABS: HEMATOCRIT 30.9 % (36.0-47.0); HEMOGLOBIN 9.7 g/dl (12.0-15.5); MEAN CORPUSCULAR HEMOGLOBIN 26.1 pg (27.0-33.0); MEAN CORPUSCULAR HGB CONC 31.4 g/dl (32.0-36.5); MEAN CORPUSCULAR VOLUME 83.3 fl (80.0-96.0); PLATELET COUNT, AUTOMATED 252 10^3/uL (150-450); RED BLOOD COUNT 3.71 10^6/uL (4.00-5.40); WHITE BLOOD COUNT 18.2 10^3/uL (4.0-10.0)
[2023-11-09] MEDS ORDERED: HUMU1INJ2 SC (16:23)
[2023-11-09] MEDS ORDERED: INSUHUMDS SC ×2 (16:23)
[2023-11-09] MEDS ORDERED: HOME MED LIST COMPLETE! XX SCH (16:25)
[2023-11-09 16:26] LABS: ALBUMIN 2.6 G/DL (3.2-5.2); ALKALINE PHOSPHATASE 139 U/L (46-116); ALT/SGPT < 9 U/L (7.0-40); AST/SGOT 17 U/L (<34); BILIRUBIN,TOTAL 0.4 MG/DL (0.3-1.2); BLOOD UREA NITROGEN 6 MG/DL (9-23); CALCIUM LEVEL 8.1 MG/DL (8.5-10.1); CARBON DIOXIDE LEVEL 21 MMOL/L (20-31); CHLORIDE LEVEL 109 MMOL/L (98-107); CREATININE FOR GFR 0.52 MG/DL (0.55-1.30); GLOMERULAR FILTRATION RATE > 60.0 (>60); GLUCOSE, FASTING 145 MG/DL (60-100); POTASSIUM SERUM 3.9 MMOL/L (3.5-5.1); SODIUM LEVEL 139 MMOL/L (136-145); TOTAL PROTEIN 6.1 G/DL (5.7-8.2)
[2023-11-09 16:45] VITALS: BP 142/58
[2023-11-09 17:15] VITALS: BP 139/72
[2023-11-09 17:19] LABS: AMPHETAMINES URINE REFLEX NEGATIVE (NEGATIVE); BARBITURATES URINE REFLEX NEGATIVE (NEGATIVE); BENZODIAZEPINES URINE REFLEX NEGATIVE (NEGATIVE); CANNABINOIDS URINE REFLEX NEGATIVE (NEGATIVE); COCAINE METABOLITE URINE REFLE NEGATIVE (NEGATIVE); METHADONE URINE REFLEX NEGATIVE (NEGATIVE); OPIATES URINE REFLEX NEGATIVE (NEGATIVE); PHENCYCLIDINE URINE REFLEX NEGATIVE (NEGATIVE)
[2023-11-09 18:00] VITALS: BP 144/63; O2SAT 18
[2023-11-10 06:02] VITALS: BP 131/64; O2SAT 97
[2023-11-10] MEDS: PRENATAL VITAMINS CHEWABLE TABLET PO SCH (08:19)
[2023-11-10] MEDS ORDERED: METF500T13 PO (14:18)
[2023-11-11] MEDS ORDERED: BOOSTRIX VACCINE (TETANUS/DIPHTH/ACEL. PERTUSSIS) 0.5ML SYR IM.IMMUN ONE (09:00)
[2023-11-11] MEDS ORDERED: MEASLES,MUMPS,RUBELLA VACCINE INJ (MMR-II) SC.IMMUN ONE (09:00)
[2023-11-11] MEDS ORDERED: INFLUENZA QUADRIVALENT PF VACCINE 0.5ML SYRINGE IM.IMMUN ONE (09:00)
== END 2023-11-10 15:45 | disposition home or self-care (01) | DRG 560 ==
LOC: M LDO 14:56 → M LDI 15:18 → M OBS 18:00
PROVIDERS: ADMIT Obstetrics & Gynecology; ATTEND Obstetrics & Gynecology
PROC: 10E0XZZ Delivery of Products of Conception, External Approach (ICD-10-PCS; principal; 2023-11-09)
DX: O62.3 Precipitate labor (principal); O69.81X0 Labor and delivery complicated by cord around neck, without compression, not applicable or unspecified; F17.290 Nicotine dependence, other tobacco product, uncomplicated; Z37.0 Single live birth; Z3A.33 33 weeks gestation of pregnancy; O99.334 Smoking (tobacco) complicating childbirth

== ENCOUNTER 2023-11-25 04:09 | Emergency (ER) | payer OTHER ==
[~2023-11-25] VITALS: Ht 170.2 cm; Wt 104.5 kg
[2023-11-25 05:40] VITALS: BP 123/79; TEMP 97.3; O2SAT 99
== END 2023-11-25 06:19 | disposition left against medical advice (07) ==
LOC: M ED 04:09 → EDBD 04:09 → M ED 06:19
DX: Z53.21 Procedure and treatment not carried out due to patient leaving prior to being seen by health care provider (principal)

== ENCOUNTER → 2023-12-04 | Outpatient (CLI) | payer MEDICAID | LOC: M OUTALCOH 07:23 | PROVIDERS: ATTEND Psychiatry & Neurology Psychiatry | DX: Z03.89 Encounter for observation for other suspected diseases and conditions ruled out (principal) ==

== ENCOUNTER 2023-12-06 04:54 | Inpatient (IN) | payer MEDICAID, OTHER ==
[2023-12-06] VITALS (29 sets, daily range): BP systolic 87–128; BP diastolic 39–73; TEMP 98–100.9; O2SAT 95–100
[~2023-12-06] VITALS: Ht 167.6 cm; Wt 113.9 kg
[2023-12-06] MEDS: LORazepam 2 MG/ML 1ML VIAL IV STA ×2 (06:03→10:30)
[2023-12-06] MEDS: ONDANSETRON 4MG 2ML VIAL IV ONE (06:03)
[2023-12-06 06:04] LABS: VENOUS PH 7.377 UNITS (7.330-7.430)
[2023-12-06] MEDS: NS 1,000 ML IV ONE ×3 (06:04→09:57)
[2023-12-06 06:05] LABS: VENOUS BASE EXCESS -1.1 (-2.0-2.0); VENOUS O2 SATURATION 96.2 % (60.0-80.0); VENOUS PARTIAL PRESSURE CO2 41.8 mmHg (38.0-50.0); VENOUS PARTIAL PRESSURE O2 92.8 mmHg (30.0-50.0); VENOUS STANDARD HCO3 23.5 MMOL/L; VENOUS TOTAL CO2 25.3 MMOL/L (24.0-28.0)
[2023-12-06 06:09] LABS: HEMATOCRIT 39.6 % (36.0-47.0); HEMOGLOBIN 12.2 g/dl (12.0-15.5); MEAN CORPUSCULAR HEMOGLOBIN 25.6 pg (27.0-33.0); MEAN CORPUSCULAR HGB CONC 30.8 g/dl (32.0-36.5); MEAN CORPUSCULAR VOLUME 83.2 fl (80.0-96.0); PLATELET COUNT, AUTOMATED 370 10^3/uL (150-450); RED BLOOD COUNT 4.76 10^6/uL (4.00-5.40); WHITE BLOOD COUNT 9.2 10^3/uL (4.0-10.0)
[2023-12-06 07:29] LABS: AMPHETAMINES LEVEL URINE NEGATIVE (NEGATIVE); BARBITURATES URINE NEGATIVE (NEGATIVE); BENZODIAZEPINES URINE NEGATIVE (NEGATIVE); COCAINE METABOLITE URINE NEGATIVE (NEGATIVE); METHADONE URINE NEGATIVE (NEGATIVE); OPIATES URINE NEGATIVE (NEGATIVE)
[2023-12-06 07:30] LABS: CANNABINOIDS URINE NEGATIVE (NEGATIVE); PHENCYCLIDINE URINE NEGATIVE (NEGATIVE)
[2023-12-06 07:31] LABS: ETHYL ALCOHOL (ETHANOL) 0.276 % (0.000-0.010)
[2023-12-06 07:33] LABS: ALBUMIN 3.8 G/DL (3.2-5.2); ALKALINE PHOSPHATASE 109 U/L (46-116); ALT/SGPT < 9 U/L (7.0-40); AST/SGOT 34 U/L (<34); BILIRUBIN,DIRECT < 0.1 MG/DL (<0.4); BILIRUBIN,TOTAL 0.3 MG/DL (0.3-1.2); BLOOD UREA NITROGEN 9 MG/DL (9-23); CALCIUM LEVEL 8.5 MG/DL (8.5-10.1); CARBON DIOXIDE LEVEL 24 MMOL/L (20-31); CHLORIDE LEVEL 110 MMOL/L (98-107); CREATININE FOR GFR 0.69 MG/DL (0.55-1.30); GLOMERULAR FILTRATION RATE > 60.0 (>60); GLUCOSE, FASTING 101 MG/DL (60-100); POTASSIUM SERUM 3.8 MMOL/L (3.5-5.1); SALICYLATE LEVEL < 3.0 MG/DL (<30); SODIUM LEVEL 145 MMOL/L (136-145); TOTAL PROTEIN 7.5 G/DL (5.7-8.2)
[2023-12-06 07:35] LABS: THYROID STIMULATING HORMONE 1.651 uIU/ML (0.55-4.78)
[2023-12-06 07:45] LABS: HCG, SERUM QUALITATIVE NEGATIVE (NEGATIVE)
[2023-12-06] MEDS ORDERED: MED REC IN PROGRESS XX SCH (08:25)
[2023-12-06] MEDS: PHENYTOIN INJection 1,000 MG in NS 100 ML IV ONE (09:33)
[2023-12-06] MEDS: NOREPINEPHRINE 4MG IN D5 250ML 4 MG in IV 1 EA IV SCH (10:00)
[2023-12-06] MEDS ORDERED: ATROPINE SULF 0.4 MG/ML 1ML VIAL As Ordered ONE (10:20)
[2023-12-06] MEDS: ATROPINE SULF 0.4 MG/ML 1ML VIAL IV STA (10:31)
[2023-12-06] MEDS ORDERED: MIDAZOLAM INJ 2MG/2ML VIAL As Ordered ONE (10:39)
[2023-12-06 10:45] LABS: ABG BASE EXCESS -2.7 (-2.0-2.0); ABG HCO3 22.3 MMOL/L (22.0-26.0); ABG O2 SATURATION 97.3 % (95.0-99.0); ABG PARTIAL PRESSURE CO2 39.4 mmHg (35.0-45.0); ABG PARTIAL PRESSURE O2 109.2 mmHg (75.0-100.0); ABG STANDARD HCO3 22.2 MMOL/L. (22.0-26.0); ABG TOTAL CO2 23.5 MMOL/L (22.0-29.0)
[2023-12-06] MEDS ORDERED: propofoL 200 MG/20 ML VIAL ONE (10:45)
[2023-12-06] MEDS ORDERED: ETOMIDATE INJ 20MG/10ML VIAL ONE (10:45)
[2023-12-06] MEDS ORDERED: ROCURONIUM BROMIDE 50MG/5ML VIAL ONE (10:45)
[2023-12-06] MEDS ORDERED: PROPOFOL 1,000 MG/100 ML VIAL As Ordered ONE (10:47)
[2023-12-06 11:00] LABS: CK-MB VALUE MASS < 1.0 NG/ML (<3.6)
[2023-12-06] MEDS: propofoL 1,000 MG in IV 1 EA IV SCH (11:09)
[2023-12-06 11:12] LABS: CPK CREATINE PHOSPHOKINASE 67 U/L (34-145); MB/CK RELATIVE INDEX 1.49 (< OR =4)
[2023-12-06] MEDS ORDERED: NOREPINEPHRINE 4MG IN D5 250ML 4 MG in IV 1 EA IV SCH (11:15)
[2023-12-06] MEDS ORDERED: MIDAZOLAM 100MG/100ML-0.9%NACL IV ONE (11:17)
[2023-12-06] MEDS ORDERED: FENTANYL DRIP LOCK BOX KEY 1 EACH XX PRN (11:25)
[2023-12-06] MEDS: diphenhydrAMINE 50MG/ML VIAL IV STA (11:36)
[2023-12-06] MEDS: MIDAZOLAM INJ 2MG/2ML VIAL IV PRN (11:38)
[2023-12-06] MEDS: MIDAZOLAM 100MG/100ML-0.9%NACL 100 MG in IV 1 EA IV SCH (11:42)
[2023-12-06] MEDS: fentaNYL 100 MCG/2 ML INJECTION IV ONE (11:51)
[2023-12-06] MEDS: fentaNYL CITRATE/NaCl 1,000 MCG in IV 1 EA IV SCH (12:16)
[2023-12-06] MEDS ORDERED: MIDAZOLAM 5MG/ML 1ML VIAL As Ordered ONE (16:08)
[2023-12-06] MEDS ORDERED: dexmedeTOMIDine (4MCG/ML)200MCG/50ML BTL (PRECEDEX) As Ordered ONE (16:10)
[2023-12-06] MEDS: MIDAZOLAM 5MG/ML 1ML VIAL IV STA (16:10)
[2023-12-06] MEDS ORDERED: GLUCOSE 4GM CHEW TABLET PO PRN (17:15)
[2023-12-06] MEDS ORDERED: LORazepam 2 MG/ML 1ML VIAL IV PRN (17:15)
[2023-12-06] MEDS ORDERED: GLUCAGON INJ 1MG VIAL SC PRN (17:15)
[2023-12-06] MEDS ORDERED: DEXTROSE 50% 50ML SYRINGE IV PRN (17:15)
[2023-12-06 17:29] LABS: VENOUS BASE EXCESS -3.4 (-2.0-2.0); VENOUS O2 SATURATION 99.3 % (60.0-80.0); VENOUS PARTIAL PRESSURE O2 183.5 mmHg (30.0-50.0); VENOUS PH 7.347 UNITS (7.330-7.430); VENOUS STANDARD HCO3 21.6 MMOL/L; VENOUS TOTAL CO2 23.2 MMOL/L (24.0-28.0)
[2023-12-06] MEDS: INSULIN LISPRO (NovoLOG) PER UNIT SC SCH (18:00)
[2023-12-06 18:05] LABS: MAGNESIUM LEVEL 1.8 MG/DL (1.8-2.4); PHOSPHORUS LEVEL 3.6 MG/DL (2.5-4.9)
[2023-12-06] MEDS: D5W/LR 1,000 ML IV SCH (18:19)
[2023-12-06] MEDS: PANTOPRAZOLE 40MG VIAL IV SCH (18:19)
[2023-12-06] MEDS: levETIRAcetam INJection 500 MG in D5W MINI-BAG PLUS 100 ML IV SCH (20:22)
[2023-12-06] MEDS: ENOXAPARIN 40MG/0.4ML SYRINGE (J1650 PER 10MG) SC SCH (20:22)
[2023-12-07] VITALS (11 sets, daily range): BP systolic 87–120; BP diastolic 52–66; TEMP 97.9–100.4; O2SAT 92–99
[2023-12-07 05:53] LABS: ALBUMIN 2.8 G/DL (3.2-5.2); ALKALINE PHOSPHATASE 93 U/L (46-116); ALT/SGPT < 9 U/L (7.0-40); AST/SGOT 25 U/L (<34); BILIRUBIN,TOTAL 0.6 MG/DL (0.3-1.2); BLOOD UREA NITROGEN 9 MG/DL (9-23); CALCIUM LEVEL 7.2 MG/DL (8.5-10.1); CARBON DIOXIDE LEVEL 26 MMOL/L (20-31); CHLORIDE LEVEL 106 MMOL/L (98-107); CREATININE FOR GFR 0.96 MG/DL (0.55-1.30); GLOMERULAR FILTRATION RATE > 60.0 (>60); GLUCOSE, FASTING 102 MG/DL (60-100); POTASSIUM SERUM 3.7 MMOL/L (3.5-5.1); SODIUM LEVEL 139 MMOL/L (136-145); TOTAL PROTEIN 5.5 G/DL (5.7-8.2)
[2023-12-07] MEDS ORDERED: LORazepam 2 MG/ML 1ML VIAL IV PRN (12:10)
[2023-12-07] MEDS: PHENYTOIN 100MG/2ML VIAL IV ONE (13:48)
[2023-12-07] MEDS: ACETAMINOPHEN TAB 650MG DOSE (2X325MG) PO PRN (13:49)
[2023-12-07 14:14] LABS: HEMATOCRIT 30.5 % (36.0-47.0); MEAN CORPUSCULAR HEMOGLOBIN 25.5 pg (27.0-33.0); MEAN CORPUSCULAR HGB CONC 30.5 g/dl (32.0-36.5); MEAN CORPUSCULAR VOLUME 83.8 fl (80.0-96.0); PLATELET COUNT, AUTOMATED 245 10^3/uL (150-450); RED BLOOD COUNT 3.64 10^6/uL (4.00-5.40); WHITE BLOOD COUNT 7.8 10^3/uL (4.0-10.0)
[2023-12-07 14:17] LABS: HEMOGLOBIN 9.3 g/dl (12.0-15.5)
[2023-12-07] MEDS ORDERED: ACETAMINOPHEN TAB 650MG DOSE (2X325MG) PO PRN (14:35)
[2023-12-07 15:23] LABS: HEMOGLOBIN A1c 5.8 % (4.0-6.0)
[2023-12-07] MEDS: NICOTINE 21MG/24HR 1 EA TRANSDERMAL TD SCH (15:25)
[2023-12-07] MEDS ORDERED: HOME MED LIST COMPLETE! XX SCH (18:55)
[2023-12-07] MEDS: PHENYTOIN ER 100 MG CAP PO SCH (20:32)
[2023-12-08 04:50] VITALS: BP 133/72; TEMP 98.1; O2SAT 97
[2023-12-08 07:07] LABS: ALKALINE PHOSPHATASE 95 U/L (46-116); ALT/SGPT < 9 U/L (7.0-40); AST/SGOT 31 U/L (<34); BILIRUBIN,TOTAL 0.3 MG/DL (0.3-1.2); BLOOD UREA NITROGEN 6 MG/DL (9-23); CALCIUM LEVEL 7.9 MG/DL (8.5-10.1); CARBON DIOXIDE LEVEL 27 MMOL/L (20-31); CHLORIDE LEVEL 108 MMOL/L (98-107); CREATININE FOR GFR 0.69 MG/DL (0.55-1.30); GLOMERULAR FILTRATION RATE > 60.0 (>60); GLUCOSE, FASTING 91 MG/DL (60-100); POTASSIUM SERUM 3.9 MMOL/L (3.5-5.1); SODIUM LEVEL 142 MMOL/L (136-145); TOTAL PROTEIN 5.9 G/DL (5.7-8.2)
[2023-12-08 08:13] LABS: BASO % 0.5 % (0.0-1.0); EOS # 0.3 10^3/uL (0.0-0.5); EOS % 4.5 % (0.0-3.0); HEMOGLOBIN 10.7 g/dl (12.0-15.5); LYMPH # 2.4 10^3/uL (1.5-5.0); LYMPH % 40.2 % (24.0-44.0); MEAN CORPUSCULAR HEMOGLOBIN 25.8 pg (27.0-33.0); MEAN CORPUSCULAR HGB CONC 30.6 g/dl (32.0-36.5); MEAN CORPUSCULAR VOLUME 84.3 fl (80.0-96.0); MONO # 0.4 10^3/uL (0.0-0.8); MONO % 6.2 % (2.0-8.0); NEUTROPHILS # 2.9 10^3/uL (1.5-8.5); NEUTROPHILS % 48.3 % (36.0-66.0); PLATELET COUNT, AUTOMATED 246 10^3/uL (150-450); RED BLOOD COUNT 4.15 10^6/uL (4.00-5.40)
[2023-12-08] MEDS: CIPROFLOXACIN 250MG TAB PO SCH (12:09)
[2023-12-08 14:56] VITALS: BP 127/80; TEMP 97.9; O2SAT 96
[2023-12-08] MEDS ORDERED: DILA100C PO (14:56)
[2023-12-08] MEDS ORDERED: NICO21PAT TD (14:56)
[2023-12-08] MEDS ORDERED: PHEN100C PO (21:53)
== END 2023-12-08 20:41 | DRG 53 ==
LOC: M ED 04:54 → M ED INP 11:15 → ENRESERV 12:17 → M ICU 12:51 → M MSPAV 12-07 15:58
PROVIDERS: ADMIT Internal Medicine Pulmonary Disease; ATTEND Internal Medicine
PROC: 0BH17EZ Insertion of Endotracheal Airway into Trachea, Via Natural or Artificial Opening (ICD-10-PCS; principal; 2023-12-06)
PROC: 5A1935Z Respiratory Ventilation, Less than 24 Consecutive Hours (ICD-10-PCS; 2023-12-06)
DX: G40.909 Epilepsy, unspecified, not intractable, without status epilepticus (principal); J96.01 Acute respiratory failure with hypoxia; G93.41 Metabolic encephalopathy; R45.851 Suicidal ideations; I95.9 Hypotension, unspecified; I82.601 Acute embolism and thrombosis of unspecified veins of right upper extremity; F33.9 Major depressive disorder, recurrent, unspecified; Z68.41 Body mass index [BMI] 40.0-44.9, adult; D64.9 Anemia, unspecified; E66.01 Morbid (severe) obesity due to excess calories; I10 Essential (primary) hypertension; F53.0 Postpartum depression; F41.9 Anxiety disorder, unspecified; F17.200 Nicotine dependence, unspecified, uncomplicated; R50.9 Fever, unspecified; F10.20 Alcohol dependence, uncomplicated; N39.0 Urinary tract infection, site not specified; Z91.414 Personal history of adult intimate partner abuse; Z88.0 Allergy status to penicillin; Z62.819 Personal history of unspecified abuse in childhood; Z88.8 Allergy status to other drugs, medicaments and biological substances; Z91.040 Latex allergy status; Z59.01 Sheltered homelessness

== ENCOUNTER 2023-12-08 16:23 | Inpatient (IN) | payer MEDICAID, OTHER ==
[~2023-12-08] VITALS: Ht 167.6 cm; Wt 100.0 kg
[~2023-12-08 16:23] MED LIST changes: +DILA100C PO
[2023-12-08] MEDS ORDERED: MAALOX 30 ML SUSP *UDC PO PRN (16:50)
[2023-12-08] MEDS ORDERED: MOM 30ML SUSPENSION UDC PO PRN (16:50)
[2023-12-08] MEDS ORDERED: diphenhydrAMINE 25MG CAP PO PRN (16:50)
[2023-12-08] MEDS ORDERED: IBUPROFEN 400MG TAB PO PRN (16:50)
[2023-12-08] MEDS ORDERED: ACETAMINOPHEN TAB 650MG DOSE (2X325MG) PO PRN (16:50)
[2023-12-08] MEDS ORDERED: PHEN100C PO (21:53)
[2023-12-08] MEDS ORDERED: HOME MED LIST COMPLETE! XX SCH (21:55)
[2023-12-08] MEDS: AMITRIPTYLINE 25MG TABLET PO ONE (22:30)
[2023-12-08] MEDS: PHENYTOIN ER 100 MG CAP PO SCH (22:48)
[2023-12-08 23:26] VITALS: BP 145/72; TEMP 97.5; O2SAT 99
[2023-12-09 06:09] VITALS: BP 123/51; TEMP 97.6; O2SAT 97
[2023-12-09] MEDS: VENLAFAXINE **XR** 37.5 MG CAPSULE PO SCH (09:51)
[2023-12-09] MEDS: INFLUENZA QUADRIVALENT PF VACCINE 0.5ML SYRINGE IM.IMMUN ONE (09:53)
[2023-12-09] MEDS: NICOTINE 21MG/24HR 1 EA TRANSDERMAL TD SCH (12:40)
[2023-12-09 16:20] VITALS: BP 125/58; TEMP 98.1
[2023-12-09] MEDS: QUEtiapine FUMARATE 50MG TAB PO SCH (21:33)
[2023-12-09] MEDS: traZODone 50 MG TAB PO PRN (21:34)
[2023-12-10 06:21] VITALS: BP 134/70; TEMP 97.5; O2SAT 95
[2023-12-10 08:18] LABS: CHOLESTEROL RISK RATIO 4.23 (<5); HDL CHOLESTEROL 45.6 MG/DL (>40); NON-HDL-C 147.4 MG/DL
[2023-12-10 17:34] VITALS: BP 139/83; TEMP 97.4
[2023-12-10] MEDS: QUEtiapine FUMARATE 100 MG TAB PO SCH (21:37)
[2023-12-11 06:34] VITALS: BP 137/60; TEMP 98.3; O2SAT 97
[2023-12-11] MEDS ORDERED: QUET100T2 PO (10:09)
[2023-12-11] MEDS ORDERED: VENL37.598 PO (10:09)
[2023-12-11] MEDS ORDERED: PHEN100C PO (10:09)
== END 2023-12-11 11:30 | disposition home or self-care (01) | DRG 757 ==
LOC: M PSY 16:50
PROVIDERS: ADMIT Student in an Organized Health Care Education/Training Program; ATTEND Student in an Organized Health Care Education/Training Program
DX: F53.0 Postpartum depression (principal); R45.851 Suicidal ideations; F33.9 Major depressive disorder, recurrent, unspecified; E11.9 Type 2 diabetes mellitus without complications; I10 Essential (primary) hypertension; D64.9 Anemia, unspecified; F43.10 Post-traumatic stress disorder, unspecified; F17.200 Nicotine dependence, unspecified, uncomplicated; G43.909 Migraine, unspecified, not intractable, without status migrainosus; J45.909 Unspecified asthma, uncomplicated; E66.9 Obesity, unspecified; K21.9 Gastro-esophageal reflux disease without esophagitis; G47.00 Insomnia, unspecified; Z91.040 Latex allergy status; Z88.0 Allergy status to penicillin; Z88.1 Allergy status to other antibiotic agents; Z88.8 Allergy status to other drugs, medicaments and biological substances; Z79.899 Other long term (current) drug therapy; Z91.410 Personal history of adult physical and sexual abuse; Z62.810 Personal history of physical and sexual abuse in childhood; Z91.51 Personal history of suicidal behavior; Z59.00 Homelessness unspecified

== ENCOUNTER 2023-12-19 14:00 | Outpatient (RCR) | payer MEDICAID ==
[~2023-12-19 14:00] MED LIST changes: +PHEN100C PO; +QUET100T2 PO; +VENL37.598 PO
== END 2023-12-21 ==
LOC: M OUTALCOH 14:00
PROVIDERS: ATTEND Psychiatry & Neurology Psychiatry
DX: Z03.89 Encounter for observation for other suspected diseases and conditions ruled out (principal)

== ENCOUNTER 2024-01-08 11:00 | Outpatient (RCR) | payer MEDICAID ==
[2024-01-19] MEDS ORDERED: VENL37.598 PO (08:35)
[2024-01-19] MEDS ORDERED: TRAZ-252 PO (08:35)
[2024-01-19] MEDS ORDERED: QUET100T2 PO (08:35)
[2024-01-19] MEDS ORDERED: NICO1DIS12 TOP (08:35)
[2024-01-19] MEDS ORDERED: PHEN100C PO (14:27)
== END 2024-01-20 ==
LOC: M OUTALCOH 11:00
PROVIDERS: ATTEND Psychiatry & Neurology Psychiatry
DX: F15.10 Other stimulant abuse, uncomplicated (principal); Z03.89 Encounter for observation for other suspected diseases and conditions ruled out

== ENCOUNTER 2024-01-10 05:00 | Emergency (ER) | payer MEDICAID, OTHER ==
[~2024-01-10] VITALS: Ht 167.6 cm; Wt 120.0 kg
[2024-01-10] MEDS: ONDANSETRON 4MG 2ML VIAL IV ONE (05:31)
[2024-01-10] MEDS: NS 1,000 ML IV ONE (05:32)
[2024-01-10 05:53] LABS: BASO # 0.1 10^3/uL (0.0-0.2); BASO % 0.6 % (0.0-1.0); EOS # 0.4 10^3/uL (0.0-0.5); EOS % 4.3 % (0.0-3.0); HEMATOCRIT 40.4 % (36.0-47.0); HEMOGLOBIN 12.8 g/dl (12.0-15.5); LYMPH # 4.2 10^3/uL (1.5-5.0); MEAN CORPUSCULAR HEMOGLOBIN 25.7 pg (27.0-33.0); MEAN CORPUSCULAR HGB CONC 31.7 g/dl (32.0-36.5); MONO # 0.4 10^3/uL (0.0-0.8); NEUTROPHILS # 3.6 10^3/uL (1.5-8.5); NEUTROPHILS % 41.3 % (36.0-66.0); PLATELET COUNT, AUTOMATED 300 10^3/uL (150-450); RED BLOOD COUNT 4.99 10^6/uL (4.00-5.40); WHITE BLOOD COUNT 8.6 10^3/uL (4.0-10.0)
[2024-01-10 06:06] LABS: ETHYL ALCOHOL (ETHANOL) 0.219 % (0.000-0.010)
[2024-01-10 06:12] LABS: BLOOD UREA NITROGEN 5 MG/DL (9-23); CALCIUM LEVEL 8.4 MG/DL (8.5-10.1); CARBON DIOXIDE LEVEL 24 MMOL/L (20-31); CHLORIDE LEVEL 102 MMOL/L (98-107); CREATININE FOR GFR 0.65 MG/DL (0.55-1.30); GLOMERULAR FILTRATION RATE > 60.0 (>60); GLUCOSE, FASTING 143 MG/DL (60-100); MAGNESIUM LEVEL 1.6 MG/DL (1.8-2.4); POTASSIUM SERUM 5.3 MMOL/L (3.5-5.1); SODIUM LEVEL 140 MMOL/L (136-145)
[2024-01-10 09:05] VITALS: BP 117/64; TEMP 96.3; O2SAT 98
== END 2024-01-10 09:32 | disposition home or self-care (01) ==
LOC: M ED 05:00 → EDBD 05:00 → M ED 09:32
DX: F10.129 Alcohol abuse with intoxication, unspecified (principal)
CPT/HCPCS: 80048; 80180; 82077; 83735; 85025; 96374; 99284; J2405

== ENCOUNTER 2024-01-18 04:16 | Inpatient (IN) | payer OTHER ==
[2024-01-18] VITALS (26 sets, daily range): BP systolic 93–138; BP diastolic 54–78; TEMP 97.5–98.9; O2SAT 94–100
[~2024-01-18] VITALS: Ht 170.2 cm; Wt 113.0 kg
[2024-01-18 04:37] LABS: VENOUS BASE EXCESS -6.7 (-2.0-2.0); VENOUS HCO3 18.3 MMOL/L (23.0-27.0); VENOUS O2 SATURATION 97.5 % (60.0-80.0); VENOUS PARTIAL PRESSURE CO2 35.2 mmHg (38.0-50.0); VENOUS PARTIAL PRESSURE O2 106.9 mmHg (30.0-50.0); VENOUS PH 7.334 UNITS (7.330-7.430); VENOUS TOTAL CO2 19.4 MMOL/L (24.0-28.0)
[2024-01-18] MEDS ORDERED: LORazepam 2 MG/ML 1ML VIAL As Ordered ONE (04:38)
[2024-01-18 04:41] LABS: BASO % 0.4 % (0.0-1.0); EOS # 0.3 10^3/uL (0.0-0.5); EOS % 3.7 % (0.0-3.0); HEMATOCRIT 37.6 % (36.0-47.0); HEMOGLOBIN 11.8 g/dl (12.0-15.5); LYMPH # 5.3 10^3/uL (1.5-5.0); LYMPH % 59.3 % (24.0-44.0); MEAN CORPUSCULAR HEMOGLOBIN 26.4 pg (27.0-33.0); MEAN CORPUSCULAR HGB CONC 31.4 g/dl (32.0-36.5); MEAN CORPUSCULAR VOLUME 84.1 fl (80.0-96.0); MONO # 0.4 10^3/uL (0.0-0.8); MONO % 4.7 % (2.0-8.0); NEUTROPHILS # 2.8 10^3/uL (1.5-8.5); NEUTROPHILS % 31.6 % (36.0-66.0); RED BLOOD COUNT 4.47 10^6/uL (4.00-5.40); WHITE BLOOD COUNT 8.9 10^3/uL (4.0-10.0)
[2024-01-18] MEDS: LORazepam 2 MG/ML 1ML VIAL IV STA (04:41)
[2024-01-18] MEDS: MIDAZOLAM 100MG/100ML-0.9%NACL 100 MG in IV 1 EA IV SCH ×2 (04:46→09:42)
[2024-01-18] MEDS: ETOMIDATE INJ 20MG/10ML VIAL IV ONE (04:46)
[2024-01-18] MEDS: NS 1,000 ML IV ONE ×2 (04:47→07:41)
[2024-01-18] MEDS: ROCURONIUM BROMIDE 50MG/5ML VIAL IV ONE ×2 (04:47→07:41)
[2024-01-18 05:04] LABS: ABG BASE EXCESS -3.5 (-2.0-2.0); ABG HCO3 21.7 MMOL/L (22.0-26.0); ABG O2 SATURATION 98.9 % (95.0-99.0); ABG PARTIAL PRESSURE CO2 39.6 mmHg (35.0-45.0); ABG PARTIAL PRESSURE O2 159.2 mmHg (75.0-100.0); ABG STANDARD HCO3 21.6 MMOL/L. (22.0-26.0); ABG TOTAL CO2 22.9 MMOL/L (22.0-29.0); ABG pH (ARTERIAL) 7.357 UNITS (7.350-7.450)
[2024-01-18 05:05] LABS: ETHYL ALCOHOL (ETHANOL) 0.172 % (0.000-0.010)
[2024-01-18 05:06] LABS: SALICYLATE LEVEL < 3.0 MG/DL (<30)
[2024-01-18 05:07] LABS: HCG, SERUM QUALITATIVE NEGATIVE (NEGATIVE)
[2024-01-18 05:12] LABS: ALBUMIN 3.8 G/DL (3.2-5.2); ALKALINE PHOSPHATASE 97 U/L (46-116); ALT/SGPT 13 U/L (7.0-40); AST/SGOT 81 U/L (<34); BILIRUBIN,DIRECT < 0.1 MG/DL (<0.4); BILIRUBIN,TOTAL 0.3 MG/DL (0.3-1.2); BLOOD UREA NITROGEN 7 MG/DL (9-23); CALCIUM LEVEL 8.6 MG/DL (8.5-10.1); CARBON DIOXIDE LEVEL 19 MMOL/L (20-31); CHLORIDE LEVEL 102 MMOL/L (98-107); CPK CREATINE PHOSPHOKINASE 336 U/L (34-145); CREATININE FOR GFR 0.74 MG/DL (0.55-1.30); GLOMERULAR FILTRATION RATE > 60.0 (>60); GLUCOSE, FASTING 138 MG/DL (60-100); POTASSIUM SERUM 4.4 MMOL/L (3.5-5.1); SODIUM LEVEL 139 MMOL/L (136-145); THYROID STIMULATING HORMONE 2.986 uIU/ML (0.55-4.78); TOTAL PROTEIN 7.1 G/DL (5.7-8.2)
[2024-01-18 05:14] LABS: AMPHETAMINES LEVEL URINE NEGATIVE (NEGATIVE); BARBITURATES URINE NEGATIVE (NEGATIVE); BENZODIAZEPINES URINE NEGATIVE (NEGATIVE); CANNABINOIDS URINE NEGATIVE (NEGATIVE); COCAINE METABOLITE URINE NEGATIVE (NEGATIVE); METHADONE URINE NEGATIVE (NEGATIVE); OPIATES URINE NEGATIVE (NEGATIVE); PHENCYCLIDINE URINE NEGATIVE (NEGATIVE)
[2024-01-18] MEDS: PHENYTOIN INJection 1,000 MG in NS 100 ML IV ONE (05:39)
[2024-01-18] MEDS: MIDAZOLAM INJ 2MG/2ML VIAL IV PRN (06:11)
[2024-01-18] MEDS: ROCURONIUM BROMIDE 50MG/5ML VIAL IV PRN (07:13)
[2024-01-18] MEDS ORDERED: FENTANYL DRIP LOCK BOX KEY 1 EACH XX PRN (07:15)
[2024-01-18] MEDS: fentaNYL CITRATE/NaCl 1,000 MCG in IV 1 EA IV SCH (07:20)
[2024-01-18] MEDS: propofoL 1,000 MG in IV 1 EA IV SCH (07:23)
[2024-01-18] MEDS: NS 1,000 ML IV SCH (07:35)
[2024-01-18] MEDS: MIDAZOLAM 5MG/ML 1ML VIAL IV ONE (07:43)
[2024-01-18] MEDS: NOREPINEPHRINE 4MG IN D5 250ML 4 MG in IV 1 EA IV SCH (08:21)
[2024-01-18] MEDS ORDERED: LR 1,000 ML IV SCH (08:30)
[2024-01-18] MEDS: ENOXAPARIN 40MG/0.4ML SYRINGE (J1650 PER 10MG) SC SCH (08:35)
[2024-01-18 09:42] LABS: MAGNESIUM LEVEL 1.8 MG/DL (1.8-2.4); PHOSPHORUS LEVEL 3.4 MG/DL (2.5-4.9)
[2024-01-18] MEDS: MIDAZOLAM 5MG/ML 1ML VIAL IV STA (10:08)
[2024-01-18] MEDS: PHENYTOIN 100MG/2ML VIAL IV SCH (13:15)
[2024-01-18] MEDS: PANTOPRAZOLE 40MG VIAL IV SCH (13:15)
[2024-01-18] MEDS: QUEtiapine FUMARATE 100 MG TAB PO SCH (20:32)
[2024-01-18] MEDS: traZODone 50 MG TAB PO SCH (20:32)
[2024-01-19] VITALS (9 sets, daily range): BP systolic 90–119; BP diastolic 42–63; TEMP 98.4–99; O2SAT 92–97
[2024-01-19 05:59] LABS: PHENYTOIN (DILANTIN) 8.2 UG/ML (10.0-20.0)
[2024-01-19 06:03] LABS: BLOOD UREA NITROGEN 8 MG/DL (9-23); GLUCOSE, FASTING 120 MG/DL (60-100)
[2024-01-19 06:04] LABS: CARBON DIOXIDE LEVEL 26 MMOL/L (20-31); CHLORIDE LEVEL 109 MMOL/L (98-107); CREATININE FOR GFR 0.87 MG/DL (0.55-1.30); GLOMERULAR FILTRATION RATE > 60.0 (>60); POTASSIUM SERUM 3.7 MMOL/L (3.5-5.1); SODIUM LEVEL 141 MMOL/L (136-145)
[2024-01-19] MEDS: VENLAFAXINE **XR** 37.5 MG CAPSULE PO SCH (08:09)
[2024-01-19] MEDS: CALCIUM GLUCONATE 1,000 MG in D5W MINI-BAG PLUS 100 ML IV ONE (08:10)
[2024-01-19] MEDS ORDERED: NICO1DIS12 TOP (08:35)
[2024-01-19] MEDS ORDERED: TRAZ-252 PO (08:35)
[2024-01-19] MEDS ORDERED: VENL37.598 PO (08:35)
[2024-01-19] MEDS ORDERED: HOME MED LIST COMPLETE! XX SCH (08:35)
[2024-01-19] MEDS ORDERED: QUET100T2 PO (08:35)
[2024-01-19] MEDS ORDERED: PHEN100C PO (14:27)
[2024-01-19] MEDS ORDERED: PHENYTOIN ER 100 MG CAP PO SCH (21:00)
[2024-01-20] MEDS ORDERED: PANTOPRAZOLE 40MG TAB (PROTONIX) PO SCH (09:00)
== END 2024-01-19 14:41 | disposition home or self-care (01) | DRG 53 ==
LOC: M ED 04:16 → M ED INP 08:03 → M ICU 08:58
PROVIDERS: ADMIT Internal Medicine Pulmonary Disease; ATTEND Internal Medicine Pulmonary Disease
PROC: 0BH17EZ Insertion of Endotracheal Airway into Trachea, Via Natural or Artificial Opening (ICD-10-PCS; principal; 2024-01-18)
PROC: 5A1935Z Respiratory Ventilation, Less than 24 Consecutive Hours (ICD-10-PCS; 2024-01-18)
DX: G40.409 Other generalized epilepsy and epileptic syndromes, not intractable, without status epilepticus (principal); J96.01 Acute respiratory failure with hypoxia; E72.20 Disorder of urea cycle metabolism, unspecified; E87.20 Acidosis, unspecified; E11.9 Type 2 diabetes mellitus without complications; D64.9 Anemia, unspecified; I95.2 Hypotension due to drugs; Z68.41 Body mass index [BMI] 40.0-44.9, adult; E83.51 Hypocalcemia; I10 Essential (primary) hypertension; F32.A Depression, unspecified; F41.9 Anxiety disorder, unspecified; F17.200 Nicotine dependence, unspecified, uncomplicated; F43.10 Post-traumatic stress disorder, unspecified; J45.909 Unspecified asthma, uncomplicated; F10.10 Alcohol abuse, uncomplicated; K21.9 Gastro-esophageal reflux disease without esophagitis; K52.9 Noninfective gastroenteritis and colitis, unspecified; E66.9 Obesity, unspecified; Z79.899 Other long term (current) drug therapy; Z88.0 Allergy status to penicillin; Z88.1 Allergy status to other antibiotic agents; Z88.8 Allergy status to other drugs, medicaments and biological substances; Z91.040 Latex allergy status

== ENCOUNTER → 2024-02-03 | Outpatient (CLI) | payer MEDICAID, OTHER ==
[~2024-02-03] MED LIST changes: +NICO1DIS12 TOP
== END ==
LOC: M PLAIMG 08:27
PROVIDERS: ATTEND Physician Assistant
DX: S82.61XA Displaced fracture of lateral malleolus of right fibula, initial encounter for closed fracture (principal); Y93.9 Activity, unspecified; Y92.9 Unspecified place or not applicable

== ENCOUNTER 2024-02-10 04:49 | Inpatient (IN) | payer OTHER ==
[2024-02-10] VITALS (16 sets, daily range): BP systolic 80–136; BP diastolic 46–85; TEMP 97.1–97.8; O2SAT 96–100
[~2024-02-10] VITALS: Ht 170.2 cm; Wt 114.6 kg
[2024-02-10] MEDS ORDERED: LORazepam 2 MG/ML 1ML VIAL As Ordered ONE (04:52)
[2024-02-10] MEDS: LORazepam 2 MG/ML 1ML VIAL IV PRN (05:00)
[2024-02-10] MEDS: ETOMIDATE INJ 20MG/10ML VIAL IV STA (05:00)
[2024-02-10] MEDS: ROCURONIUM BROMIDE 50MG/5ML VIAL IV STA (05:01)
[2024-02-10] MEDS ORDERED: PROPOFOL 1,000 MG/100 ML VIAL As Ordered ONE (05:02)
[2024-02-10] MEDS ORDERED: ROCURONIUM BROMIDE 50MG/5ML VIAL IV PRN (05:10)
[2024-02-10] MEDS: propofoL 1,000 MG in IV 1 EA IV SCH ×2 (05:14→09:08)
[2024-02-10 05:25] LABS: IONIZED CALCIUM 4.5 MG/DL (4.5-5.3)
[2024-02-10 05:32] LABS: APPEARANCE, URINE CLEAR (CLEAR); BACTERIA, URINE AUTO NEGATIVE (NEGATIVE); BILIRUBIN, URINE AUTO NEGATIVE (NEGATIVE); BLOOD, URINE BLOOD 1+ (NEGATIVE); COLOR, URINE COLORLESS (YELLOW); GLUCOSE, URINE (UA) AUTO 1+ mg/dL (NEGATIVE); KETONE, URINE AUTO NEGATIVE (NEGATIVE); LEUKOCYTE ESTERASE, URINE AUTO NEGATIVE (NEGATIVE); NITRITE, URINE AUTO NEGATIVE (NEGATIVE); PROTEIN, URINE AUTO NEGATIVE (NEGATIVE); RBC, URINE AUTO 0 /HPF (0-3); SPECIFIC GRAVITY URINE AUTO 1.003 (1.002-1.035); SQUAMOUS EPITHELIAL CELL UR AU 0 /HPF (0-6); UROBILINOGEN, URINE AUTO 0.2 mg/dL (0.0-2.0); WBC, URINE AUTO 0 /HPF (0-3)
[2024-02-10 05:35] LABS: BASO % 0.4 % (0.0-1.0); EOS # 0.1 10^3/uL (0.0-0.5); EOS % 1.7 % (0.0-3.0); HEMATOCRIT 37.3 % (36.0-47.0); HEMOGLOBIN 11.9 g/dl (12.0-15.5); LYMPH # 2.8 10^3/uL (1.5-5.0); LYMPH % 36.6 % (24.0-44.0); MEAN CORPUSCULAR HEMOGLOBIN 26.8 pg (27.0-33.0); MEAN CORPUSCULAR HGB CONC 31.9 g/dl (32.0-36.5); MONO # 0.4 10^3/uL (0.0-0.8); MONO % 5.8 % (2.0-8.0); NEUTROPHILS # 4.2 10^3/uL (1.5-8.5); NEUTROPHILS % 55.4 % (36.0-66.0); PLATELET COUNT, AUTOMATED 398 10^3/uL (150-450); RED BLOOD COUNT 4.44 10^6/uL (4.00-5.40); WHITE BLOOD COUNT 7.6 10^3/uL (4.0-10.0)
[2024-02-10 06:01] LABS: ETHYL ALCOHOL (ETHANOL) 0.191 % (0.000-0.010)
[2024-02-10 06:17] LABS: ALBUMIN 3.8 G/DL (3.2-5.2); ALKALINE PHOSPHATASE 103 U/L (46-116); ALT/SGPT < 9 U/L (7.0-40); AST/SGOT 37 U/L (<34); BILIRUBIN,DIRECT < 0.1 MG/DL (<0.4); BILIRUBIN,TOTAL 0.2 MG/DL (0.3-1.2); BLOOD UREA NITROGEN 7 MG/DL (9-23); CALCIUM LEVEL 8.8 MG/DL (8.5-10.1); CARBON DIOXIDE LEVEL 27 MMOL/L (20-31); CHLORIDE LEVEL 108 MMOL/L (98-107); GLOMERULAR FILTRATION RATE > 60.0 (>60); GLUCOSE, FASTING 147 MG/DL (60-100); MAGNESIUM LEVEL 1.7 MG/DL (1.8-2.4); PHOSPHORUS LEVEL 3.4 MG/DL (2.5-4.9); POTASSIUM SERUM 4.1 MMOL/L (3.5-5.1); SODIUM LEVEL 144 MMOL/L (136-145); TOTAL PROTEIN 7.1 G/DL (5.7-8.2)
[2024-02-10 06:24] LABS: ABG BASE EXCESS -1.3 (-2.0-2.0); ABG HCO3 24.1 MMOL/L (22.0-26.0); ABG PARTIAL PRESSURE CO2 43.1 mmHg (35.0-45.0); ABG PARTIAL PRESSURE O2 197.3 mmHg (75.0-100.0); ABG STANDARD HCO3 23.4 MMOL/L. (22.0-26.0); ABG TOTAL CO2 25.4 MMOL/L (22.0-29.0); ABG pH (ARTERIAL) 7.365 UNITS (7.350-7.450)
[2024-02-10] MEDS: PHENYTOIN INJection 1,000 MG in NS 100 ML IV ONE (07:26)
[2024-02-10 07:27] LABS: METHADONE URINE NEGATIVE (NEGATIVE)
[2024-02-10 07:28] LABS: AMPHETAMINES LEVEL URINE NEGATIVE (NEGATIVE); BARBITURATES URINE NEGATIVE (NEGATIVE); CANNABINOIDS URINE NEGATIVE (NEGATIVE); COCAINE METABOLITE URINE NEGATIVE (NEGATIVE); OPIATES URINE NEGATIVE (NEGATIVE); PHENCYCLIDINE URINE NEGATIVE (NEGATIVE)
[2024-02-10 07:30] LABS: BENZODIAZEPINES URINE POSITIVE (NEGATIVE)
[2024-02-10] MEDS: MIDAZOLAM INJ 2MG/2ML VIAL IV STA (09:07)
[2024-02-10] MEDS: MIDAZOLAM 100MG/100ML-0.9%NACL 100 MG in IV 1 EA IV SCH (09:11)
[2024-02-10] MEDS ORDERED: HOME MED LIST COMPLETE! XX SCH (09:35)
[2024-02-10] MEDS: NS 1,000 ML IV ONE (09:45)
[2024-02-10] MEDS: MIDAZOLAM INJ 2MG/2ML VIAL IV PRN (11:26)
[2024-02-10] MEDS: PANTOPRAZOLE 40MG VIAL IV SCH (11:53)
[2024-02-10] MEDS: ENOXAPARIN 40MG/0.4ML SYRINGE (J1650 PER 10MG) SC SCH (12:52)
[2024-02-10] MEDS ORDERED: traZODone 50 MG TAB PO PRN (13:10)
[2024-02-10] MEDS ORDERED: LORazepam 2 MG TAB PO PRN (14:40)
[2024-02-10] MEDS: VENLAFAXINE **XR** 37.5 MG CAPSULE PO SCH (14:47)
[2024-02-10] MEDS: THIAMINE 100 MG TAB PO SCH (14:48)
[2024-02-10] MEDS: NICOTINE 21MG/24HR 1 EA TRANSDERMAL TOP SCH (14:48)
[2024-02-10] MEDS: MULTIVITAMINS/MINERALS THERAP 1 TAB PO SCH (14:48)
[2024-02-10] MEDS: PERCOCET 5MG/325MG TAB PO PRN (17:51)
[2024-02-10] MEDS: CHLORASEPTIC SPRAY MT PRN (19:18)
[2024-02-10] MEDS: MAG SULF 1GM/100ML (MAG RUN) 1 GM in IV 1 EA IV ONE (19:49)
[2024-02-10] MEDS: QUEtiapine FUMARATE 100 MG TAB PO SCH (20:30)
[2024-02-10] MEDS: PHENYTOIN ER 100 MG CAP PO SCH (20:30)
[2024-02-11] VITALS (7 sets, daily range): BP systolic 95–118; BP diastolic 53–64; TEMP 97.2–98; O2SAT 94–97
[2024-02-11 05:35] LABS: BASO % 0.4 % (0.0-1.0); EOS # 0.2 10^3/uL (0.0-0.5); EOS % 2.6 % (0.0-3.0); HEMATOCRIT 33.5 % (36.0-47.0); HEMOGLOBIN 10.4 g/dl (12.0-15.5); LYMPH # 3.1 10^3/uL (1.5-5.0); LYMPH % 42.6 % (24.0-44.0); MEAN CORPUSCULAR HEMOGLOBIN 26.9 pg (27.0-33.0); MEAN CORPUSCULAR VOLUME 86.6 fl (80.0-96.0); MONO # 0.4 10^3/uL (0.0-0.8); MONO % 5.8 % (2.0-8.0); NEUTROPHILS # 3.5 10^3/uL (1.5-8.5); NEUTROPHILS % 48.2 % (36.0-66.0); RED BLOOD COUNT 3.87 10^6/uL (4.00-5.40); WHITE BLOOD COUNT 7.3 10^3/uL (4.0-10.0)
[2024-02-11 05:48] LABS: ALBUMIN 2.9 G/DL (3.2-5.2); ALKALINE PHOSPHATASE 84 U/L (46-116); ALT/SGPT < 9 U/L (7.0-40); AST/SGOT 30 U/L (<34); BILIRUBIN,TOTAL 0.2 MG/DL (0.3-1.2); BLOOD UREA NITROGEN 10 MG/DL (9-23); CALCIUM LEVEL 8.2 MG/DL (8.5-10.1); CARBON DIOXIDE LEVEL 27 MMOL/L (20-31); CHLORIDE LEVEL 105 MMOL/L (98-107); CREATININE FOR GFR 0.77 MG/DL (0.55-1.30); GLOMERULAR FILTRATION RATE > 60.0 (>60); GLUCOSE, FASTING 92 MG/DL (60-100); MAGNESIUM LEVEL 1.8 MG/DL (1.8-2.4); POTASSIUM SERUM 4.2 MMOL/L (3.5-5.1); SODIUM LEVEL 138 MMOL/L (136-145); TOTAL PROTEIN 5.5 G/DL (5.7-8.2)
[2024-02-11 06:08] LABS: PLATELET COUNT, AUTOMATED 294 10^3/uL (150-450)
[2024-02-11] MEDS: oxyCODONE 5MG TAB PO PRN (22:11)
[2024-02-12] VITALS (7 sets, daily range): BP systolic 110–121; BP diastolic 52–63; TEMP 96.8–98.1; O2SAT 95–98
[2024-02-12 06:52] LABS: PHENYTOIN (DILANTIN) 7.1 UG/ML (10.0-20.0)
[2024-02-12 06:53] LABS: BLOOD UREA NITROGEN 12 MG/DL (9-23); CALCIUM LEVEL 8.1 MG/DL (8.5-10.1); CARBON DIOXIDE LEVEL 29 MMOL/L (20-31); CHLORIDE LEVEL 104 MMOL/L (98-107); CREATININE FOR GFR 0.73 MG/DL (0.55-1.30); GLOMERULAR FILTRATION RATE > 60.0 (>60); GLUCOSE, FASTING 97 MG/DL (60-100); POTASSIUM SERUM 4.1 MMOL/L (3.5-5.1); SODIUM LEVEL 140 MMOL/L (136-145)
[2024-02-12] MEDS ORDERED: propofoL 200 MG/20 ML VIAL As Ordered ONE (15:33)
[2024-02-12] MEDS ORDERED: ONDANSETRON 4MG 2ML VIAL As Ordered ONE (15:33)
[2024-02-12] MEDS ORDERED: MIDAZOLAM INJ 2MG/2ML VIAL As Ordered ONE (15:33)
[2024-02-12] MEDS ORDERED: fentaNYL 100 MCG/2 ML INJECTION As Ordered ONE (15:33)
[2024-02-12] MEDS ORDERED: LIDOCAINE 2% 100MG/5ML SDV (FOR ANES.) As Ordered ONE (15:33)
[2024-02-12] MEDS ORDERED: ROCURONIUM BROMIDE 50MG/5ML VIAL As Ordered ONE (15:33)
[2024-02-12] MEDS ORDERED: dexmedeTOMIDine (4MCG/ML)200MCG/50ML BTL (PRECEDEX) As Ordered ONE (15:40)
[2024-02-12] MEDS: CLINDAMYCIN 600MG/50ML PREMIX BAG As Ordered ONE (16:41)
[2024-02-12] MEDS ORDERED: ACETAMINOPHEN 1000MG 100ML IV BAG As Ordered ONE (16:50)
[2024-02-12] MEDS ORDERED: HYDROmorphone HCL 2MG/ML 1ML VIAL As Ordered ONE (17:00)
[2024-02-12] MEDS: TRANEXAMIC ACID 100 MG/ML 10ML VIAL As Ordered ONE (17:07)
[2024-02-12] MEDS ORDERED: SUGAMMADEX SODIUM 500 MG/5 ML VIAL (BRIDION) As Ordered ONE (17:10)
[2024-02-12] MEDS: VANCOMYCIN 1000MG/20ML VIAL As Ordered ONE (17:16)
[2024-02-12] MEDS: EPINEPHrine INJ 1 MG/ML 1ML AMP PN ONE (17:25)
[2024-02-12] MEDS ORDERED: MIDAZOLAM INJ 2MG/2ML VIAL IV PRN (17:25)
[2024-02-12] MEDS: LIDOCAINE 1% SDV 5ML VIAL PN ONE (17:25)
[2024-02-12] MEDS: dexAMETHasone 10MG/1ML VIAL PRES.FREE PN ONE (17:25)
[2024-02-12] MEDS: ROPIvacaine 0.5% 30ML VIAL PN ONE (17:25)
[2024-02-12] MEDS ORDERED: fentaNYL 100 MCG/2 ML INJECTION IV PRN ×2 (17:25→18:15)
[2024-02-12] MEDS ORDERED: KETOROLAC 60MG 2ML VIAL As Ordered ONE (18:02)
[2024-02-12] MEDS ORDERED: ONDANSETRON 4MG 2ML VIAL IV PRN (18:15)
[2024-02-12] MEDS ORDERED: oxyCODONE 5MG TAB PO PRN (18:15)
[2024-02-12] MEDS: HYDROMORPHONE HCL 0.5 MG/ 0.5 ML SYRINGE IV PRN (19:12)
[2024-02-12] MEDS: LR 1,000 ML IV SCH (19:12)
[2024-02-13 00:45] VITALS: BP 110/52; TEMP 97; O2SAT 97
[2024-02-13 01:45] VITALS: BP 117/57; TEMP 97.2; O2SAT 96
[2024-02-13 05:45] VITALS: BP 110/48; TEMP 97.5; O2SAT 98
[2024-02-13 09:46] LABS: BASO % 0.1 % (0.0-1.0); HEMATOCRIT 34.8 % (36.0-47.0); HEMOGLOBIN 11.1 g/dl (12.0-15.5); LYMPH % 9.1 % (24.0-44.0); MEAN CORPUSCULAR HEMOGLOBIN 27.1 pg (27.0-33.0); MEAN CORPUSCULAR HGB CONC 31.9 g/dl (32.0-36.5); MEAN CORPUSCULAR VOLUME 84.9 fl (80.0-96.0); MONO # 0.3 10^3/uL (0.0-0.8); MONO % 2.3 % (2.0-8.0); NEUTROPHILS # 9.8 10^3/uL (1.5-8.5); PLATELET COUNT, AUTOMATED 358 10^3/uL (150-450); WHITE BLOOD COUNT 11.1 10^3/uL (4.0-10.0)
[2024-02-13 10:00] VITALS: BP 130/65; TEMP 98.4; O2SAT 95
[2024-02-13 10:14] LABS: BLOOD UREA NITROGEN 13 MG/DL (9-23); CALCIUM LEVEL 9.4 MG/DL (8.5-10.1); CARBON DIOXIDE LEVEL 24 MMOL/L (20-31); CHLORIDE LEVEL 103 MMOL/L (98-107); CREATININE FOR GFR 0.71 MG/DL (0.55-1.30); GLOMERULAR FILTRATION RATE > 60.0 (>60); GLUCOSE, FASTING 177 MG/DL (60-100); MAGNESIUM LEVEL 1.7 MG/DL (1.8-2.4); POTASSIUM SERUM 4.3 MMOL/L (3.5-5.1); SODIUM LEVEL 136 MMOL/L (136-145)
[2024-02-13 14:00] VITALS: BP 131/70; TEMP 98.4; O2SAT 95
[2024-02-13] MEDS ORDERED: OXYC-517 PO (16:36)
[2024-02-13] MEDS: MAG SULF 1GM/100ML (MAG RUN) 1 GM in IV 1 EA IV ONE (16:50)
== END 2024-02-13 18:44 | disposition home health service (06) | DRG 313 ==
LOC: M ED 04:49 → M ED INP 07:59 → M ICU 08:36 → M PCU 21:23 → M MSPAV 02-11 13:01
PROVIDERS: ADMIT Internal Medicine Pulmonary Disease; ATTEND Hospitalist
PROC: 5A1935Z Respiratory Ventilation, Less than 24 Consecutive Hours (ICD-10-PCS; 2024-02-10)
PROC: 0SSF04Z Reposition Right Ankle Joint with Internal Fixation Device, Open Approach (ICD-10-PCS; principal; 2024-02-12 16:00)
DX: S82.841A Displaced bimalleolar fracture of right lower leg, initial encounter for closed fracture (principal); I95.9 Hypotension, unspecified; Z68.41 Body mass index [BMI] 40.0-44.9, adult; I10 Essential (primary) hypertension; G40.901 Epilepsy, unspecified, not intractable, with status epilepticus; E11.9 Type 2 diabetes mellitus without complications; F32.A Depression, unspecified; F10.120 Alcohol abuse with intoxication, uncomplicated; F41.9 Anxiety disorder, unspecified; F17.200 Nicotine dependence, unspecified, uncomplicated; Z88.0 Allergy status to penicillin; Z79.899 Other long term (current) drug therapy; Z88.1 Allergy status to other antibiotic agents; Z88.8 Allergy status to other drugs, medicaments and biological substances; Z91.040 Latex allergy status; X58.XXXA Exposure to other specified factors, initial encounter; Y92.9 Unspecified place or not applicable; Y93.9 Activity, unspecified

== ENCOUNTER → 2024-02-19 | Outpatient (CLI) | payer OTHER, MEDICAID ==
[~2024-02-19] MED LIST changes: +OXYC-517 PO
== END ==
LOC: M SOG 07:57
PROVIDERS: ATTEND Physician Assistant
DX: Z47.89 Encounter for other orthopedic aftercare (principal); M25.571 Pain in right ankle and joints of right foot

== ENCOUNTER 2024-02-21 05:19 | Emergency (ER) | payer MEDICAID, OTHER ==
[~2024-02-21] VITALS: Ht 165.1 cm; Wt 115.2 kg
[~2024-02-21 05:19] MED LIST changes: +FLUO-365 PO; -FLUO20CA22 PO; +ONDA-282 PO; -ONDA4TAB6 PO
[2024-02-21] MEDS: LORazepam 2 MG/ML 1ML VIAL IV STA ×2 (05:20→05:28)
[2024-02-21] MEDS ORDERED: ONDANSETRON 4MG 2ML VIAL As Ordered ONE (05:25)
[2024-02-21] MEDS ORDERED: LORazepam 2 MG/ML 1ML VIAL As Ordered ONE (05:26)
[2024-02-21] MEDS: ONDANSETRON 4MG 2ML VIAL IV ONE (05:28)
[2024-02-21] MEDS: HALOPERIDOL LACTATE 5MG/ML VIAL IV ONE (05:40)
[2024-02-21] MEDS ORDERED: HALOPERIDOL LACTATE 5MG/ML VIAL As Ordered ONE (05:43)
[2024-02-21] MEDS: NS 1,000 ML IV ONE (06:10)
[2024-02-21 06:23] LABS: BASO % 0.4 % (0.0-1.0); EOS # 0.2 10^3/uL (0.0-0.5); EOS % 2.4 % (0.0-3.0); HEMATOCRIT 37.6 % (36.0-47.0); HEMOGLOBIN 12.1 g/dl (12.0-15.5); LYMPH # 2.8 10^3/uL (1.5-5.0); LYMPH % 36.5 % (24.0-44.0); MEAN CORPUSCULAR HEMOGLOBIN 27.2 pg (27.0-33.0); MEAN CORPUSCULAR HGB CONC 32.2 g/dl (32.0-36.5); MEAN CORPUSCULAR VOLUME 84.5 fl (80.0-96.0); MONO # 0.5 10^3/uL (0.0-0.8); MONO % 6.1 % (2.0-8.0); NEUTROPHILS # 4.1 10^3/uL (1.5-8.5); NEUTROPHILS % 53.6 % (36.0-66.0); PLATELET COUNT, AUTOMATED 382 10^3/uL (150-450); RED BLOOD COUNT 4.45 10^6/uL (4.00-5.40); WHITE BLOOD COUNT 7.7 10^3/uL (4.0-10.0)
[2024-02-21 06:48] LABS: BLOOD UREA NITROGEN 10 MG/DL (9-23); CALCIUM LEVEL 8.9 MG/DL (8.5-10.1); CARBON DIOXIDE LEVEL 24 MMOL/L (20-31); CHLORIDE LEVEL 106 MMOL/L (98-107); CREATININE FOR GFR 0.59 MG/DL (0.55-1.30); GLOMERULAR FILTRATION RATE > 60.0 (>60); GLUCOSE, FASTING 153 MG/DL (60-100); POTASSIUM SERUM 4.5 MMOL/L (3.5-5.1); SODIUM LEVEL 141 MMOL/L (136-145)
[2024-02-21 06:50] LABS: PROLACTIN 41.06 NG/ML
[2024-02-21 08:48] LABS: HCG, SERUM QUALITATIVE NEGATIVE (NEGATIVE)
[2024-02-21] MEDS ORDERED: OXYC-517 PO (08:54)
[2024-02-21] MEDS ORDERED: HOME MED LIST COMPLETE! XX SCH (08:55)
[2024-02-21] MEDS: PHENYTOIN INJection 1,000 MG in NS 100 ML IV ONE (09:32)
[2024-02-21 12:30] VITALS: O2SAT 97
[2024-02-21 12:31] VITALS: BP 106/55; TEMP 98.2
== END 2024-02-21 13:10 | disposition home or self-care (01) ==
LOC: M ED 08:19
DX: R56.9 Unspecified convulsions (principal); F10.10 Alcohol abuse, uncomplicated; Z79.899 Other long term (current) drug therapy; Z88.0 Allergy status to penicillin; Z88.1 Allergy status to other antibiotic agents; Z91.040 Latex allergy status
CPT/HCPCS: 80048; 80185; 83605; 84146; 84703; 85025; 96361; 96374; 96375; 99285; J1165; J1630; J2060; J2405

== ENCOUNTER 2024-02-22 16:53 | Emergency (ER) | payer OTHER ==
[~2024-02-22] VITALS: Ht 167.6 cm; Wt 104.5 kg
[2024-02-22 16:53] VITALS: BP 137/63; TEMP 97.4; O2SAT 98
== END 2024-02-22 18:19 | disposition home or self-care (01) ==
LOC: M ED 16:53
DX: Z00.00 Encounter for general adult medical examination without abnormal findings (principal); Z96.661 Presence of right artificial ankle joint; E11.9 Type 2 diabetes mellitus without complications; J45.909 Unspecified asthma, uncomplicated; K21.9 Gastro-esophageal reflux disease without esophagitis; F17.200 Nicotine dependence, unspecified, uncomplicated; Z88.0 Allergy status to penicillin; Z88.1 Allergy status to other antibiotic agents; Z91.040 Latex allergy status; Z91.048 Other nonmedicinal substance allergy status; Z79.899 Other long term (current) drug therapy

== ENCOUNTER 2024-02-28 01:01 | Inpatient (IN) | payer OTHER ==
[2024-02-28] VITALS (20 sets, daily range): BP systolic 77–113; BP diastolic 47–92; TEMP 96.5–98.8; O2SAT 92–100
[~2024-02-28] VITALS: Ht 167.6 cm; Wt 120.1 kg
[2024-02-28] MEDS ORDERED: LORazepam 2 MG/ML 1ML VIAL As Ordered ONE (01:08)
[2024-02-28] MEDS ORDERED: HALOPERIDOL LACTATE 5MG/ML VIAL As Ordered ONE (01:09)
[2024-02-28] MEDS: ROCURONIUM BROMIDE 50MG/5ML VIAL IV SCH (01:18)
[2024-02-28] MEDS: ETOMIDATE INJ 20MG/10ML VIAL IV STA (01:18)
[2024-02-28] MEDS: LORazepam 2 MG/ML 1ML VIAL IV STA (01:18)
[2024-02-28] MEDS: HALOPERIDOL LACTATE 5MG/ML VIAL IV ONE (01:18)
[2024-02-28] MEDS ORDERED: PHENYTOIN INJ 250MG/5ML VIAL IV ONE (01:25)
[2024-02-28] MEDS ORDERED: MIDAZOLAM 5MG/ML 1ML VIAL As Ordered ONE (01:35)
[2024-02-28] MEDS ORDERED: VERAPAMIL 5MG/2ML VIAL IV STA (01:38)
[2024-02-28 01:41] LABS: ABG BASE EXCESS -0.9 (-2.0-2.0); ABG HCO3 24.5 MMOL/L (22.0-26.0); ABG O2 SATURATION 98.8 % (95.0-99.0); ABG PARTIAL PRESSURE CO2 43.2 mmHg (35.0-45.0); ABG STANDARD HCO3 23.8 MMOL/L. (22.0-26.0); ABG TOTAL CO2 25.8 MMOL/L (22.0-29.0); ABG pH (ARTERIAL) 7.371 UNITS (7.350-7.450)
[2024-02-28 01:46] LABS: BASO % 0.4 % (0.0-1.0); EOS # 0.3 10^3/uL (0.0-0.5); EOS % 2.9 % (0.0-3.0); HEMATOCRIT 36.4 % (36.0-47.0); HEMOGLOBIN 11.5 g/dl (12.0-15.5); LYMPH # 3.2 10^3/uL (1.5-5.0); MEAN CORPUSCULAR HEMOGLOBIN 26.7 pg (27.0-33.0); MEAN CORPUSCULAR HGB CONC 31.6 g/dl (32.0-36.5); MEAN CORPUSCULAR VOLUME 84.7 fl (80.0-96.0); MONO # 0.5 10^3/uL (0.0-0.8); MONO % 4.7 % (2.0-8.0); NEUTROPHILS # 5.5 10^3/uL (1.5-8.5); NEUTROPHILS % 57.6 % (36.0-66.0); PLATELET COUNT, AUTOMATED 327 10^3/uL (150-450); WHITE BLOOD COUNT 9.5 10^3/uL (4.0-10.0)
[2024-02-28] MEDS: MIDAZOLAM INJ 2MG/2ML VIAL IV ONE ×2 (01:50→04:19)
[2024-02-28] MEDS: PHENYTOIN IV ONE (01:55)
[2024-02-28] MEDS: NS IV ONE (01:55)
[2024-02-28] MEDS: MIDAZOLAM 5MG/ML 1ML VIAL IV ONE (01:58)
[2024-02-28] MEDS ORDERED: PROPOFOL 1,000 MG/100 ML VIAL As Ordered ONE (02:01)
[2024-02-28] MEDS ORDERED: propofoL 1,000 MG in IV 1 EA IV SCH (02:15)
[2024-02-28] MEDS: propofoL 1,000 MG in IV 1 EA IV SCH (02:28)
[2024-02-28] MEDS: MIDAZOLAM 100MG/100ML-0.9%NACL 100 MG in IV 1 EA IV SCH ×2 (02:31→06:00)
[2024-02-28 03:06] LABS: ETHYL ALCOHOL (ETHANOL) 0.179 % (0.000-0.010)
[2024-02-28 03:08] LABS: ALBUMIN 3.4 G/DL (3.2-5.2); ALKALINE PHOSPHATASE 124 U/L (46-116); ALT/SGPT < 9 U/L (7.0-40); AST/SGOT 37 U/L (<34); BILIRUBIN,DIRECT < 0.1 MG/DL (<0.4); BILIRUBIN,TOTAL < 0.2 MG/DL (0.3-1.2); BLOOD UREA NITROGEN 7 MG/DL (9-23); CALCIUM LEVEL 8.3 MG/DL (8.5-10.1); CARBON DIOXIDE LEVEL 26 MMOL/L (20-31); CHLORIDE LEVEL 108 MMOL/L (98-107); CREATININE FOR GFR 0.54 MG/DL (0.55-1.30); GLOMERULAR FILTRATION RATE > 60.0 (>60); GLUCOSE, FASTING 118 MG/DL (60-100); MAGNESIUM LEVEL 1.7 MG/DL (1.8-2.4); PHOSPHORUS LEVEL 3.3 MG/DL (2.5-4.9); POTASSIUM SERUM 4.2 MMOL/L (3.5-5.1); SODIUM LEVEL 142 MMOL/L (136-145); TOTAL PROTEIN 6.7 G/DL (5.7-8.2)
[2024-02-28 03:31] LABS: AMPHETAMINES LEVEL URINE NEGATIVE (NEGATIVE); BARBITURATES URINE NEGATIVE (NEGATIVE); CANNABINOIDS URINE NEGATIVE (NEGATIVE); COCAINE METABOLITE URINE NEGATIVE (NEGATIVE); METHADONE URINE NEGATIVE (NEGATIVE); OPIATES URINE NEGATIVE (NEGATIVE); PHENCYCLIDINE URINE NEGATIVE (NEGATIVE)
[2024-02-28 03:34] LABS: BENZODIAZEPINES URINE POSITIVE (NEGATIVE)
[2024-02-28] MEDS ORDERED: FENTANYL DRIP LOCK BOX KEY 1 EACH XX PRN (04:15)
[2024-02-28] MEDS: fentaNYL CITRATE/NaCl 1,000 MCG in IV 1 EA IV SCH (04:29)
[2024-02-28] MEDS ORDERED: IPRATROPIUM 0.5MG/ALBUTEROL 2.5MG INH SOL UD 3ML (DUONEB) NEB PRN (04:35)
[2024-02-28] MEDS ORDERED: GLUCOSE 4 GM CHEW PO PRN (04:40)
[2024-02-28] MEDS ORDERED: GLUCAGON INJ 1MG VIAL SC PRN (04:40)
[2024-02-28] MEDS ORDERED: DEXTROSE 50% 50ML SYRINGE IV PRN (04:40)
[2024-02-28] MEDS: levETIRAcetam INJection 2,000 MG in D5W 100 ML IV ONE (04:44)
[2024-02-28] MEDS ORDERED: MED REC CURRENTLY UNOBTAINABLE XX SCH (05:00)
[2024-02-28 05:01] LABS: PROCALCITONIN <0.04 ng/ml
[2024-02-28 05:55] LABS: ABG BASE EXCESS -3.6 (-2.0-2.0); ABG HCO3 20.2 MMOL/L (22.0-26.0); ABG O2 SATURATION 99.1 % (95.0-99.0); ABG PARTIAL PRESSURE CO2 32.3 mmHg (35.0-45.0); ABG PARTIAL PRESSURE O2 192.2 mmHg (75.0-100.0); ABG STANDARD HCO3 21.5 MMOL/L. (22.0-26.0); ABG TOTAL CO2 21.2 MMOL/L (22.0-29.0); ABG pH (ARTERIAL) 7.414 UNITS (7.350-7.450)
[2024-02-28] MEDS: LR 1,000 ML IV ONE ×3 (06:30→13:18)
[2024-02-28] MEDS: HEPARIN SOD (PORCINE) 5000UNITS/ML 1ML VIAL/SYRINGE SC SCH (06:41)
[2024-02-28] MEDS: MAG SULF 1GM/100ML (MAG RUN) 1 GM in IV 1 EA IV ONE (08:30)
[2024-02-28] MEDS: MULTIVITAMIN -ADULT INJECTION 10 ML, THIAMINE INJection 100 MG, FOLIC ACID 1 MG in NS 1... IV ONE (11:01)
[2024-02-28] MEDS: PHENYTOIN 100MG/2ML VIAL IV SCH (14:32)
[2024-02-28] MEDS: levETIRAcetam INJection 1,000 MG in D5W 100 ML IV SCH (17:14)
[2024-02-28] MEDS: THIAMINE 100 MG TAB PO SCH (21:00)
[2024-02-28] MEDS ORDERED: LORazepam 2 MG TAB PO PRN (21:30)
[2024-02-29] MEDS: traZODone 50 MG TAB PO PRN (01:15)
[2024-02-29] MEDS: OXAZEPAM 15MG CAP PO SCH (01:16)
[2024-02-29 05:04] VITALS: BP 115/55; TEMP 97.9; O2SAT 94
[2024-02-29 06:00] VITALS: BP 115/55
[2024-02-29] MEDS: MULTIVITAMINS/MINERALS THERAP 1 TAB PO SCH (08:09)
[2024-02-29] MEDS: FOLIC ACID 1MG TAB PO SCH (08:10)
[2024-02-29 12:00] VITALS: BP 114/56; TEMP 98.1; O2SAT 95
[2024-02-29] MEDS: PHENYTOIN ER 100 MG CAP PO SCH (12:01)
[2024-02-29 19:37] VITALS: BP 113/60; TEMP 98.2; O2SAT 94
[2024-02-29] MEDS: levETIRAcetam 250MG TABLET (KEPPRA) PO SCH (20:05)
[2024-02-29 21:00] VITALS: BP 113/60
[2024-03-01 04:37] VITALS: BP 113/61; TEMP 98.1; O2SAT 95
[2024-03-01 05:00] VITALS: BP 113/61
[2024-03-01 05:54] LABS: HEMATOCRIT 31.4 % (36.0-47.0); MEAN CORPUSCULAR HEMOGLOBIN 27.2 pg (27.0-33.0); MEAN CORPUSCULAR HGB CONC 31.8 g/dl (32.0-36.5); MEAN CORPUSCULAR VOLUME 85.6 fl (80.0-96.0); PLATELET COUNT, AUTOMATED 279 10^3/uL (150-450); RED BLOOD COUNT 3.67 10^6/uL (4.00-5.40); WHITE BLOOD COUNT 7.4 10^3/uL (4.0-10.0)
[2024-03-01 06:15] LABS: ALKALINE PHOSPHATASE 115 U/L (46-116); ALT/SGPT < 9 U/L (7.0-40); AST/SGOT 18 U/L (<34); BILIRUBIN,TOTAL 0.2 MG/DL (0.3-1.2); BLOOD UREA NITROGEN 9 MG/DL (9-23); CALCIUM LEVEL 8.4 MG/DL (8.5-10.1); CARBON DIOXIDE LEVEL 28 MMOL/L (20-31); CHLORIDE LEVEL 106 MMOL/L (98-107); CREATININE FOR GFR 0.64 MG/DL (0.55-1.30); GLOMERULAR FILTRATION RATE > 60.0 (>60); GLUCOSE, FASTING 119 MG/DL (60-100); SODIUM LEVEL 140 MMOL/L (136-145); TOTAL PROTEIN 5.8 G/DL (5.7-8.2)
[2024-03-01 12:00] VITALS: BP 114/60; TEMP 98.2; O2SAT 96
[2024-03-01 20:00] VITALS: BP 128/72; TEMP 98.2; O2SAT 96
[2024-03-02 04:00] VITALS: BP 129/77; TEMP 97.9; O2SAT 98
[2024-03-02 05:51] LABS: HEMATOCRIT 34.1 % (36.0-47.0); HEMOGLOBIN 10.8 g/dl (12.0-15.5); MEAN CORPUSCULAR HEMOGLOBIN 26.9 pg (27.0-33.0); MEAN CORPUSCULAR HGB CONC 31.7 g/dl (32.0-36.5); MEAN CORPUSCULAR VOLUME 84.8 fl (80.0-96.0); PLATELET COUNT, AUTOMATED 314 10^3/uL (150-450); RED BLOOD COUNT 4.02 10^6/uL (4.00-5.40); WHITE BLOOD COUNT 9.1 10^3/uL (4.0-10.0)
[2024-03-02 06:18] LABS: ALBUMIN 3.2 G/DL (3.2-5.2); ALKALINE PHOSPHATASE 123 U/L (46-116); ALT/SGPT < 9 U/L (7.0-40); AST/SGOT 22 U/L (<34); BILIRUBIN,TOTAL 0.2 MG/DL (0.3-1.2); BLOOD UREA NITROGEN 11 MG/DL (9-23); CALCIUM LEVEL 8.7 MG/DL (8.5-10.1); CARBON DIOXIDE LEVEL 25 MMOL/L (20-31); CHLORIDE LEVEL 104 MMOL/L (98-107); GLOMERULAR FILTRATION RATE > 60.0 (>60); GLUCOSE, FASTING 186 MG/DL (60-100); SODIUM LEVEL 138 MMOL/L (136-145); TOTAL PROTEIN 6.2 G/DL (5.7-8.2)
[2024-03-02] MEDS ORDERED: PHEN100C PO (07:52)
[2024-03-02] MEDS ORDERED: KEPP1TAB PO (07:52)
[2024-03-02] MEDS ORDERED: THIA100TA PO (07:52)
[2024-03-02] MEDS ORDERED: Multivitamins PO (07:52)
[2024-03-02] MEDS ORDERED: PANT40TA29 PO (09:26)
== END 2024-03-02 10:37 | disposition home or self-care (01) | DRG 53 ==
LOC: M ED 01:01 → EDBD 01:01 → M ED INP 03:49 → M ICU 05:35 → M MSPAV 15:07
PROVIDERS: ADMIT Internal Medicine; ATTEND Internal Medicine
PROC: 5A1935Z Respiratory Ventilation, Less than 24 Consecutive Hours (ICD-10-PCS; principal; 2024-02-28)
PROC: 0BH17EZ Insertion of Endotracheal Airway into Trachea, Via Natural or Artificial Opening (ICD-10-PCS; 2024-02-28)
DX: G40.901 Epilepsy, unspecified, not intractable, with status epilepticus (principal); J96.00 Acute respiratory failure, unspecified whether with hypoxia or hypercapnia; F10.239 Alcohol dependence with withdrawal, unspecified; F11.20 Opioid dependence, uncomplicated; F39 Unspecified mood [affective] disorder; F10.229 Alcohol dependence with intoxication, unspecified; E83.51 Hypocalcemia; I95.9 Hypotension, unspecified; E83.42 Hypomagnesemia; E11.9 Type 2 diabetes mellitus without complications; I10 Essential (primary) hypertension; E87.20 Acidosis, unspecified; K29.20 Alcoholic gastritis without bleeding; B34.8 Other viral infections of unspecified site; Z79.899 Other long term (current) drug therapy; Z88.0 Allergy status to penicillin; Z88.1 Allergy status to other antibiotic agents; Z88.8 Allergy status to other drugs, medicaments and biological substances; Z91.040 Latex allergy status; Z91.048 Other nonmedicinal substance allergy status; Z68.41 Body mass index [BMI] 40.0-44.9, adult; E66.9 Obesity, unspecified; K21.9 Gastro-esophageal reflux disease without esophagitis

== ENCOUNTER → 2024-03-18 | Outpatient (CLI) | payer OTHER, MEDICAID ==
[~2024-03-18] MED LIST changes: +Multivitamins PO; +THIA100TA PO
== END ==
LOC: M SOG 08:03
PROVIDERS: ATTEND Physician Assistant
DX: Z47.89 Encounter for other orthopedic aftercare (principal); M25.571 Pain in right ankle and joints of right foot

== ENCOUNTER 2024-05-02 23:03 | Inpatient (IN) | payer OTHER, MEDICAID ==
[~2024-05-02] VITALS: Ht 167.6 cm; Wt 114.4 kg
[2024-05-02] MEDS: PHENYTOIN 100MG/2ML VIAL IV ONE (20:19)
[2024-05-02] MEDS: LORazepam 2 MG/ML 1ML VIAL IV STA (23:54)
[2024-05-02] MEDS: levETIRAcetam INJection 1,000 MG in D5W 100 ML IV ONE (23:54)
[2024-05-02 23:55] LABS: BASO % 0.4 % (0.0-1.0); EOS # 0.2 10^3/uL (0.0-0.5); EOS % 2.5 % (0.0-3.0); HEMATOCRIT 39.7 % (36.0-47.0); HEMOGLOBIN 12.5 g/dl (12.0-15.5); LYMPH # 3.3 10^3/uL (1.5-5.0); LYMPH % 35.2 % (24.0-44.0); MEAN CORPUSCULAR HEMOGLOBIN 26.9 pg (27.0-33.0); MEAN CORPUSCULAR HGB CONC 31.5 g/dl (32.0-36.5); MEAN CORPUSCULAR VOLUME 85.6 fl (80.0-96.0); MONO # 0.5 10^3/uL (0.0-0.8); MONO % 5.2 % (2.0-8.0); NEUTROPHILS # 5.2 10^3/uL (1.5-8.5); NEUTROPHILS % 56.2 % (36.0-66.0); PLATELET COUNT, AUTOMATED 284 10^3/uL (150-450); RED BLOOD COUNT 4.64 10^6/uL (4.00-5.40); WHITE BLOOD COUNT 9.2 10^3/uL (4.0-10.0)
[2024-05-03] VITALS (35 sets, daily range): BP systolic 96–152; BP diastolic 52–85; TEMP 96.7–98; O2SAT 93–100
[2024-05-03] MEDS: LORazepam 2 MG/ML 1ML VIAL IV STA ×2 (00:01→20:17)
[2024-05-03] MEDS ORDERED: PROPOFOL 1,000 MG/100 ML VIAL As Ordered ONE (00:09)
[2024-05-03] MEDS: ETOMIDATE INJ 20MG/10ML VIAL IV ONE (00:12)
[2024-05-03] MEDS: SUCCINYLCHOLINE INJ 200MG/10ML VIAL IV ONE (00:12)
[2024-05-03] MEDS: propofoL 1,000 MG in IV 1 EA IV SCH ×3 (00:15→21:00)
[2024-05-03 00:20] LABS: ALBUMIN 3.8 G/DL (3.2-5.2); ALKALINE PHOSPHATASE 103 U/L (46-116); ALT/SGPT < 9 U/L (7.0-40); AST/SGOT 22 U/L (<34); BILIRUBIN,DIRECT < 0.1 MG/DL (<0.4); BILIRUBIN,TOTAL 0.2 MG/DL (0.3-1.2); BLOOD UREA NITROGEN 9 MG/DL (9-23); CALCIUM LEVEL 8.5 MG/DL (8.5-10.1); CARBON DIOXIDE LEVEL 24 MMOL/L (20-31); CHLORIDE LEVEL 107 MMOL/L (98-107); CREATININE FOR GFR 0.71 MG/DL (0.55-1.30); GLOMERULAR FILTRATION RATE > 60.0 (>60); GLUCOSE, FASTING 130 MG/DL (60-100); MAGNESIUM LEVEL 1.6 MG/DL (1.8-2.4); PHOSPHORUS LEVEL 3.5 MG/DL (2.5-4.9); SODIUM LEVEL 140 MMOL/L (136-145); TOTAL PROTEIN 6.9 G/DL (5.7-8.2)
[2024-05-03 00:22] LABS: ETHYL ALCOHOL (ETHANOL) 0.104 % (0.000-0.010)
[2024-05-03 00:30] LABS: AMPHETAMINES LEVEL URINE NEGATIVE (NEGATIVE); BARBITURATES URINE NEGATIVE (NEGATIVE); COCAINE METABOLITE URINE NEGATIVE (NEGATIVE); METHADONE URINE NEGATIVE (NEGATIVE); OPIATES URINE NEGATIVE (NEGATIVE); PHENCYCLIDINE URINE NEGATIVE (NEGATIVE)
[2024-05-03 00:35] LABS: BENZODIAZEPINES URINE POSITIVE (NEGATIVE); CANNABINOIDS URINE POSITIVE (NEGATIVE)
[2024-05-03] MEDS: MIDAZOLAM INJ 2MG/2ML VIAL IV ONE ×3 (00:42→20:53)
[2024-05-03] MEDS: MIDAZOLAM 100MG/100ML-0.9%NACL 100 MG in IV 1 EA IV SCH ×3 (00:43→20:56)
[2024-05-03 00:48] LABS: ABG BASE EXCESS -2.9 (-2.0-2.0); ABG HCO3 22.5 MMOL/L (22.0-26.0); ABG O2 SATURATION 98.2 % (95.0-99.0); ABG PARTIAL PRESSURE CO2 41.6 mmHg (35.0-45.0); ABG PARTIAL PRESSURE O2 122.1 mmHg (75.0-100.0); ABG TOTAL CO2 23.8 MMOL/L (22.0-29.0); ABG pH (ARTERIAL) 7.351 UNITS (7.350-7.450)
[2024-05-03] MEDS ORDERED: propofoL 200 MG/20 ML VIAL ONE (00:51)
[2024-05-03] MEDS ORDERED: SUCCINYLCHOLINE 100MG/5ML SYRINGE ONE (00:51)
[2024-05-03] MEDS: NS 1,000 ML IV ONE (02:30)
[2024-05-03] MEDS ORDERED: MIDAZOLAM INJ 2MG/2ML VIAL IV PRN (02:50)
[2024-05-03] MEDS: PHENYTOIN 100MG/2ML VIAL IV ONE (02:57)
[2024-05-03 03:28] LABS: ABG BASE EXCESS -1.2 (-2.0-2.0); ABG HCO3 24.4 MMOL/L (22.0-26.0); ABG O2 SATURATION 98.8 % (95.0-99.0); ABG PARTIAL PRESSURE CO2 44.4 mmHg (35.0-45.0); ABG PARTIAL PRESSURE O2 150.2 mmHg (75.0-100.0); ABG STANDARD HCO3 23.5 MMOL/L. (22.0-26.0); ABG TOTAL CO2 25.8 MMOL/L (22.0-29.0); ABG pH (ARTERIAL) 7.358 UNITS (7.350-7.450)
[2024-05-03] MEDS: NS 1,000 ML IV SCH ×2 (04:06→17:00)
[2024-05-03] MEDS: MAG SULF 1GM/100ML (MAG RUN) 1 GM in IV 1 EA IV ONE (04:08)
[2024-05-03 08:02] LABS: HEMATOCRIT 34.7 % (36.0-47.0); MEAN CORPUSCULAR HEMOGLOBIN 26.8 pg (27.0-33.0); MEAN CORPUSCULAR HGB CONC 31.7 g/dl (32.0-36.5); MEAN CORPUSCULAR VOLUME 84.6 fl (80.0-96.0); PLATELET COUNT, AUTOMATED 247 10^3/uL (150-450); WHITE BLOOD COUNT 6.1 10^3/uL (4.0-10.0)
[2024-05-03] MEDS ORDERED: levETIRAcetam INJection 1,000 MG in D5W 100 ML IV SCH ×2 (08:30→20:30)
[2024-05-03 08:47] LABS: ALBUMIN 3.1 G/DL (3.2-5.2); ALKALINE PHOSPHATASE 82 U/L (46-116); ALT/SGPT < 9 U/L (7.0-40); AST/SGOT 18 U/L (<34); BILIRUBIN,TOTAL 0.2 MG/DL (0.3-1.2); BLOOD UREA NITROGEN 10 MG/DL (9-23); CALCIUM LEVEL 8.2 MG/DL (8.5-10.1); CARBON DIOXIDE LEVEL 27 MMOL/L (20-31); CHLORIDE LEVEL 111 MMOL/L (98-107); CREATININE FOR GFR 0.71 MG/DL (0.55-1.30); GLOMERULAR FILTRATION RATE > 60.0 (>60); GLUCOSE, FASTING 104 MG/DL (60-100); POTASSIUM SERUM 4.1 MMOL/L (3.5-5.1); SODIUM LEVEL 143 MMOL/L (136-145); TOTAL PROTEIN 5.7 G/DL (5.7-8.2)
[2024-05-03] MEDS ORDERED: MULTIVITAMINS/MINERALS THERAP 1 TAB PO SCH (09:00)
[2024-05-03] MEDS ORDERED: FOLIC ACID 1MG TAB PO SCH (09:00)
[2024-05-03] MEDS: diazePAM 5MG TABLET PO ONE (09:26)
[2024-05-03] MEDS: ENOXAPARIN 40MG/0.4ML SYRINGE (J1650 PER 10MG) SC SCH (09:26)
[2024-05-03] MEDS: PANTOPRAZOLE 40MG VIAL IV SCH (09:26)
[2024-05-03] MEDS: PHENYTOIN 100MG/2ML VIAL IV SCH ×2 (10:06→16:28)
[2024-05-03] MEDS: levETIRAcetam INJection 1,000 MG in D5W 100 ML IV SCH ×2 (10:21→22:17)
[2024-05-03] MEDS ORDERED: CHLORASEPTIC SPRAY MT PRN (15:25)
[2024-05-03] MEDS: ALBUTEROL SULFATE 2.5MG/0.5ML INH NEB SOLN NEB PRN (15:37)
[2024-05-03] MEDS ORDERED: LORazepam 2 MG TAB PO PRN ×2 (15:45→16:20)
[2024-05-03] MEDS ORDERED: THIAMINE 100 MG TAB PO SCH ×2 (16:00→21:00)
[2024-05-03 16:19] LABS: MAGNESIUM LEVEL 1.9 MG/DL (1.8-2.4)
[2024-05-03] MEDS ORDERED: LORazepam 2 MG/ML 1ML VIAL IV PRN (16:30)
[2024-05-03] MEDS ORDERED: HOME MED LIST COMPLETE! XX SCH (16:45)
[2024-05-03] MEDS ORDERED: MIDAZOLAM INJ 2MG/2ML VIAL As Ordered ONE (20:16)
[2024-05-03] MEDS: methylPREDNISolone 125MG 2ML VIAL IV ONE (20:25)
[2024-05-03] MEDS ORDERED: methylPREDNISolone 125MG 2ML VIAL As Ordered ONE (20:26)
[2024-05-03] MEDS: LORazepam 2 MG/ML 1ML VIAL IM STA (20:31)
[2024-05-03] MEDS ORDERED: MIDAZOLAM 100MG/100ML-0.9%NACL IV ONE (20:34)
[2024-05-03] MEDS ORDERED: MIDAZOLAM 5MG/ML 1ML VIAL As Ordered ONE (20:52)
[2024-05-03] MEDS ORDERED: MIDAZOLAM 5MG/ML 1ML VIAL IM ONE (22:15)
[2024-05-03 22:17] LABS: HEMATOCRIT 33.9 % (36.0-47.0); HEMOGLOBIN 10.8 g/dl (12.0-15.5); MEAN CORPUSCULAR HGB CONC 31.9 g/dl (32.0-36.5); MEAN CORPUSCULAR VOLUME 84.8 fl (80.0-96.0); PLATELET COUNT, AUTOMATED 256 10^3/uL (150-450)
[2024-05-03 22:54] LABS: ALBUMIN 3.4 G/DL (3.2-5.2); ALKALINE PHOSPHATASE 94 U/L (46-116); ALT/SGPT < 9 U/L (7.0-40); AST/SGOT 23 U/L (<34); BILIRUBIN,TOTAL 0.4 MG/DL (0.3-1.2); BLOOD UREA NITROGEN 9 MG/DL (9-23); CALCIUM LEVEL 7.8 MG/DL (8.5-10.1); CARBON DIOXIDE LEVEL 26 MMOL/L (20-31); CHLORIDE LEVEL 109 MMOL/L (98-107); CPK CREATINE PHOSPHOKINASE 116 U/L (34-145); CREATININE FOR GFR 0.75 MG/DL (0.55-1.30); GLOMERULAR FILTRATION RATE > 60.0 (>60); GLUCOSE, FASTING 127 MG/DL (60-100); MAGNESIUM LEVEL 1.7 MG/DL (1.8-2.4); POTASSIUM SERUM 3.9 MMOL/L (3.5-5.1); SODIUM LEVEL 140 MMOL/L (136-145); TOTAL PROTEIN 6.1 G/DL (5.7-8.2)
[2024-05-03 23:03] LABS: ABG BASE EXCESS -0.2 (-2.0-2.0); ABG HCO3 24.9 MMOL/L (22.0-26.0); ABG O2 SATURATION 97.5 % (95.0-99.0); ABG PARTIAL PRESSURE CO2 42.6 mmHg (35.0-45.0); ABG PARTIAL PRESSURE O2 100.1 mmHg (75.0-100.0); ABG STANDARD HCO3 24.3 MMOL/L. (22.0-26.0); ABG TOTAL CO2 26.2 MMOL/L (22.0-29.0); ABG pH (ARTERIAL) 7.385 UNITS (7.350-7.450)
[2024-05-04] VITALS (50 sets, daily range): BP systolic 100–135; BP diastolic 49–63; TEMP 97.1–98.9; O2SAT 93–100
[2024-05-04] MEDS: MAG SULF 1GM/100ML (MAG RUN) 1 GM in IV 1 EA IV ONE (00:14)
[2024-05-04] MEDS: NS 1,000 ML IV SCH (00:14)
[2024-05-04 06:25] LABS: HEMATOCRIT 33.9 % (36.0-47.0); HEMOGLOBIN 10.7 g/dl (12.0-15.5); MEAN CORPUSCULAR HGB CONC 31.6 g/dl (32.0-36.5); MEAN CORPUSCULAR VOLUME 85.4 fl (80.0-96.0); PLATELET COUNT, AUTOMATED 255 10^3/uL (150-450); RED BLOOD COUNT 3.97 10^6/uL (4.00-5.40); WHITE BLOOD COUNT 9.4 10^3/uL (4.0-10.0)
[2024-05-04] MEDS: PHENYTOIN 100MG/2ML VIAL IV SCH (06:32)
[2024-05-04 06:53] LABS: ALBUMIN 3.2 G/DL (3.2-5.2); ALKALINE PHOSPHATASE 95 U/L (46-116); ALT/SGPT < 9 U/L (7.0-40); AST/SGOT 26 U/L (<34); BILIRUBIN,TOTAL 0.2 MG/DL (0.3-1.2); BLOOD UREA NITROGEN 9 MG/DL (9-23); CALCIUM LEVEL 7.9 MG/DL (8.5-10.1); CARBON DIOXIDE LEVEL 25 MMOL/L (20-31); CHLORIDE LEVEL 108 MMOL/L (98-107); CREATININE FOR GFR 0.62 MG/DL (0.55-1.30); GLOMERULAR FILTRATION RATE > 60.0 (>60); GLUCOSE, FASTING 164 MG/DL (60-100); POTASSIUM SERUM 4.5 MMOL/L (3.5-5.1); SODIUM LEVEL 141 MMOL/L (136-145)
[2024-05-04] MEDS ORDERED: THIAMINE 200MG 2ML VIAL IV SCH (08:00)
[2024-05-04] MEDS ORDERED: FOLIC ACID 1 MG in NS 50 ML IV SCH (08:30)
[2024-05-04] MEDS ORDERED: MULTIVITAMIN -ADULT INJECTION 10 ML in NS 500 ML IV SCH (09:00)
[2024-05-04] MEDS ORDERED: FOLIC ACID 1MG TAB PO SCH (09:00)
[2024-05-04] MEDS ORDERED: MULTIVITAMINS/MINERALS THERAP 1 TAB PO SCH (09:00)
[2024-05-04] MEDS: LR 1,000 ML IV SCH (09:08)
[2024-05-04] MEDS: MULTIVITAMIN -ADULT INJECTION 10 ML, FOLIC ACID 1 MG, THIAMINE INJection 100 MG in NS 1... IV SCH (09:24)
[2024-05-04 09:48] LABS: PHENYTOIN (DILANTIN) 3.5 UG/ML (10.0-20.0)
[2024-05-04] MEDS: PHENYTOIN INJection 1,000 MG in NS 100 ML IV ONE (14:25)
[2024-05-04] MEDS: MIDAZOLAM INJ 2MG/2ML VIAL IV PRN (15:13)
[2024-05-05] VITALS (31 sets, daily range): BP systolic 92–159; BP diastolic 40–70; TEMP 98.5–101.7; O2SAT 68–100
[2024-05-05 05:30] LABS: HEMATOCRIT 31.3 % (36.0-47.0); HEMOGLOBIN 9.7 g/dl (12.0-15.5); MEAN CORPUSCULAR VOLUME 87.2 fl (80.0-96.0); PLATELET COUNT, AUTOMATED 219 10^3/uL (150-450); RED BLOOD COUNT 3.59 10^6/uL (4.00-5.40); WHITE BLOOD COUNT 12.1 10^3/uL (4.0-10.0)
[2024-05-05 05:53] LABS: PHENYTOIN (DILANTIN) 11.7 UG/ML (10.0-20.0)
[2024-05-05 06:08] LABS: ALBUMIN 2.9 G/DL (3.2-5.2); ALKALINE PHOSPHATASE 81 U/L (46-116); ALT/SGPT < 9 U/L (7.0-40); AST/SGOT 25 U/L (<34); BILIRUBIN,TOTAL < 0.2 MG/DL (0.3-1.2); BLOOD UREA NITROGEN 8 MG/DL (9-23); CALCIUM LEVEL 7.4 MG/DL (8.5-10.1); CARBON DIOXIDE LEVEL 27 MMOL/L (20-31); CHLORIDE LEVEL 111 MMOL/L (98-107); CREATININE FOR GFR 0.66 MG/DL (0.55-1.30); GLOMERULAR FILTRATION RATE > 60.0 (>60); GLUCOSE, FASTING 113 MG/DL (60-100); PHOSPHORUS LEVEL 2.6 MG/DL (2.5-4.9); POTASSIUM SERUM 3.7 MMOL/L (3.5-5.1); SODIUM LEVEL 142 MMOL/L (136-145); TOTAL PROTEIN 5.4 G/DL (5.7-8.2)
[2024-05-05 08:29] LABS: MAGNESIUM LEVEL 1.8 MG/DL (1.8-2.4)
[2024-05-05] MEDS: MULTIVITAMIN -ADULT INJECTION 10 ML, FOLIC ACID 1 MG, THIAMINE INJection 100 MG in NS 1... IV SCH (09:05)
[2024-05-05] MEDS: diazePAM 10MG/2ML SYRINGE IV ONE (11:19)
[2024-05-05] MEDS: ACETAMINOPHEN TAB 650MG DOSE (2X325MG) PO PRN (11:41)
[2024-05-05] MEDS: ACETAMINOPHEN *IV* 1,000 MG in IV 1 EA IV ONE (21:20)
[2024-05-06] VITALS: O2SAT 94
[2024-05-06] MEDS: LORazepam 2 MG/ML 1ML VIAL IV STA (00:22)
[2024-05-06] MEDS ORDERED: dexmedeTOMidine 200 MCG in IV 1 EA IV SCH (01:30)
[2024-05-06] MEDS ORDERED: diazePAM 10MG/2ML SYRINGE IV ONE (01:30)
[2024-05-06] MEDS ORDERED: DILA100C PO (01:46)
[2024-05-06] MEDS ORDERED: KEPP10002 PO (01:46)
== END 2024-05-06 01:55 | disposition left against medical advice (07) | DRG 53 ==
LOC: EDBD 23:03 → M ED 23:03 → M ED INP 05-03 02:49 → M ICU 05-03 04:00
PROVIDERS: ADMIT Internal Medicine; ATTEND Internal Medicine Pulmonary Disease
DX: G40.401 Other generalized epilepsy and epileptic syndromes, not intractable, with status epilepticus (principal); J96.01 Acute respiratory failure with hypoxia; I95.9 Hypotension, unspecified; E87.20 Acidosis, unspecified; E83.42 Hypomagnesemia; F10.229 Alcohol dependence with intoxication, unspecified; F12.10 Cannabis abuse, uncomplicated; Z88.0 Allergy status to penicillin; Z88.8 Allergy status to other drugs, medicaments and biological substances; F17.290 Nicotine dependence, other tobacco product, uncomplicated; Z91.040 Latex allergy status; Z91.148 Patient's other noncompliance with medication regimen for other reason; Z79.899 Other long term (current) drug therapy; Z53.9 Procedure and treatment not carried out, unspecified reason

== ENCOUNTER 2024-05-06 03:59 | Emergency (ER) | payer OTHER ==
[~2024-05-06] VITALS: Ht 167.6 cm; Wt 114.4 kg
[2024-05-06 03:59] VITALS: TEMP 101.1
[~2024-05-06 03:59] MED LIST changes: +KEPP10002 PO
[2024-05-06] MEDS: IPRATROPIUM 0.5MG/ALBUTEROL 2.5MG INH SOL UD 3ML (DUONEB) NEB PRN (04:08)
[2024-05-06] MEDS: methylPREDNISolone 125MG 2ML VIAL IV ONE (04:15)
[2024-05-06 04:33] LABS: ABG BASE EXCESS 2.9 (-2.0-2.0); ABG HCO3 26.9 MMOL/L (22.0-26.0); ABG O2 SATURATION 98.9 % (95.0-99.0); ABG PARTIAL PRESSURE CO2 38.9 mmHg (35.0-45.0); ABG STANDARD HCO3 27.1 MMOL/L. (22.0-26.0); ABG TOTAL CO2 28.1 MMOL/L (22.0-29.0); ABG pH (ARTERIAL) 7.457 UNITS (7.350-7.450)
[2024-05-06] MEDS ORDERED: MEROPENEM INJ 2 GM in NS 100 ML IV ONE (04:40)
[2024-05-06] MEDS ORDERED: VANCOMYCIN HCL 2,000 MG in D5W 500 ML IV ONE (04:45)
[2024-05-06 04:46] VITALS: BP 127/67; O2SAT 93
[2024-05-06] MEDS ORDERED: VANCOMYCIN HCL 1,000 MG, VIAL MATE ADAPTER 1 EACH in D5W 250 ML IV ONE ×2 (05:00→06:00)
[2024-05-06 05:06] LABS: ALBUMIN 3.3 G/DL (3.2-5.2); ALKALINE PHOSPHATASE 93 U/L (46-116); ALT/SGPT < 9 U/L (7.0-40); AST/SGOT 75 U/L (<34); BILIRUBIN,DIRECT 0.3 MG/DL (<0.4); BILIRUBIN,TOTAL 0.8 MG/DL (0.3-1.2); BLOOD UREA NITROGEN 5 MG/DL (9-23); CALCIUM LEVEL 7.8 MG/DL (8.5-10.1); CARBON DIOXIDE LEVEL 27 MMOL/L (20-31); CHLORIDE LEVEL 108 MMOL/L (98-107); CK-MB VALUE MASS 2.5 NG/ML (<3.6); CPK CREATINE PHOSPHOKINASE 1316 U/L (34-145); CREATININE FOR GFR 0.58 MG/DL (0.55-1.30); GLOMERULAR FILTRATION RATE > 60.0 (>60); GLUCOSE, FASTING 140 MG/DL (60-100); MB/CK RELATIVE INDEX 0.18 (< OR =4); POTASSIUM SERUM 3.7 MMOL/L (3.5-5.1); SODIUM LEVEL 143 MMOL/L (136-145); TOTAL PROTEIN 6.5 G/DL (5.7-8.2)
== END 2024-05-06 05:05 | disposition left against medical advice (07) ==
LOC: M ED 03:59
DX: J96.01 Acute respiratory failure with hypoxia (principal); J95.851 Ventilator associated pneumonia; A41.9 Sepsis, unspecified organism; Z53.9 Procedure and treatment not carried out, unspecified reason; F10.10 Alcohol abuse, uncomplicated; R56.9 Unspecified convulsions; F17.290 Nicotine dependence, other tobacco product, uncomplicated; Z88.0 Allergy status to penicillin; Z88.1 Allergy status to other antibiotic agents; Z91.040 Latex allergy status

== ENCOUNTER → 2024-05-12 | Outpatient (CLI) | payer OTHER | LOC: M SOG 14:19 | PROVIDERS: ATTEND Orthopaedic Surgery | DX: Z53.9 Procedure and treatment not carried out, unspecified reason (principal) ==

== ENCOUNTER 2024-05-28 00:13 | Emergency (ER) | payer OTHER ==
[2024-05-28 00:33] VITALS: BP 136/84; TEMP 101.4; O2SAT 95
[2024-05-28] MEDS ORDERED: ACETAMINOPHEN TAB 650MG DOSE (2X325MG) PO ONE (01:00)
[2024-05-28] MEDS ORDERED: IBUPROFEN 800 MG TAB PO ONE (01:00)
[2024-05-28] MEDS ORDERED: levETIRAcetam INJection 1,000 MG in D5W 100 ML IV ONE (01:00)
[2024-05-28 01:06] LABS: BASO % 0.2 % (0.0-1.0); EOS # 0.2 10^3/uL (0.0-0.5); EOS % 1.7 % (0.0-3.0); HEMATOCRIT 34.6 % (36.0-47.0); LYMPH # 1.5 10^3/uL (1.5-5.0); LYMPH % 11.6 % (24.0-44.0); MEAN CORPUSCULAR HEMOGLOBIN 27.1 pg (27.0-33.0); MEAN CORPUSCULAR HGB CONC 31.8 g/dl (32.0-36.5); MEAN CORPUSCULAR VOLUME 85.2 fl (80.0-96.0); MONO # 0.7 10^3/uL (0.0-0.8); MONO % 5.3 % (2.0-8.0); NEUTROPHILS # 10.6 10^3/uL (1.5-8.5); NEUTROPHILS % 80.8 % (36.0-66.0); PLATELET COUNT, AUTOMATED 337 10^3/uL (150-450); RED BLOOD COUNT 4.06 10^6/uL (4.00-5.40); WHITE BLOOD COUNT 13.2 10^3/uL (4.0-10.0)
[2024-05-28 01:45] LABS: ALBUMIN 3.8 G/DL (3.2-5.2); ALKALINE PHOSPHATASE 109 U/L (46-116); ALT/SGPT < 9 U/L (7.0-40); AST/SGOT 33 U/L (<34); BILIRUBIN,TOTAL 0.5 MG/DL (0.3-1.2); BLOOD UREA NITROGEN 6 MG/DL (9-23); CALCIUM LEVEL 9.1 MG/DL (8.5-10.1); CARBON DIOXIDE LEVEL 25 MMOL/L (20-31); CHLORIDE LEVEL 104 MMOL/L (98-107); CREATININE FOR GFR 0.68 MG/DL (0.55-1.30); GLOMERULAR FILTRATION RATE > 60.0 (>60); GLUCOSE, FASTING 130 MG/DL (60-100); POTASSIUM SERUM 3.9 MMOL/L (3.5-5.1); SODIUM LEVEL 137 MMOL/L (136-145); TOTAL PROTEIN 7.2 G/DL (5.7-8.2)
== END 2024-05-28 01:38 | disposition left against medical advice (07) ==
LOC: M ED 00:13
DX: Z53.21 Procedure and treatment not carried out due to patient leaving prior to being seen by health care provider (principal)

== ENCOUNTER → 2024-08-04 | Outpatient (CLI) | payer OTHER, SELFPAY | LOC: M EKG 15:20 | PROVIDERS: ATTEND Nurse Practitioner Psychiatric/Mental Health | DX: F39 Unspecified mood [affective] disorder (principal); I44.0 Atrioventricular block, first degree; I45.10 Unspecified right bundle-branch block ==

== ENCOUNTER 2024-08-30 08:08 | Emergency (ER) | payer OTHER, SELFPAY ==
[~2024-08-30] VITALS: Ht 167.6 cm; Wt 105.3 kg
[2024-08-30 11:52] LABS: BASO % 0.3 % (0.0-1.0); EOS # 0.1 10^3/uL (0.0-0.5); EOS % 1.7 % (0.0-3.0); HEMATOCRIT 35.3 % (36.0-47.0); HEMOGLOBIN 11.2 g/dl (12.0-15.5); LYMPH # 2.2 10^3/uL (1.5-5.0); LYMPH % 33.9 % (24.0-44.0); MEAN CORPUSCULAR HGB CONC 31.7 g/dl (32.0-36.5); MEAN CORPUSCULAR VOLUME 81.9 fl (80.0-96.0); MONO # 0.3 10^3/uL (0.0-0.8); NEUTROPHILS # 3.9 10^3/uL (1.5-8.5); NEUTROPHILS % 59.9 % (36.0-66.0); PLATELET COUNT, AUTOMATED 298 10^3/uL (150-450); RED BLOOD COUNT 4.31 10^6/uL (4.00-5.40); WHITE BLOOD COUNT 6.6 10^3/uL (4.0-10.0)
[2024-08-30 12:16] LABS: ALBUMIN 3.6 G/DL (3.2-5.2); ALKALINE PHOSPHATASE 80 U/L (35-104); ALT/SGPT < 9 U/L (7.0-40); AST/SGOT 33 U/L (<34); BILIRUBIN,TOTAL 0.5 MG/DL (0.3-1.2); BLOOD UREA NITROGEN 12 MG/DL (9-23); CALCIUM LEVEL 8.9 MG/DL (8.5-10.1); CARBON DIOXIDE LEVEL 23 MMOL/L (20-31); CHLORIDE LEVEL 107 MMOL/L (98-107); CREATININE FOR GFR 0.71 MG/DL (0.55-1.30); GLOMERULAR FILTRATION RATE > 60.0 (>60); GLUCOSE, FASTING 168 MG/DL (60-100); POTASSIUM SERUM 3.6 MMOL/L (3.5-5.1); SODIUM LEVEL 138 MMOL/L (136-145); TOTAL PROTEIN 7.1 G/DL (5.7-8.2)
[2024-08-30 12:18] LABS: FREE T4 1.29 NG/DL (0.89-1.76)
[2024-08-30 12:49] LABS: HCG, SERUM QUALITATIVE NEGATIVE (NEGATIVE)
[2024-08-30 13:50] VITALS: BP 128/75; TEMP 97.2; O2SAT 100
[2024-08-30 14:56] LABS: HEMOGLOBIN A1c 5.7 % (4.0-6.0)
== END 2024-08-30 14:24 | disposition home or self-care (01) ==
LOC: M ED 08:08
DX: R73.9 Hyperglycemia, unspecified (principal); D64.9 Anemia, unspecified; R63.8 Other symptoms and signs concerning food and fluid intake; F17.200 Nicotine dependence, unspecified, uncomplicated; Z91.040 Latex allergy status; Z88.0 Allergy status to penicillin; Z88.1 Allergy status to other antibiotic agents; Z91.048 Other nonmedicinal substance allergy status; Z79.899 Other long term (current) drug therapy

== ENCOUNTER 2024-09-16 02:42 | Emergency (ER) | payer OTHER ==
[~2024-09-16] VITALS: Ht 167.6 cm; Wt 100.0 kg
[2024-09-16 03:54] LABS: BASO % 0.3 % (0.0-1.0); EOS # 0.1 10^3/uL (0.0-0.5); EOS % 1.8 % (0.0-3.0); HEMATOCRIT 34.6 % (36.0-47.0); LYMPH # 1.8 10^3/uL (1.5-5.0); LYMPH % 27.7 % (24.0-44.0); MEAN CORPUSCULAR HEMOGLOBIN 26.4 pg (27.0-33.0); MEAN CORPUSCULAR HGB CONC 31.8 g/dl (32.0-36.5); MEAN CORPUSCULAR VOLUME 83.2 fl (80.0-96.0); MONO # 0.3 10^3/uL (0.0-0.8); MONO % 4.7 % (2.0-8.0); NEUTROPHILS # 4.3 10^3/uL (1.5-8.5); NEUTROPHILS % 65.2 % (36.0-66.0); PLATELET COUNT, AUTOMATED 235 10^3/uL (150-450); RED BLOOD COUNT 4.16 10^6/uL (4.00-5.40); VENOUS BASE EXCESS -9.1 (-2.0-2.0); VENOUS HCO3 15.1 MMOL/L (23.0-27.0); VENOUS O2 SATURATION 98.1 % (60.0-80.0); VENOUS PARTIAL PRESSURE CO2 26.9 mmHg (38.0-50.0); VENOUS PARTIAL PRESSURE O2 158.4 mmHg (30.0-50.0); VENOUS PH 7.367 UNITS (7.330-7.430); VENOUS TOTAL CO2 15.9 MMOL/L (24.0-28.0); WHITE BLOOD COUNT 6.6 10^3/uL (4.0-10.0)
[2024-09-16] MEDS: NS (Normal Saline) 0.9% 1,000 ML IV ONE (05:10)
[2024-09-16 05:35] LABS: PROLACTIN 3.31 NG/ML
[2024-09-16] MEDS: levETIRAcetam INJection 1,000 MG in D5W 100 ML IV ONE (05:38)
[2024-09-16 05:42] LABS: ETHYL ALCOHOL (ETHANOL) 0.014 % (0.000-0.010)
[2024-09-16 05:46] LABS: PHENYTOIN (DILANTIN) < 2.0 UG/ML (10.0-20.0)
[2024-09-16] MEDS ORDERED: KEPP10002 PO (05:47)
[2024-09-16] MEDS ORDERED: DILA100C PO (05:47)
[2024-09-16 05:53] LABS: ALBUMIN 3.2 G/DL (3.2-5.2); ALKALINE PHOSPHATASE 57 U/L (35-104); ALT/SGPT < 9 U/L (7.0-40); AST/SGOT 29 U/L (<34); BILIRUBIN,DIRECT < 0.1 MG/DL (<0.4); BILIRUBIN,TOTAL 0.2 MG/DL (0.3-1.2); BLOOD UREA NITROGEN 9 MG/DL (9-23); CARBON DIOXIDE LEVEL 24 MMOL/L (20-31); CHLORIDE LEVEL 109 MMOL/L (98-107); GLOMERULAR FILTRATION RATE > 60.0 (>60); GLUCOSE, FASTING 92 MG/DL (60-100); MAGNESIUM LEVEL 1.8 MG/DL (1.8-2.4); PHOSPHORUS LEVEL 3.7 MG/DL (2.5-4.9); POTASSIUM SERUM 4.3 MMOL/L (3.5-5.1); SODIUM LEVEL 142 MMOL/L (136-145); TOTAL PROTEIN 5.8 G/DL (5.7-8.2)
[2024-09-16] MEDS: PHENYTOIN 100MG/2ML VIAL IV ONE (05:59)
[2024-09-16 06:01] VITALS: BP 101/58; TEMP 97.8; O2SAT 99
== END 2024-09-16 06:10 | disposition home or self-care (01) ==
LOC: EDBD 02:42 → M ED 02:42
DX: R56.9 Unspecified convulsions (principal); Z91.148 Patient's other noncompliance with medication regimen for other reason; F43.10 Post-traumatic stress disorder, unspecified; F41.9 Anxiety disorder, unspecified; F90.9 Attention-deficit hyperactivity disorder, unspecified type; F17.200 Nicotine dependence, unspecified, uncomplicated; Z91.040 Latex allergy status; Z88.0 Allergy status to penicillin
CPT/HCPCS: 80048; 80076; 80177; 80185; 82077; 82140; 82330; 82803; 83605; 83735; 84100; 84146; 85025; 87486; 87581; 87633; 87798; 93041; 94760; 96365; 96375; 99285; J1165; J1953

== ENCOUNTER → 2024-12-07 | Outpatient (CLI) | payer OTHER | LOC: M SOG 07:54 | PROVIDERS: ATTEND Physician Assistant | DX: Z47.89 Encounter for other orthopedic aftercare (principal); M25.571 Pain in right ankle and joints of right foot ==

== ENCOUNTER 2025-01-09 17:52 | Emergency (ER) | payer OTHER ==
[~2025-01-09] VITALS: Ht 167.6 cm; Wt 101.2 kg
[2025-01-09 18:00] VITALS: BP 136/73; TEMP 103.2; O2SAT 96
[2025-01-09] MEDS: ACETAMINOPHEN 500 MG TAB PO ONE (18:14)
== END 2025-01-09 19:11 | disposition left against medical advice (07) ==
LOC: M ED 17:52
DX: Z53.21 Procedure and treatment not carried out due to patient leaving prior to being seen by health care provider (principal)

== ENCOUNTER 2025-04-22 03:51 | Emergency (ER) | payer OTHER ==
[~2025-04-22] VITALS: Ht 172.7 cm; Wt 77.3 kg
[~2025-04-22 03:51] MED LIST changes: +LAMO-18; -LAMO25TA4
[2025-04-22 04:21] VITALS: BP 114/66; TEMP 97.3; O2SAT 93
[2025-04-22 04:40] LABS: BASO # 0.0 10^3/uL (0.0-0.2); BASO % 0.3 % (0.0-1.0); EOS # 0.1 10^3/uL (0.0-0.5); EOS % 1.1 % (0.0-3.0); LYMPH # 2.2 10^3/uL (1.5-5.0); LYMPH % 20.9 % (24.0-44.0); MONO # 0.4 10^3/uL (0.0-0.8); MONO % 3.5 % (2.0-8.0); NEUTROPHILS # 7.7 10^3/uL (1.5-8.5); NEUTROPHILS % 73.7 % (36.0-66.0); PLATELET COUNT, AUTOMATED 275 10^3/uL (150-450)
[2025-04-22 04:40] LABS: ABG BASE EXCESS -4.8 (-2.0-2.0); ABG HCO3 18.9 MMOL/L (22.0-26.0); ABG O2 SATURATION 98.9 % (95.0-99.0); ABG PARTIAL PRESSURE CO2 31.8 mmHg (35.0-45.0); ABG PARTIAL PRESSURE O2 138.1 mmHg (75.0-100.0); ABG STANDARD HCO3 20.6 MMOL/L. (22.0-26.0); ABG TOTAL CO2 19.9 MMOL/L (22.0-29.0); ABG pH (ARTERIAL) 7.393 UNITS (7.350-7.450)
[2025-04-22 05:04] LABS: ETHYL ALCOHOL (ETHANOL) 0.143 % (0.000-0.010)
[2025-04-22 05:06] LABS: ALT/SGPT < 9 U/L (7.0-40); AST/SGOT 19 U/L (<34); CALCIUM LEVEL 8.8 MG/DL (8.5-10.1); CARBON DIOXIDE LEVEL 24 MMOL/L (20-31); CHLORIDE LEVEL 107 MMOL/L (98-107); CREATININE FOR GFR 0.65 MG/DL (0.55-1.30); GLOMERULAR FILTRATION RATE > 90.0 (>60); MAGNESIUM LEVEL 2.0 MG/DL (1.8-2.4); PHOSPHORUS LEVEL 3.9 MG/DL (2.5-4.9); POTASSIUM SERUM 3.4 MMOL/L (3.5-5.1); SODIUM LEVEL 146 MMOL/L (136-145)
[2025-04-22 05:47] LABS: AMPHETAMINES LEVEL URINE NEGATIVE (NEGATIVE); BARBITURATES URINE NEGATIVE (NEGATIVE)
[2025-04-22 05:48] LABS: COCAINE METABOLITE URINE NEGATIVE (NEGATIVE); METHADONE URINE NEGATIVE (NEGATIVE); OPIATES URINE NEGATIVE (NEGATIVE); PHENCYCLIDINE URINE NEGATIVE (NEGATIVE)
[2025-04-22 05:50] LABS: BENZODIAZEPINES URINE POSITIVE (NEGATIVE); CANNABINOIDS URINE POSITIVE (NEGATIVE)
== END 2025-04-22 05:31 | disposition left against medical advice (07) ==
LOC: M ED 03:51
DX: R56.9 Unspecified convulsions (principal); F10.129 Alcohol abuse with intoxication, unspecified; Z79.899 Other long term (current) drug therapy; Z88.0 Allergy status to penicillin; Z88.1 Allergy status to other antibiotic agents; Z91.040 Latex allergy status

== ENCOUNTER 2025-05-09 15:30 | Day surgery (SDC) | payer OTHER ==
[~2025-05-09] VITALS: Ht 167.6 cm; Wt 92.5 kg
[2025-05-09] MEDS ORDERED: LR 1,000 ML IV SCH ×2 (15:45→20:00)
[2025-05-09] MEDS ORDERED: OXYC-517 PO (16:38)
[2025-05-09] MEDS ORDERED: CELE1CAP4 PO (16:38)
[2025-05-09] MEDS ORDERED: ACET-907 PO (16:38)
[2025-05-09] MEDS ORDERED: ONDA-282 PO (16:38)
[2025-05-09] MEDS ORDERED: COLA100C5 PO (16:38)
[2025-05-09] MEDS ORDERED: TRANEXAMIC ACID 100 MG/ML 10ML VIAL IV ONE (17:25)
[2025-05-09] MEDS ORDERED: ceFAZolin SOD 2 GM IV ONCE IV ONE (17:25)
[2025-05-09] MEDS: LIDOCAINE 1% SDV 5 ML VIAL PN ONE (18:30)
[2025-05-09] MEDS: dexAMETHasone 10 MG/1 ML VIAL PRES.FREE PN ONE (18:30)
[2025-05-09] MEDS: ROPIvacaine 0.5% 30ML VIAL PN ONE (18:30)
[2025-05-09] MEDS: MIDAZOLAM INJ 2 MG/2 ML VIAL IV PRN (18:32)
[2025-05-09] MEDS: EPINEPHrine INJ 1 MG/ML 1ML AMP PN ONE (18:32)
[2025-05-09] MEDS ORDERED: TRANEXAMIC ACID 100 MG/ML 10ML VIAL As Ordered ONE (18:33)
[2025-05-09] MEDS ORDERED: dexAMETHasone 4 MG/ML 1 ML VIAL As Ordered ONE (18:36)
[2025-05-09] MEDS ORDERED: ONDANSETRON 4MG 2ML VIAL As Ordered ONE (18:36)
[2025-05-09] MEDS ORDERED: MIDAZOLAM INJ 2 MG/2 ML VIAL As Ordered ONE (18:36)
[2025-05-09] MEDS ORDERED: LIDOCAINE 2% 100 MG/5 ML SDV (FOR ANES.) As Ordered ONE (18:36)
[2025-05-09] MEDS ORDERED: GLYCOPYRROLATE INJ 0.2 MG/ML 2 ML VIAL As Ordered ONE (19:29)
[2025-05-09] MEDS ORDERED: ACETAMINOPHEN 1000MG/100ML IV BAG As Ordered ONE (19:32)
[2025-05-09] MEDS ORDERED: ONDANSETRON 4MG 2ML VIAL IV PRN (20:00)
[2025-05-09] MEDS ORDERED: HYDROMORPHONE HCL 0.5 MG/0.5 ML SYRINGE IV PRN (20:00)
[2025-05-09 20:55] VITALS: BP 117/57; TEMP 96.8; O2SAT 98
== END 2025-05-09 21:40 | disposition home or self-care (01) ==
LOC: EDBD → M SDC 15:30
PROVIDERS: ATTEND Orthopaedic Surgery
DX: T84.89XA Other specified complication of internal orthopedic prosthetic devices, implants and grafts, initial encounter (principal); Y79.2 Prosthetic and other implants, materials and accessory orthopedic devices associated with adverse incidents; F17.210 Nicotine dependence, cigarettes, uncomplicated; Z88.0 Allergy status to penicillin; Z88.8 Allergy status to other drugs, medicaments and biological substances; Z88.1 Allergy status to other antibiotic agents
CPT/HCPCS: 20680; 76000; 81025; J0131; J0166; J0665; J0690; J1100; J1596; J2250; J2405; J2795; J3010

== ENCOUNTER → 2025-05-18 | Outpatient (CLI) | payer OTHER ==
[~2025-05-18] MED LIST changes: +ACET-907 PO; +CELE1CAP4 PO
== END ==
LOC: M SOG 06:56
PROVIDERS: ATTEND Physician Assistant
DX: T84.84XA Pain due to internal orthopedic prosthetic devices, implants and grafts, initial encounter (principal); Z53.9 Procedure and treatment not carried out, unspecified reason

== ENCOUNTER 2025-06-13 23:25 | Emergency (ER) | payer OTHER ==
[~2025-06-13] VITALS: Ht 167.6 cm; Wt 88.3 kg
[2025-06-13 23:58] VITALS: BP 115/61; TEMP 97.2; O2SAT 99
== END 2025-06-14 00:31 | disposition left against medical advice (07) ==
LOC: M ED 23:25 → EDBD 23:25 → M ED 06-14 00:31
DX: Z53.21 Procedure and treatment not carried out due to patient leaving prior to being seen by health care provider (principal)

== ENCOUNTER 2025-07-08 18:29 | Emergency (ER) | payer OTHER ==
[~2025-07-08] VITALS: Ht 167.6 cm; Wt 85.1 kg
[2025-07-08 19:46] LABS: BASO # 0.0 10^3/uL (0.0-0.2); BASO % 0.3 % (0.0-1.0); EOS # 0.1 10^3/uL (0.0-0.5); EOS % 1.3 % (0.0-3.0); LYMPH # 2.4 10^3/uL (1.5-5.0); LYMPH % 23.8 % (24.0-44.0); MONO # 0.4 10^3/uL (0.0-0.8); MONO % 3.9 % (2.0-8.0); NEUTROPHILS # 7.0 10^3/uL (1.5-8.5); NEUTROPHILS % 70.4 % (36.0-66.0); PLATELET COUNT, AUTOMATED 239 10^3/uL (150-450)
[2025-07-08 19:58] LABS: KETONE, URINE AUTO RFX 1+ mg/dL (NEGATIVE); MUCUS, URINE RFX SMALL (NEGATIVE); NITRITE, URINE AUTO RFX NEGATIVE (NEGATIVE); RBC, URINE AUTO RFX 0 /HPF (0-3); SQUAM EPITHELIAL CELL UR AURFX 3 /HPF (0-6); WBC, URINE AUTO RFX 4 /HPF (0-3)
[2025-07-08 19:59] LABS: LEUKOCYTE ESTERASE UR AUTO RFX 1+ (NEGATIVE)
[2025-07-08 20:25] LABS: ALT/SGPT < 9 U/L (7.0-40); AST/SGOT 26 U/L (<34); CALCIUM LEVEL 8.9 MG/DL (8.5-10.1); CARBON DIOXIDE LEVEL 21 MMOL/L (20-31); CHLORIDE LEVEL 104 MMOL/L (98-107); CREATININE FOR GFR 0.53 MG/DL (0.55-1.30); GLOMERULAR FILTRATION RATE > 90.0 (>60); POTASSIUM SERUM 4.4 MMOL/L (3.5-5.1); SODIUM LEVEL 139 MMOL/L (136-145)
[2025-07-08 20:50] LABS: HCG, SERUM QUANTITATIVE 110222.4 MIU/ML (<4.2)
[2025-07-08] MEDS ORDERED: PROM25TA12 PO (21:39)
[2025-07-08 22:07] VITALS: BP 113/56; TEMP 98.3; O2SAT 97
== END 2025-07-08 22:09 | disposition home or self-care (01) ==
LOC: M ED 18:29
DX: O21.9 Vomiting of pregnancy, unspecified (principal); Z3A.11 11 weeks gestation of pregnancy
CPT/HCPCS: 80048; 80076; 81001; 83690; 84702; 85025; 87086; 96374; 99284; J2550

== ENCOUNTER 2025-07-10 19:51 | Emergency (ER) | payer OTHER ==
[~2025-07-10] VITALS: Ht 167.6 cm; Wt 88.6 kg
[~2025-07-10 19:51] MED LIST changes: +PROM25TA12 PO
[2025-07-10] MEDS ORDERED: FLUC150T9 (20:04)
[2025-07-10] MEDS ORDERED: METR-265 (20:04)
[2025-07-10 21:57] VITALS: BP 120/80; TEMP 97.4; O2SAT 99
[2025-07-10 22:07] LABS: BASO # 0.0 10^3/uL (0.0-0.2); BASO % 0.3 % (0.0-1.0); EOS # 0.2 10^3/uL (0.0-0.5); EOS % 1.5 % (0.0-3.0); LYMPH # 3.3 10^3/uL (1.5-5.0); LYMPH % 31.8 % (24.0-44.0); MONO # 0.4 10^3/uL (0.0-0.8); MONO % 3.6 % (2.0-8.0); NEUTROPHILS # 6.5 10^3/uL (1.5-8.5); NEUTROPHILS % 62.3 % (36.0-66.0); PLATELET COUNT, AUTOMATED 272 10^3/uL (150-450)
[2025-07-10 22:19] LABS: APPEARANCE, URINE HAZY (CLEAR); BACTERIA, URINE AUTO 1+ (NEGATIVE); BILIRUBIN, URINE AUTO 2+ (NEGATIVE); BLOOD, URINE BLOOD NEGATIVE (NEGATIVE); GLUCOSE, URINE (UA) AUTO NEGATIVE (NEGATIVE); KETONE, URINE AUTO NEGATIVE (NEGATIVE); LEUKOCYTE ESTERASE, URINE AUTO TRACE (NEGATIVE); MUCUS, URINE LARGE (NEGATIVE); NITRITE, URINE AUTO NEGATIVE (NEGATIVE); PROTEIN, URINE AUTO 1+ mg/dL (NEGATIVE); RBC, URINE AUTO 1 /HPF (0-3); SPECIFIC GRAVITY URINE AUTO 1.029 (1.002-1.035); SQUAMOUS EPITHELIAL CELL UR AU 23 /HPF (0-6); UROBILINOGEN, URINE AUTO 4.0 mg/dL (0.0-2.0); WBC, URINE AUTO 5 /HPF (0-3)
[2025-07-10 22:56] LABS: CALCIUM LEVEL 8.6 MG/DL (8.5-10.1); CARBON DIOXIDE LEVEL 26 MMOL/L (20-31); CHLORIDE LEVEL 102 MMOL/L (98-107); CREATININE FOR GFR 0.52 MG/DL (0.55-1.30); GLOMERULAR FILTRATION RATE > 90.0 (>60); HCG, SERUM QUANTITATIVE 108083.3 MIU/ML (<4.2); POTASSIUM SERUM 3.4 MMOL/L (3.5-5.1); SODIUM LEVEL 140 MMOL/L (136-145)
== END 2025-07-11 00:37 | disposition left against medical advice (07) ==
LOC: M ED 19:51
DX: Z53.21 Procedure and treatment not carried out due to patient leaving prior to being seen by health care provider (principal)

== ENCOUNTER → 2025-09-05 | Outpatient (REF) | payer OTHER ==
[~2025-09-05] MED LIST changes: +FLUC150T9; +METR-265
[2025-09-05 14:57] LABS: BASO # 0.0 10^3/uL (0.0-0.2); BASO % 0.4 % (0.0-1.0); EOS # 0.1 10^3/uL (0.0-0.5); EOS % 1.5 % (0.0-3.0); LYMPH # 2.5 10^3/uL (1.5-5.0); LYMPH % 30.5 % (24.0-44.0); MONO # 0.3 10^3/uL (0.0-0.8); MONO % 4.0 % (2.0-8.0); NEUTROPHILS # 5.1 10^3/uL (1.5-8.5); NEUTROPHILS % 62.7 % (36.0-66.0); PLATELET COUNT, AUTOMATED 238 10^3/uL (150-450)
[2025-09-05 15:27] LABS: ALT/SGPT < 9 U/L (7.0-40); AST/SGOT 18 U/L (<34); CALCIUM LEVEL 8.0 MG/DL (8.5-10.1); CARBON DIOXIDE LEVEL 24 MMOL/L (20-31); CHLORIDE LEVEL 107 MMOL/L (98-107); CREATININE FOR GFR 0.52 MG/DL (0.55-1.30); GLOMERULAR FILTRATION RATE > 90.0 (>60); MAGNESIUM LEVEL 1.6 MG/DL (1.8-2.4); PHOSPHORUS LEVEL 3.8 MG/DL (2.5-4.9); POTASSIUM SERUM 3.9 MMOL/L (3.5-5.1); SODIUM LEVEL 138 MMOL/L (136-145); TRIGLYCERIDES LEVEL 235 MG/DL (<150)
== END ==
LOC: M LAB REF 13:59
DX: O21.0 Mild hyperemesis gravidarum (principal); E87.6 Hypokalemia

== ENCOUNTER → 2025-09-12 | Outpatient (REF) | payer OTHER ==
[2025-09-12 14:45] LABS: BASO # 0.0 10^3/uL (0.0-0.2); BASO % 0.3 % (0.0-1.0); EOS # 0.1 10^3/uL (0.0-0.5); EOS % 1.6 % (0.0-3.0); LYMPH # 2.5 10^3/uL (1.5-5.0); LYMPH % 28.2 % (24.0-44.0); MONO # 0.5 10^3/uL (0.0-0.8); MONO % 5.1 % (2.0-8.0); NEUTROPHILS # 5.6 10^3/uL (1.5-8.5); NEUTROPHILS % 63.3 % (36.0-66.0); PLATELET COUNT, AUTOMATED 258 10^3/uL (150-450)
[2025-09-12 15:12] LABS: ALT/SGPT < 9 U/L (7.0-40); AST/SGOT 17 U/L (<34); CALCIUM LEVEL 7.9 MG/DL (8.5-10.1); CARBON DIOXIDE LEVEL 26 MMOL/L (20-31); CHLORIDE LEVEL 103 MMOL/L (98-107); CREATININE FOR GFR 0.50 MG/DL (0.55-1.30); GLOMERULAR FILTRATION RATE > 90.0 (>60); MAGNESIUM LEVEL 1.8 MG/DL (1.8-2.4); PHOSPHORUS LEVEL 4.7 MG/DL (2.5-4.9); POTASSIUM SERUM 4.3 MMOL/L (3.5-5.1); SODIUM LEVEL 139 MMOL/L (136-145); TRIGLYCERIDES LEVEL 170 MG/DL (<150)
== END ==
LOC: M LAB REF 12:08
DX: O21.0 Mild hyperemesis gravidarum (principal); E87.6 Hypokalemia